=== PATIENT | male | born 1950 | race Caucasian/White ===

== ENCOUNTER 2019-05-06 12:41 | Day surgery (SDC) | payer OTHER ==
[~2019-05-06] VITALS: Ht 177.8 cm; Wt 120.7 kg
[~2019-05-06 12:41] MED LIST: ASPI81EC PO; Alavert D-12 A1 EACH; Albuterol2.5 MG/0.5 INH; Altoprev20 MG; BUPR100 PO; CELE200 PO; CEPH500 PO; CHARCOAL; CITA20 PO; CLARITIN10 MG PO; DIAZ5 PO; DONE10 PO; Depo-Testos200 MG/ML; Endocet 7.5-321 EACH; FLUSAL1005; FLUT1DIS2 INH; Flonase 0.05% N16 GM; GABA300; GABA300 PO; GLIPIZIDE; GUAI600T33 PO; HYDACE5 PO; HYDACE5325 PO; HYDURE500; HYDURE500 PO; INSULANI SC; INVOKANA100 MG; INVOKANA100 MG PO; Ipratropium Bro30 ML; LIRA0.6P; LISI5; LISI5 PO; LORA10ER PO; LOVA20 PO; Lovastatin20 MG PO; METF850; METF850 PO; METFORMIN; MODA200; MODA200 PO; Metformin HCl850 MG PO; NAPR500 PO; NEUPRO1 EAC1 TD; OMEP10ER PO; OMEP20ER PO; ONGLYZA PO; OXYACE5T PO; Omeprazole20 M1; PRAM.5; PROP30DR; PSEHYDGUAL PO; Percocet 10-321 EACH PO; Prilosec Otc20 MG PO; RAME8; ROPI.25 PO; RXHYDACE PO; SAXAGLIPTIN PO; SERT50; SERT50 PO; SULTRIDS PO; Stool Softener100 MG; TAMS.4ER PO; TIOT18; TIOT18 INH; VARE1 PO; VICTOZA 3-0.6 MG/0.1 SC; VITAMIN D35000 UNIT; VITAMIN D35000 UNIT PO; Ventolin Soln3 ML; WARF1; WARF2; WARF3 PO
== END 2019-05-06 14:53 | disposition home or self-care (01) ==
LOC: ORSCSDS 12:41
PROVIDERS: Internal Medicine Gastroenterology
PROC: 0DB68ZX Excision of Stomach, Via Natural or Artificial Opening Endoscopic, Diagnostic (ICD-10-PCS; principal; 2019-05-06 14:00)
PROC: 0D757ZZ Dilation of Esophagus, Via Natural or Artificial Opening (ICD-10-PCS; principal; 2019-05-06 14:00)
DX: R13.14 Dysphagia, pharyngoesophageal phase (principal); K22.2 Esophageal obstruction; K29.70 Gastritis, unspecified, without bleeding; I10 Essential (primary) hypertension; Z95.0 Presence of cardiac pacemaker; J44.9 Chronic obstructive pulmonary disease, unspecified; F17.210 Nicotine dependence, cigarettes, uncomplicated; Z99.81 Dependence on supplemental oxygen; Z86.73 Personal history of transient ischemic attack (TIA), and cerebral infarction without residual deficits; E66.01 Morbid (severe) obesity due to excess calories; Z68.38 Body mass index [BMI] 38.0-38.9, adult; Z79.899 Other long term (current) drug therapy; Z79.01 Long term (current) use of anticoagulants
CPT/HCPCS: 82947; 87081; 88305; 88342; J2704; J7120

== ENCOUNTER 2020-09-01 05:31 | Inpatient (IN) | payer OTHER ==
[~2020-09-01] VITALS: Ht 182.9 cm; Wt 107.4 kg
[2020-09-01 05:54] LABS: BASOPHILS ABSOLUTE AUTO 0.07 K/mm3 (0.00-0.23); BASOPHILS PERCENT AUTO 1 % (0-2); EOSINOPHILS ABSOLUTE AUTO 0.08 K/mm3 (0.00-0.68); EOSINOPHILS PERCENT AUTO 1 % (0-6); Hematocrit 53.6 % (37.0-53.0); Hemoglobin 16.8 g/dL (13.5-17.5); IMMATURE GRAN ABSOLUTE AUTO 0.12 K/mm3 (0.00-0.10); IMMATURE GRAN PERCENT AUTO 1 % (0-1); LYMPHOCYTES ABSOLUTE AUTO 3.27 K/mm3 (0.84-5.20); LYMPHOCYTES PERCENT AUTO 27 % (21-46); MONOCYTES ABSOLUTE AUTO 0.74 K/mm3 (0.16-1.47); MONOCYTES PERCENT AUTO 6 % (4-13); Mean Corpuscular HGB 34.7 pg (26.0-34.0); Mean Corpuscular HGB Conc 31.3 g/dL (31.5-36.5); Mean Corpuscular Volume 111 fL (80-100); NEUTROPHILS ABSOLUTE AUTO 7.76 K/mm3 (1.96-9.15); NEUTROPHILS PERCENT AUTO 64 % (41-73); Platelet Count 148 K/mm3 (150-400); RDW Coefficient Variation 16.7 % (11.7-14.2); RDW Standard Deviation 70.1 fL (35.1-46.3); Red Blood Cell Count 4.84 M/mm3 (4.30-5.90); White Blood Cell Count 12.04 K/mm3 (4.00-11.30)
[2020-09-01 06:15] LABS: Calcium, Ionized (POC) 1.07 mmol/L (1.10-1.46); Chloride (POC) 103 mmol/L (98-108); Creatinine (POC) 1.4 mg/dL (0.8-1.3); Glucose (ISTAT POC) 203 mg/dL (70-99); Sodium (POC) 139 mmol/L (135-148); Total CO2 (POC) 26 mmol/L (21-32)
[2020-09-01 06:16] LABS: Alanine Aminotransfer (ALT/SGP 23 U/L (12-78); Albumin, Blood 3.4 g/dL (3.4-5.0); Albumin/Globulin Ratio 0.8 (0.8-1.8); Alk Phos 65 U/L (50-136); Anion Gap 8 mmol/L (6-16); Aspartate Aminotrans (AST/SGOT 30 U/L (12-37); Bilirubin, Total 0.6 mg/dL (0.1-1.0); Blood Urea Nitrogen 16 mg/dL (8-24); Bun/Creatinine Ratio 14.3 (12.0-20.0); CO2, Blood 26 mmol/L (21-32); Calcium, Blood 8.2 mg/dL (8.5-10.1); Chloride, Blood 105 mmol/L (98-108); Creatinine, Blood 1.12 mg/dL (0.60-1.20); Globulin, Blood 4.2 g/dL (2.2-4.0); Glomerular Filtration Rate >60 (60-); Glucose, Blood 151 mg/dL (70-99); Potassium, Blood 4.3 mmol/L (3.5-5.5); Sodium, Blood 139 mmol/L (136-145); Total Protein, Blood 7.6 g/dL (6.4-8.2); Troponin I <0.015 ng/mL (0.000-0.040)
[2020-09-01 06:22] LABS: PO2 Arterial 137 mmHg (80-100); pH Blood Arterial 7.31 (7.35-7.45)
--- NOTE | 2020-09-01 08:45 | NUR ---
INITIAL ASSESSMENT PATIENT CAME TO UNIT INTUBATED AND ON PROPOFOL. PATIENT INCREASED TO 50 MCG/ KG/ MINUTE. PATIENT RESPONDING TO VERBAL STIMULI AND IS AGITATED. PATIENT DIAPHORETIC. NORMAL FLEXION NOTED. AFEBRILE. LUNGS DIM/ COARSE THROUGHOUT. BREATHING LABORED AND TACHYPNEIC. AC 14, TV 500, PEEP 5, 50% FIO2. HR 90S TO LOW 100S. PATIENT IN SR WITH BBB. BP STABLE ON LEVOPHED AT 8 MCG/ MINUTE. PATIENT NOTED TO HAVE DUAL- CHAMBER PACER. ABDOMEN MODERATELY DISTENDED, SOFT, WITH HYPOACTIVE BS NOTED. OG TO LIS. TEMP PROBE LOPEZ IN PLACE FROM ER. URINE DARK YELLOW IN COLOR. TR BAND TO R RADIAL SITE. 10 CC AIR INSTILLED. NO BLEEDING, BRUISING, OR HEMATOMA NOTED. BLES DISCOLORED WITH SCABS NOTED AND DRY. BED LOW, CALL LIGHT IN REACH. WILL CONTINUE TO MONITOR PATIENT FREQUENTLY THROUGHOUT SHIFT.
--- NOTE | 2020-09-01 08:50 | NUR ---
DR. BYRNE IN TO SEE PATIENT.
[2020-09-01 10:31] LABS: Source, Urine Clean Catch
[2020-09-01 10:38] LABS: Appearance, Urine Clear (Clear); Bilirubin, Urine Neg (Neg); Blood, Urine 4+ (Neg); Color, Urine Yellow (P-Yellow); Glucose Qualitative, Urine 4+ (Neg); Ketones, Urine Neg (Neg); Leukocyte Esterase, Urine Neg (Neg); Nitrite, Urine Neg (Neg); Protein, Urine Neg (Neg); Specific Gravity, Urine 1.015 (1.003-1.022); Urobilinogen, Urine NORM (Normal)
[2020-09-01 10:47] LABS: Bacteria Rare /hpf; Squamous Epithelial Cells Rare /hpf (Few); White Blood Cells, Urine 0-2 /hpf (0-5)
--- NOTE | 2020-09-01 11:10 | NUR ---
DR. HIGGINS IN TO SEE PATIENT. SHOWED DOCTOR THE RHYTHM CHANGE AT 1016. STATED THAT PATIENT MAY GO IN AND OUT OF THIS RHYTHM BECAUSE OF PATIENT'S BUNDLE BLOCK. NO ORDERS RECEIVED AT THIS TIME.
--- NOTE | 2020-09-01 11:28 | NUR ---
2 CC AIR DEFLATED FROM TR BAND. SITE REMAINS STABLE. NO BLEEDING, BRUISING, HEMATOMA NOTED.
--- NOTE | 2020-09-01 11:48 | NUR ---
2 CC AIR DEFLATED FROM TR BAND. NO CHANGES TO SITE.
--- NOTE | 2020-09-01 11:59 | NUR ---
2 CC AIR DEFLATED FROM TR BAND. NO CHANGES TO SITE.
--- NOTE | 2020-09-01 12:40 | NUR ---
HR 70S TO 80S. BP STABLE ON LEVOPHED AT 5 MCG/ MINUTE. PROP AT 40 MCG/ KG/ MINUTE, PRECEDEX AT 0.4 MCG/ KG/ HOUR. AMIO AT 0.5 MG/ MINUTE. SPONTANEOUS PS 0/5, 40% FIO2. 4 CC LEFT IN TR BAND. SITE REMAINS STABLE. BLOOD SUGAR OF 353; COVERAGE GIVEN.
--- NOTE | 2020-09-01 12:42 | NUR ---
2 CC AIR DEFLATED. NO CHANGE TO SITE.
--- NOTE | 2020-09-01 13:00 | NUR ---
TR BAND COMPLETELY DEFLATED. SITE REMAINS STABLE. NO BLEEDING, BRUISING, HEMATOMA NOTED. TR BAND AND ARMBOARD REMAIN IN PLACE. WILL CONTINUE TO MONITOR.
[2020-09-01 15:27] LABS: Base Excess Venous -7.9 mmol/L; PCO2 Venous 39.2 mmHg (38-42); PO2 Venous 41.3 mmHg (38-42); pH Blood Venous 7.29 (7.34-7.37)
--- NOTE | 2020-09-01 16:05 | NUR ---
TEMP OF 99.8 DEGREES FAHRENHEIT. HR 70S TO 80S. LEVOPHED AT 14 MCG/ MINUTE. PRECEDEX AT 0.4 MCG/ KG/ HOUR. AMIO AT 0.5 MG/ MINUTE. PROP AT 40 MCG/ KG/ MINUTE. VASOPRESSIN AT 0.04 UNITS/ MINUTE. R RADIAL SITE REMAINS WNL.
--- NOTE | 2020-09-01 16:40 | NUR ---
DR. BYRNE INFORMED THAT PATIENT'S TEMPERATURE HAS INCREASED TO 100.0 DEGREES FAHRENHEIT. DOCTOR ALSO INFORMED THAT LEVOPHED HAS BEEN INCREASED UP TO 16 MCG/ MINUTE AND THAT VASOPRESSIN HAS BEEN INFUSING. NO ORDERS RECEIVED AT THIS TIME.
[2020-09-01 18:54] LABS: Bun/Creatinine Ratio 13.1 (12.0-20.0); Calcium, Blood 8.1 mg/dL (8.5-10.1); Creatinine, Blood 1.76 mg/dL (0.60-1.20); Potassium, Blood 5.7 mmol/L (3.5-5.5)
--- NOTE | 2020-09-01 19:00 | NUR ---
SHIFT SUMMARY PATIENT REMAINED DIAPHORETIC. PATIENT HAD TMAX OF 100.9 DEGREES FAHRENHEIT. PATIENT REMAINED INTUBATED AND ON SEDATION. PATIENT ON SPONTANEOUS PS 0/5 AND 30% FIO2. PATIENT REMAINED IN SR TO ST WITH BBB, HR 70S TO LOW 100S. NO SIGNS OF PACING FROM PACEMAKER NOTED. PRESSORS INCREASED THROUGHOUT SHIFT FOR HYPOTENSION. NO BM THIS SHIFT. PATIENT REMAINED NPO. OG TO LIS. LOPEZ DRAINED 1780 MLS OF DARK YELLOW URINE. VASOPRESSIN AT 0.4 UNITS/ MINUTE, PROPOFOL AT 15 MCG/ KG/ MINUTE, LEVOPHED AT 16 MCG/ MINUTE, AMIO AT 0.5 MG/ MINUTE, PRECEDEX AT 1.2 MCG/ KG/ HOUR. PATIENT RECEIVED 80 MG IV LASIX THIS SHIFT. PATIENT'S LACTIC ACID CONTINUED TO RISE THIS SHIFT. BLOOD SUGARS OVER 500. DR. BYRNE NOTIFIED AND 12 UNITS INSULIN GIVEN. LABS THEN SENT IMMEDIATELY TO LAB BEFORE INSULIN GIVEN. PATIENT'S STEP SON HERE ALL DAY. REPORT WILL BE GIVEN TO ASSUMING BEAN ROASTER NURSE SHORTLY.
[2020-09-01 19:12] LABS: Glucose, Blood 485 mg/dL (70-99)
[2020-09-01 19:17] LABS: Base Excess Venous -10.3 mmol/L; Bicarbonate Venous 16.8 mmol/L (24.0-30.0)
[2020-09-01 19:18] LABS: pH Blood Venous 7.26 (7.34-7.37)
[2020-09-01 20:57] LABS: Glucose, Blood 466 mg/dL (70-99)
[2020-09-01 22:20] LABS: Adenovirus Not Detected (NOT DETECT); Bordetella pertussis Not Detected (NOT DETECT); Chlamydophila pneumoniae Not Detected (NOT DETECT); Coronavirus 229E Not Detected (NOT DETECT); Coronavirus HKU1 Not Detected (NOT DETECT); Coronavirus NL63 Not Detected (NOT DETECT); Coronavirus OC43 Not Detected (NOT DETECT); Human Metapneumovirus Not Detected (NOT DETECT); Human Rhinovirus/Enterovirus Not Detected (NOT DETECT); Influenza A/2009-H1 Not Detected (NOT DETECT); Influenza A/H1 Not Detected (NOT DETECT); Influenza A/H3 Not Detected (NOT DETECT); Influenza B Not Detected (NOT DETECT); Mycoplasma pneumoniae Not Detected (NOT DETECT); Parainfluenza Virus 1 Not Detected (NOT DETECT); Parainfluenza Virus 2 Not Detected (NOT DETECT); Parainfluenza Virus 3 Not Detected (NOT DETECT); Parainfluenza Virus 4 Not Detected (NOT DETECT); Respiratory Syncytial Virus Not Detected (NOT DETECT); SARS-Cov-2 (COVID-19), BioFire Not Detected (NOT DETECT)
--- NOTE | 2020-09-01 23:27 | NUR ---
CARE ASSUMED 1900 PT INTUBATED AND SEDATED. PROPOFOL AT 15 MCG/KG/MIN, PRECEDEX 1.2 MCG/KG/HR. PT RESPONDS TO NOXIOUS STIMULI. PS 0/5, 30% WITH PERIODS OF APNEA > 10 SECONDS. VASOPRESSIN 0.04 UNITS/MIN AND LEVOPHED AT 14 MCG/MIN. CENTRAL LINE TO IJ, DRESSING SOILED, PT VERY DIAPHORETIC AND NOT STICKING TO SKIN. PTS TEMP ELEVATED 101.1. WAS NOTIFIED OF CRITICAL LAB VALUES, LACTIC ACID 9.9 AND VENOUS PH 7.26. PTS CBG 485. NOTIFIED DR. BYRNE OF CRITICALS, ORDER RECIEVED FOR INSULIN DRIP AND OR TYLENOL. COOLING BLANKET APPLIED WITH EFFECTIVE TEMP DOWN TO 99.3. PROVIDER ASKED NOT TO BE CALLED FOR CRITICAL LABS TONIGHT AND TO USE ELECTROLYTE PROTOCOL. DR. BYRNE ASKED TO AVOID ADMINISTERING FLUIDS. DR. BYRNE WOULD LIKE MEDIUM SLIDING SCALE RESUMED ONCE CBG < 200 AND INSULIN DRIP STOPPED. TEMP LOPEZ CATH IN PLACE, HANGING TO GRAVITY. VENT SETTINGS CHANGED TO SIMV 14 WITH PC 8 AND PS 0/5, FIO2 30%. POSITIVE RESPONSE TO CHANGE TO SIMV WITH NO APNEIC PERIODS NOTED. PTS LEVOPHED AND VASOPRESSIN TITRATED OFF DURING BRIEF SEDATION VACATION, SEE FLOW SHEET. DURING SEDATION VACATION PT OPENS EYES OCCASIONALLY AND PULLING/MOVES EXTREMS. UNABLE TO FOLLOW COMMANDS AT THIS TIME. VSS.
[2020-09-02 03:27] LABS: BASOPHILS ABSOLUTE AUTO 0.02 K/mm3 (0.00-0.23); BASOPHILS PERCENT AUTO 0 % (0-2); EOSINOPHILS PERCENT AUTO 0 % (0-6); Hematocrit 48.9 % (37.0-53.0); Hemoglobin 15.2 g/dL (13.5-17.5); IMMATURE GRAN ABSOLUTE AUTO 0.11 K/mm3 (0.00-0.10); IMMATURE GRAN PERCENT AUTO 1 % (0-1); LYMPHOCYTES ABSOLUTE AUTO 1.46 K/mm3 (0.84-5.20); LYMPHOCYTES PERCENT AUTO 13 % (21-46); MONOCYTES ABSOLUTE AUTO 0.75 K/mm3 (0.16-1.47); MONOCYTES PERCENT AUTO 7 % (4-13); Mean Corpuscular HGB 34.2 pg (26.0-34.0); Mean Corpuscular HGB Conc 31.1 g/dL (31.5-36.5); Mean Corpuscular Volume 110 fL (80-100); Mean Platelet Volume 11.4 fL (9.1-12.4); NEUTROPHILS ABSOLUTE AUTO 8.58 K/mm3 (1.96-9.15); NEUTROPHILS PERCENT AUTO 79 % (41-73); NRBC ABSOLUTE 0.03 K/mm3 (0.00-0.02); NRBC Auto 0.3 /100 WBC (0.0-0.2); Platelet Count 118 K/mm3 (150-400); RDW Coefficient Variation 16.7 % (11.7-14.2); RDW Standard Deviation 69.3 fL (35.1-46.3); Red Blood Cell Count 4.45 M/mm3 (4.30-5.90); White Blood Cell Count 10.92 K/mm3 (4.00-11.30)
[2020-09-02 03:48] LABS: Magnesium, Blood 2.7 mg/dL (1.6-2.4)
[2020-09-02 03:49] LABS: Albumin/Globulin Ratio 0.9 (0.8-1.8); Bilirubin, Total 0.9 mg/dL (0.1-1.0); Bun/Creatinine Ratio 17.5 (12.0-20.0); Calcium, Blood 7.8 mg/dL (8.5-10.1); Creatinine, Blood 1.66 mg/dL (0.60-1.20); Globulin, Blood 3.5 g/dL (2.2-4.0); Potassium, Blood 4.6 mmol/L (3.5-5.5); Total Protein, Blood 6.5 g/dL (6.4-8.2)
--- NOTE | 2020-09-02 06:16 | NUR ---
SHIFT SUMMARY PT INTUBATED AND SEDATED. SIMV 14, PC 8, PS 0/5, 30% WITH SPO2 96-100% T/O SHIFT. PTS MAP DECREASED TO 63-60 AND LEVOPHED RESTARTED AT 0550 AT 3 MCG/MIN AND INCREASED TO 6 MCG/MIN AT 0616. PRECEDEX 1.2 MCG/KG/HR. PT OCCASIONALLY STARTS TO COUGH (THICK BLOOD TINGED SECRETION'S) AND BECOMES AGITATED (PULLING ON RESTRAINTS) AND OPENS EYES DURING TURNS, UNABLE TO FOLLOW COMMANDS. TREATED PER EMAR WITH FENTANYL. TEMP DECREASED TO 98.2 AND COOLING BLANKET REMOVED FROM PT. TEMP LOPEZ CATH IN PLACE, HANGING TO GRAVITY WITH 700 MLS CLEAR YASIR URINE OUTPUT DURING SHIFT. OG TUBE IN PLACE WITH 400 MLS BLOOD TINGED THICK OUTPUT. PT IN SR WITH BBB, HR 60-70'S, AND MAP > 60. RIGHT RADIAL SITE C/D/I. WILL CONTINUE TO MONITOR UNTIL REPORT IS HANDED OFF TO ONCOMING RN.
--- NOTE | 2020-09-02 08:42 | NUR ---
ASSUMED CARE OF PT AT 0700. REPORT FROM PARESH/STEVEN OLIVARES. PT INTUBATED AND SEDATED. VENT SETTINGS SIMV PC 8 PS0/5, 30%. PROPOFOL INFUSING AT 15 MCG/KG/MIN, PRECEDEX GTT AT 1.2 MCG/KG/HR. DURING SEDATION VACATION, PT ATTEMPTS TO OPEN EYES, DOES NOT FOLLOW COMMANDS. INCREASED IRREGULAR RESP, LARGE TITAL VOLUMES (1400) FOLLOWED BY PERIODS OF APNEA AND SHALLOW RESP (400). RESTARTED PROPOFOL. LUNGS DIMINISHED IN BASES. THIN BLOOD TINGED SPUTUM FROM ETT. COUGH AND GAG REFLEX PRESENT. AMIODORONE GTT AT 0.5 MG/MIN, RATE 70'S. INSULIN GTT PLACED ON STANDBY, WILL MONITOR CHEMBG Q1. LEVOPHED GTT AT 6 MCG/MIN, WILL TITRATE FOR MAP >65. CENTRAL LINE TO RIGHT IJ, DRESSING C/DI. CATH EXPOSED 4 CM FROM INSERTION SITE. ABD ROUND, SOFT, NON TENDER. BT X 4. OGT TO LIS, BROWN/MAROON EMESIS OUT. LOPEZ PATENT AND DRAINING TO GRAVITY. BLE COOL, DISCOLORED, UNABLE TO DOPPLER PULSES AT THIS TIME. OPSITE TO RIGHT RADIAL ACCESS SITE c ARM BOARD IN PLACE. NO SWELLING, HEMATOMA NOTED. WILL CONTINUE TO MONITOR.
--- NOTE | 2020-09-02 18:21 | NUR ---
SHIFT SUMMARY PT REMAINS INTUBATED AND SEDATED, VENT SETTINGS UNCHANGED THIS SHIFT, SIMV 14 PC 8 PC0/5 30%. PROPOFOL GTT AT 35 MCG/KG/MIN, PRECEDEX PLACED ON STANDBY D/T FEVER. LEVOPHED GTT AT 8 MCG/KG/MIN, VASOPRESSIN 0.04 UNIT/HR, MAP>65. TITRATED DURING SHIFT, BP LABILE. O2 SATS STABLE, HR SR c BBB, RATE 60-70S. TMAX 104 THIS SHIFT. TYLENOL GIVEN s RELIEF, COOLING BLANKETS AND ICE PACKS APPLIED s RELIEF, TEMP STARTED TO DECREASE AFTER PRECEDEX PLACED ON STANDBY. CURRENTLY 102.9. ANTIBIOTICS CHANGED THIS SHIFT D/T GRAM NEG RODS IN SPUTUM. THICK BROWN c BLOOD TINGED SECRETIONS. OLIGURIA, 75 ML TURBID URINE OUT. DR ROD AWARE. 24 HOUR URINE ORDERED AND TO BE COMPLETED 09/03 AT 1600. TUBE FEEDING STARTED, VHT AT 15 ML/HR c 30 ML FLUSHES q4. GOAL 45 ML/HR. RESIDUALS 70 ML THIS AFTERNOON. AMIODORONE GTT D/C'D AND PO ORDERED. ECHO COMPLETED THIS SHIFT. PT TRANSITIONED TO HIGH SS INSULIN AND LANTUS THIS SHIFT, INSULIN GTT ON STANDBY. NO CHANGED TO RIGHT RADIAL ACCESS SITE OR BILATERAL LOWER EXTREMITIES. WILL CONTINUE TO MONITOR UNTIL REPORT TO ONCOMING NURSE.
--- NOTE | 2020-09-02 21:47 | NUR ---
CARE ASSUMED 1900 PT INTUBATED AND SEDATED. VENT SETTINGS SIMV 14, PC 8, AND PS 0/5, 30%, SPO2 97-100%. PROPOFOL INFUSING AT 35 MCG/KG/MIN, LEVOPHED @ 8 MCG/MIN, AND VASOPRESSIN 0.04 UNIT/MIN, MAP >65. PT RESPONDS TO NOXIOUS STIMULI AND DOES NOT OPEN EYES DURING TURNS. SLIGHT GRIMACE DURING ORAL CARE. OG TUBE IN PLACE WITH VITAL HIGH PROTEIN @ RATE OF 15 ML/HR (GOAL RATE 45 ML/HR) WITH 30 ML FLUSH'S Q4. RESIDUAL OF 350 MLS REMOVED. PTS BOWEL TONES ARE HYPOACTIVE. DR. ROD CALLED AND ORDERS RECIEVED TO STOP TUBE FEED FOR THE NIGHT. DR. ROD AWARE OF BLOOD GLUCOSE OF 329, NO NEW ORDERS RECIEVED. ORDERS RECIEVED FOR PROTONIX AND PROBIOTICS. RIGHT RADIAL SITE C/D/I. PULSES ON BLE ABSENT, BILATERAL FEMORAL AND POPLITEAL PULSES FOUND USING DOPPLER. PT HAS TEMP OF 102.6, PLACED COOLING BLANKET UNDER HIM AND ON TOP, TEMP DECREASED TO100.0 CURRENTLY. TEMP LOPEZ IN PLACE WITH 24 HOUR URINE COLLECTION, DARK YELLOW CLOUDY URINE. VSS. WILL CONTINUE TO MONITOR.
[2020-09-03 03:32] LABS: BASOPHILS ABSOLUTE AUTO 0.05 K/mm3 (0.00-0.23); BASOPHILS PERCENT AUTO 0 % (0-2); EOSINOPHILS ABSOLUTE AUTO 0.01 K/mm3 (0.00-0.68); EOSINOPHILS PERCENT AUTO 0 % (0-6); Hematocrit 49.7 % (37.0-53.0); Hemoglobin 15.7 g/dL (13.5-17.5); IMMATURE GRAN ABSOLUTE AUTO 0.15 K/mm3 (0.00-0.10); IMMATURE GRAN PERCENT AUTO 1 % (0-1); LYMPHOCYTES ABSOLUTE AUTO 1.52 K/mm3 (0.84-5.20); LYMPHOCYTES PERCENT AUTO 12 % (21-46); MONOCYTES PERCENT AUTO 3 % (4-13); Mean Corpuscular HGB 34.8 pg (26.0-34.0); Mean Corpuscular HGB Conc 31.6 g/dL (31.5-36.5); Mean Corpuscular Volume 110 fL (80-100); Mean Platelet Volume 11.7 fL (9.1-12.4); NEUTROPHILS PERCENT AUTO 83 % (41-73); NRBC ABSOLUTE 0.05 K/mm3 (0.00-0.02); NRBC Auto 0.4 /100 WBC (0.0-0.2); Platelet Count 101 K/mm3 (150-400); Red Blood Cell Count 4.51 M/mm3 (4.30-5.90); White Blood Cell Count 12.43 K/mm3 (4.00-11.30)
[2020-09-03 03:48] LABS: Bun/Creatinine Ratio 15.7 (12.0-20.0); Creatinine, Blood 4.07 mg/dL (0.60-1.20); Magnesium, Blood 2.8 mg/dL (1.6-2.4); Phosphorus, Blood 6.5 mg/dL (2.5-4.9); Potassium, Blood 5.2 mmol/L (3.5-5.5)
--- NOTE | 2020-09-03 05:59 | NUR ---
SBT/SEDATION VACATION PROPOFOL TITRATED DOWN TO 10 MCG/KG/MIN. VENT SETTING CHANGED TO PS 7/5, FIO2 30%. TIDAL VOLUMES > 500. VITAL SIGNS STABLE, SEE FLOW SHEET. PT UNABLE TO RESPOND TO STIMULI AT THE BEGINNING OF TRAIL. AT THE END OF TRAIL PT BECAME AGITATED, OPENS EYES BUT UNABLE TO FOLLOW COMMANDS. DUE TO PT TOLERATING TRAIL WELL LEFT ON SPONTANEOUS WITH SAME SETTINGS. PTS RR BETWEEN 17-24. VSS.
--- NOTE | 2020-09-03 06:18 | NUR ---
SHIFT SUMMARY PT INTUBATED AND SEDATED. PROPOFOL 15 MCG/KG/MIN. LEVOPHED AT 2 MCG/MIN, MAP > 65. VENT SETTING PS 7/5, FI O2 30%, SPO2 > 97% AFTER SEDATION VACATION. TOLERATING WELL. PT PLACED ON BEAR HUGGER DUE TO TEMP DECREASING TO 94.2 AT 0320. BEAR HUGGER HAS HELPED TO INCREASE TEMP TO 95.5. PT HAS NO IMPROVEMENT IN NEURO STATUS, CONTINUES TO GRIMACE OCCASIONALLY BUT UNABLE TO FOLLOW COMMANDS. BOWEL TONES HYPOACTIVE, OG TO LIS WITH 475 MEDEL FORMULA COLOR DISCHARGE. TEMP LOPEZ IN PLACE WITH 80 MLS OF URINE OUTPUT DURING SHIFT. CONTINUES ON 24 HOUR URINE COLLECTION. BLE PULSES ABSENT AND LEFT LOWER EXTREM TOE HAS PURPLE DISCOLORATION, SEE PICTURE IN CHART. WILL REPORT TO ONCOMING SHIFT.
--- NOTE | 2020-09-03 07:26 | NUR ---
Received report from Milton OLIVARES andvee Rivas RN in room. Patient is intubated and sedated. He has 8.0 ET and 25cm at gums with vent settings of Spon. mode, PS 7, FiO2 30%, Peep 5. and sats of 93%. He opens eyes to noxious stimuli and moved distal extremities minmally. His pupils are#3 bilaterally and brisk. His distal LE pulses very faint by doppler but present He has 16Fr temp ramos drainging to [facility] in bucket of ice for 24 hr urine that ends today at 1600, his temp 97.2 and has warm blankets in place. He has OG in place that is on LIS post high residuals of TF. He is on minimal sedation of Propofol at 15 mcg/kg/min and for pressure support 4 mcg/min Levophed with systolic 90-100. He has 18ga IV LAC dressing intact and site WNL's and flushed and SL'd. He has all gtt's infusing into quad lumen RIJ CL dressing intact and site WNL's. He has two places, one under each breast area that has small areas of reaction to adhesive that are drying and healing.
--- NOTE | 2020-09-03 10:00 | NUR ---
Patient step son at bedside. Dr Escoto by and assessed and we extubated at 0930 and released restraints as well. He follows minimal commands. VSS, See EMR. Am meds done through OG before extubated. He is currently 4L O2 via NC and sats >90%.
--- NOTE | 2020-09-03 12:35 | NUR ---
Patient has been awaken and is able to communicate his needs minimally. He stated he was in pain and medicated with Fentanyl per JAN, RT reduced to 2L O2 via NC and sats 93%. VSS, See EMR. CBG 84 and no coverage needed, Continue to get faint doppler pulses to LE's bilaterally. CL remains in and intact and infusing Levophed at 4mcg/min that was increased just before extubation for MAPS <60 and currently systolic 112 and MAP >65.
--- NOTE | 2020-09-03 14:30 | NUR ---
Patient has been resting in bed, he has been using arms to exercise as I showed him for better strength. His communication is getting better. Been titrating Levophed between 5-7 mcg/min for Map >65. Rhythm has been irregular most of shift. Pulses bilateral LE continue to be faint by doppler, and distal LE discolored.
[2020-09-03 15:24] LABS: Bun/Creatinine Ratio 16.6 (12.0-20.0); Calcium, Blood 7.1 mg/dL (8.5-10.1); Creatinine, Blood 4.76 mg/dL (0.60-1.20); Potassium, Blood 3.9 mmol/L (3.5-5.5)
--- NOTE | 2020-09-03 16:30 | NUR ---
While admitting another patient the patient pulled his RIJ out 90% and pulled rest of way and placed gauze and clear dressing over. I placed PICC line in EDUIN and transferred Levophed at 5mcg/kg and NS at TKO. 24 hour urine sent to lab and 550ml claudia colored urine. While awake he continues to do exercises with his UE and minimal with LE's. VSS, See EMR.
--- NOTE | 2020-09-03 18:05 | NUR ---
Patient has been doing well since extubation at 0930. He has PICC line to EDUIN and is infusing Levophed at 7mcg/min for systolic to maintain >65. Irregular rhythm in the 70. He has good cough that clears and suction within reach. He has tolerated Ice chips twice. Hernandez continues to drain to gravity darker yellow urine and temp between 99.0-100.3, Fan on patient. He is on 2.5L O2 via NC and sats >90%.
[2020-09-03 20:22] LABS: Bun/Creatinine Ratio 15.6 (12.0-20.0); Calcium, Blood 7.3 mg/dL (8.5-10.1); Creatinine, Blood 5.14 mg/dL (0.60-1.20); Magnesium, Blood 2.6 mg/dL (1.6-2.4); Phosphorus, Blood 6.9 mg/dL (2.5-4.9)
--- NOTE | 2020-09-03 20:40 | NUR ---
CARE ASSUMED 1900 PT ON 2 L VIA NC, SPO2 97-100%. COARSE LUNG SOUNDS T/O EXCEPT IN RLL RHONCHI NOTED. PT DOES NOT HAVE LABORED BREATHING. PRODUCTIVE COUGH WITH THICK YELLOW SECATIONS OCCASIONALLY. PT TAUGHT TO USE SUCTION WHILE COUGHING. PT IS ABLE TO FOLLOW DIRECTIONS. PT A/O TO SELF/SURROUNDINGS BUT STATES THAT HE THINKS HE IS IN [facility] (PT REORIENTED). LEVOPHED AT 7 MCG'S AND CHANGED TO 5 DUE TO MAPS > 65, SEE FLOW SHEET. PT HAS OCCASIONAL SVT AND DR. ROD MADE AWARE. ORDERS RECIEVED TO REMOVED PICC LINE 2 CM, PICC REMOVED TO 6 CM. DECREASED SVT NOTED. CHECKED PTS CBG, CBG RESULTS OF [address] DOUGLAS. ORDERS RECIEVED TO HOLD ALL INSULIN TONIGHT AND START NEW SLIDING SCALE TONIGHT. DIET ADVANCED, PT ABLE TO TAKE PILLS WITH PUDDING. TEMP LOPEZ IN PLACE WITH CURRENT TEMP OF 99.5, WILL CONTINUE TO MONITER. PT TAUGHT HOW TO USE CALL LIGHT. VSS.
[2020-09-04 01:29] LABS: Albumin, Blood 2.4 g/dL (3.4-5.0); Anion Gap 15 mmol/L (6-16); Blood Urea Nitrogen 86 mg/dL (8-24); Bun/Creatinine Ratio 16.3 (12.0-20.0); CO2, Blood 20 mmol/L (21-32); Calcium, Blood 6.9 mg/dL (8.5-10.1); Chloride, Blood 107 mmol/L (98-108); Creatinine, Blood 5.27 mg/dL (0.60-1.20); Glomerular Filtration Rate 11 (60-); Glucose, Blood 63 mg/dL (70-99); Phosphorus, Blood 6.2 mg/dL (2.5-4.9); Potassium, Blood 3.7 mmol/L (3.5-5.5); Sodium, Blood 142 mmol/L (136-145)
[2020-09-04 04:08] LABS: Base Excess Venous -6.8 mmol/L; Bicarbonate Venous 19.9 mmol/L (24.0-30.0); PO2 Venous 83.2 mmHg (38-42); pH Blood Venous 7.38 (7.34-7.37)
[2020-09-04 04:15] LABS: BASOPHILS ABSOLUTE AUTO 0.03 K/mm3 (0.00-0.23); BASOPHILS PERCENT AUTO 0 % (0-2); EOSINOPHILS ABSOLUTE AUTO 0.01 K/mm3 (0.00-0.68); EOSINOPHILS PERCENT AUTO 0 % (0-6); Hematocrit 45.3 % (37.0-53.0); Hemoglobin 14.7 g/dL (13.5-17.5); IMMATURE GRAN ABSOLUTE AUTO 0.08 K/mm3 (0.00-0.10); IMMATURE GRAN PERCENT AUTO 1 % (0-1); LYMPHOCYTES ABSOLUTE AUTO 0.74 K/mm3 (0.84-5.20); LYMPHOCYTES PERCENT AUTO 7 % (21-46); MONOCYTES ABSOLUTE AUTO 0.47 K/mm3 (0.16-1.47); MONOCYTES PERCENT AUTO 4 % (4-13); Mean Corpuscular HGB 34.3 pg (26.0-34.0); Mean Corpuscular HGB Conc 32.5 g/dL (31.5-36.5); Mean Corpuscular Volume 106 fL (80-100); Mean Platelet Volume 12.1 fL (9.1-12.4); NEUTROPHILS ABSOLUTE AUTO 9.97 K/mm3 (1.96-9.15); NEUTROPHILS PERCENT AUTO 88 % (41-73); Platelet Count 98 K/mm3 (150-400); RDW Coefficient Variation 16.9 % (11.7-14.2); Red Blood Cell Count 4.29 M/mm3 (4.30-5.90)
[2020-09-04 04:44] LABS: Magnesium, Blood 2.8 mg/dL (1.6-2.4); Uric Acid, Blood 17.1 mg/dL (3.5-7.2)
[2020-09-04 04:47] LABS: Alanine Aminotransfer (ALT/SGP 3555 U/L (12-78); Albumin, Blood 2.5 g/dL (3.4-5.0); Albumin/Globulin Ratio 0.7 (0.8-1.8); Alk Phos 53 U/L (50-136); Anion Gap 15 mmol/L (6-16); Aspartate Aminotrans (AST/SGOT 1979 U/L (12-37); Bilirubin, Total 2.8 mg/dL (0.1-1.0); Blood Urea Nitrogen 87 mg/dL (8-24); Bun/Creatinine Ratio 16.3 (12.0-20.0); CO2, Blood 19 mmol/L (21-32); CPK Creatine Kinase 1740 U/L (39-308); Chloride, Blood 108 mmol/L (98-108); Creatinine, Blood 5.34 mg/dL (0.60-1.20); Globulin, Blood 3.6 g/dL (2.2-4.0); Glomerular Filtration Rate 11 (60-); Glucose, Blood 49 mg/dL (70-99); Phosphorus, Blood 6.1 mg/dL (2.5-4.9); Potassium, Blood 3.6 mmol/L (3.5-5.5); Sodium, Blood 142 mmol/L (136-145); Total Protein, Blood 6.1 g/dL (6.4-8.2); Vancomycin, Random 35.2 ug/mL
--- NOTE | 2020-09-04 05:30 | NUR ---
CRITICAL LAB VALUE 0445 CRITICAL LAB VALUE NOTIFICATION RECIEVED AT 0445, GLUCOSE 49. 1/2 AMP D50 PULLED FROM PIXIS AND GIVEN TO PT. DR. DOUGLAS CALLED AT 0503 AND MADE AWARE OF LOW BLOOD SUGAR. 1/2 AMP D50 HAD GOOD EFFECT. PTS BLOOD SUGAR INCREASED TO 151. WILL CONTINUE TO MONITOR. DURING SHIFT ASSESSMENT AT 0440, IT IS TO BE NOTED THAT PT HAD ALTERED MENTAL STATUS FROM PREVIOUS STATE. PT WAS LETHARGIC, DIAPHORETIC, AND INCREASED THIRST. PT HAD IMPROVEMENT AFTER RECEIVING 1/2 AMP D50 IN MENTAL STATUS WELL.
--- NOTE | 2020-09-04 06:23 | NUR ---
SHIFT SUMMARY PT CURRENTLY SLEEPING IN ROOM. HE WAS AWAKE T/O THE NIGHT STATING HE COULD NOT SLEEP BUT DENIES PN. PT A/O TO STATING HIS NAME T/O THE SHIFT, HIS FAMILY MEMBERS NAMES, AND . PLEASE SEE LAST NOTE FOR CRITICAL LAB VALUE, DECREASE BLOOD SUGAR. PT HAD SLIGHT IMPROVEMENT IN CBG (83) BUT MENTAL STATUS CHANGES CONTINUE TO BE PRESENT AND PT CONTINUES TO BE DIAPHORTIC. PT ABLE TO HAVE FEW BITES OF PUDDING. BUT EASILY BECOMES LETHARGIC. CBG RECHECKED AT 0630 WITH RESULTS OF 72. PT CONTINUES TO BE LETHERGIC, UNABLE TO FORM A SENTANCE, AND IS DIAPHORTIC. 1/2 AMP OF D50 GIVEN TO PT. DR. ROD CALLED AND ORDERS RECIEVED FOR D5 WITH 1/2 NS AT RATE OF 50 CC/HR AND TO D/C LANTUS. ON 2 L VIA NC, CRACKLES NOTED ON LLL. SPO2 95-100% T/O SHIFT BUT PT CONTINUES TO BE TACHYPNEIC AT TIMES. DR. THOMPSON CALLED EARLIER IN SHIFT AND ASKED DR. NEGRETE TO BE CONSULTED. DR. NEGRETE CALLED THE UNIT TO ASK FOR LABS TO BE DRAWN AND 24 URINE STARTED. PTS VSS T/O. LEVO REMAINED OFF T/O SHIFT.
--- NOTE | 2020-09-04 08:25 | NUR ---
Received report from PARESH olivares and Rob OLIVARES. Patient sitting up in bed and drowsy. He is slow to respond and speach slurred at times. He has tolerated ice chips. VSS, See EMR. He has 16Fr temp Hernandez draining to gravity claudia colored urine. Dr Cooney ordered another 24 hour urine and called lab and they stated can go off yesterday urine and Dr Cooney agreed. Will be getting up to chair and evaluating swallow. Levophed has been off for 12 hours and systolic 112, HR 80's. Doppler faint pulses to distal LE's, discoloration to shins to purple toes. Patient has PICC line to EDUIN infusing NS TKO, and D51/2NS at 50ml/hr, dressing intact and site WNL's
--- NOTE | 2020-09-04 09:40 | NUR ---
Patient up to chair with lift. He tolerated small amounts of clear liquid diet. VSS. See, EMR. Hernandez draining adequate amounts. He is able to communicate.
--- NOTE | 2020-09-04 11:44 | NUR ---
Patient back to bed by ceiling lift, stated he was uncomfortable. Chnaged linen. Step-son at bedside. Dr Escoto assessed patient and is now PCU status. He is on 2L O2 via NC and has some apnic pereiods while sleepin and sats >90%. VSS, See EMR. Patient denies ay pain. Right radial site and RIJ site C/D/I and have clear op dressings covering.ontinues with ice chips occassionally.
--- NOTE | 2020-09-04 13:30 | NUR ---
Patient has been restless in bed and has not been sleeping since back to bed. VSS, See EMR. David has good light claudia output. He has been using flutter valve consistently. He remains on 2.5L O2 via NC and sats >90%'s.
[2020-09-04 14:39] LABS: Protein, Urine Quantitative 160.3 mg/dL (0.0-11.9)
--- NOTE | 2020-09-04 15:30 | NUR ---
Still awaiting PCU bed. Patient remains restless in bed and tolerating ice chips. Closed curtains and light off and he is still unable to rest. He seemes more confused the longer he stays awake. VSS, See EMR. He is on 2.5 L O2 via NC and sats >90%. He continues to use flutter valve while laying around. D51/2NS at 50 infusing through PICC line EDUIN.
--- NOTE | 2020-09-04 18:10 | NUR ---
Medicated for pain and general discomfort in hopes of him sleeping and he did off and on for the last few hours. CBG's remains mid 60's and gave D50 [address] Escoto switched fluids to D10 at 75 ml/hr. VS remains stable, See EMR. Hernandez put out 2300 mls with 680 mls in IV. Family brought home CPAP in afor him to use. Distal LE pulses remain by doppler and very faint.
--- NOTE | 2020-09-04 19:15 | NUR ---
INITAL SHIFT ASSESSMENT PT IS ALERT IN ROOM SITTING UP IN BED DURING BED SIDE REPORT FROM OFF GOING RN. PT STATES HE FEELS GOOD. EXPRESSES FEELING VERY TIRED AND WANTING TO GET SLEEP TONIGHT. COOPERTIVE FOR THIS RN'S ASSESSMENT. HE IS PULLING ON LINES AND CORDS CONSTANTLY, BUT WILL LET GO OF THEM WELL WITHOUT ANY PROMPTING. WILL CON'T TO PROTECT PT'S PICC LINE AND LOPEZ CATH. PT HAS OXYGEN ON NC AT 2L. SATS WNL. PT DOES HAVE A BASELINE APPERANCE OF BEING SOB, BUT DENIES FEELING SOB. RT IN ROOM TO SET UP HIS HOME CPAP. ABD VERY ROUND AND NON-TENDER TO PALPITATION WITH HYPERACTIVE BOWEL TONES. PT STATES HE IS HUNGRY. LOPEZ CATH IN PLACE DRAINING A FAIR AMOUNT OF YELLOW URINE. PT HAS VERY POOR CIRCULATION TO HIS TOES/FEET. DOPPLER BEING USED TO FIND PULSES. CALL LIGHT REVIEWED WITH PT. HE WAS NOT ABLE TO DEMONSTRATE USE HOWEVER. VITALS ARE STABLE AT THIS TIME. IV FLUIDS RUNNING INTO PICC LINE IN RIGHT UPPER ARM. CDI DRESSING. SEE EMAR FOR ALL MEDS ADMINISTERED T/O SHIFT. WILL CON'T TO MONITOR AND KEEP PT SAFE T/O REMAINDER OF SHIFT.
--- NOTE | 2020-09-04 23:06 | NUR ---
DR ROD 2249 - DR ROD CALLED REGARDING PT'S LOW BS LEVELS AND INCREASING HICKUPS WELL REPORTED HEART BURN. 1 AMP OF D50 ORDERED AND GIVEN TO PT WILL FOLLOW UP WITH A BS RE-CHECK. PT HAS BEEN GIVEN FENTANYL IV TO ATTEMPT TO HELP WITH THE HEART BURN/CHEST PAIN/HICKUPS WITH NO RESULTS. THUS IV PROTONIX ONE TIME DOSE WAS GIVEN TO SEE IF SOME RELIEF CAN BE PROVIDED. OTHER ORDERS WERE IMPLEMENTED WELL SEE ORDERS. PT DID WEAR HIS CPAP FOR A SHORT PERIORD OF TIME. HE APPEARS TO BE RESTLESS, BUT HAS EYES CLOSED AT THIS TIME. HICKUPS HAVE LESSENED. VITALS ARE STABLE. BP IS SLIGHTLY ELEVATED. WILL CON'T TO MONITOR AND TX.
--- NOTE | 2020-09-05 00:13 | NUR ---
CHEST PAIN UPDATE PT CON'T TO STATE HE HAD HEART BURN. THIS THEN TURNED INTO WHAT HE DESCRIBED 08/27 TIGHT/CRUSHING PAIN TO CHEST AND DOWN HIS LEFT ARM AND INTO HIS JAW. HIS BP INCREASED. HE ALSO BEGAN TO HAVE MORE HICKUPS AND MORE CHANGES ON HIS EKG. DR HIGGINS WAS CALLED AND SHE ORDERED TO HAVE NITRO SL GIVEN. IF THIS DID HELP TO PLACE PASTE ON. IF DID NOT HELP TO START A NITRO GTT. A 12 LEAD EKG WAS TAKEN AND PLACED IN CHART. NITRO SL WAS GIVEN TIMES THREE WITH VERY MINMAL RESULTS. THUS NITRO GTT WILL BE STARTED ORDERED. TRANSFER PT BACK TO ICU STATUS WELL. 2348 - 1 NITRO SL 08/27 168/85 2354 - 1 NITRO SL 08/27 129/77 2359 - 1 NITRO SL 05/27 168/77 0005 - 08/27 PAIN 143/84
--- NOTE | 2020-09-05 01:56 | NUR ---
N/V DR ROD PT HAD PROJECTILE N/V WITH ABOUT 500CC OF DARK BROWN LIQUID. DOES NOT APPEAR THAT PT ASPIRATED OXYGEN SATS ARE HOLDING IN THE MID 90'S. DR ROD ORDERED TO HAVE ZOFRAN IV GIVEN WELL AN NG TUBE PLACED TO LOW INT SUCTION. PT TOLERATED NG PLACEMENT TO LEFT NOSTRIL VERY WELL. COOPERTIVE WITH PROCEDURE. PLACEMENT WAS CONFIRMED BY AIR OSCULTATION. THEN SUCTION WAS PLACED AND DARK BROWN LIQUID WAS THE RETURN. NG TUBE WAS SECURED WITH TAPE TO NOSE WELL RIGHT CHEEK. PT CON'T TO HAVE HICKUPS AND STATES HE HAS GENERALIZED PAIN. PT CON'T TO BE VERY PLESANT AND COOPERTIVE WITH ALL CARE.
[2020-09-05 04:16] LABS: Hematocrit 45.5 % (37.0-53.0); Hemoglobin 14.9 g/dL (13.5-17.5)
[2020-09-05 04:43] LABS: Albumin, Blood 2.4 g/dL (3.4-5.0); Albumin/Globulin Ratio 0.6 (0.8-1.8); Alk Phos 59 U/L (50-136); Anion Gap 12 mmol/L (6-16); Bilirubin, Direct 2.4 mg/dL (0.0-0.3); Bilirubin, Indirect 0.7 mg/dL (0.1-0.7); Bilirubin, Total 3.1 mg/dL (0.1-1.0); Blood Urea Nitrogen 91 mg/dL (8-24); Bun/Creatinine Ratio 16.7 (12.0-20.0); CO2, Blood 22 mmol/L (21-32); Calcium, Blood 7.5 mg/dL (8.5-10.1); Chloride, Blood 107 mmol/L (98-108); Creatinine, Blood 5.46 mg/dL (0.60-1.20); Globulin, Blood 3.9 g/dL (2.2-4.0); Glomerular Filtration Rate 11 (60-); Glucose, Blood 145 mg/dL (70-99); Magnesium, Blood 2.7 mg/dL (1.6-2.4); Phosphorus, Blood 6.1 mg/dL (2.5-4.9); Potassium, Blood 3.6 mmol/L (3.5-5.5); Sodium, Blood 141 mmol/L (136-145); Total Protein, Blood 6.3 g/dL (6.4-8.2)
[2020-09-05 04:44] LABS: Alanine Aminotransfer (ALT/SGP 2604 U/L (12-78); Aspartate Aminotrans (AST/SGOT 1102 U/L (12-37)
[2020-09-05 04:56] LABS: CPK Creatine Kinase 1055 U/L (39-308)
--- NOTE | 2020-09-05 05:51 | NUR ---
SHIFT SUMMARY PT HAS STABLE VITALS AT THIS TIME. NITRO GTT WAS STARTED AROUND 0030 WITH GOOD RESULTS NO CHEST PAIN AT THIS TIME. PT HAS HOWEVER CON'T TO HAVE LOTS OF CHANGES TO HIS BASELINE HRR, BUT CON'T TO DENY PAIN. NITRO GTT HAS BEEN AT 15MCG WITH NO NEED FOR TITRATION. OXYGEN NEEDED TO BE TITRATED UP TO 4L TO KEEP SATS IN THE LOW 90'S. PT HAS BEEN WEARING THE OXYGEN IN HIS MOUTH R/T NG TUBE IN PLACE. NG TUBE CON'T TO BE IN PLACE WITH MINIMAL OUTPUT. SUCTION IS ON LOW INT SETTINGS. PT HAS NOT PULLED AT NG TUBE. HE DOES PULL ON HIS LINES BUT HE HAS NOT PULLED ANY LINES OUT TONIGHT. PT CON'T TO HAVE HICKUPS OFF AND BUT HAS NOT HAD ANY MORE N/V SINCE PLACEMENT OF NG TUBE. PICC CON'T TO BE IN PLACE WITH CDI DRESSINGS. SEE EMAR FOR ALL ADMINISTERED MEDICATIONS. LOPEZ CATH HAD GOOD URINE OUTPUT. NO BM OF LAST NIGHT HOWEVER BOWEL CARE PROTOCOL HAS BEEN ORDERED AND WILL BE STARTED THIS AM. BLOOD SUGARS HAVE STABILIZED ON THE D10 GTT T/O SHIFT. WILL CON'T TO MONITOR PT AND KEEP SAFE TILL REPORT TO ONCOMING RN.
--- NOTE | 2020-09-05 09:08 | NUR ---
ASSUMPTION OF CARE ASSUMED CARE OF PATIENT AND RECEIVED REPORT FROM NOC RN. PT AWAKENS SPONTANEOUSLY, DENIES CHEST PAIN. NITRO DRIP INFUSING AT 15MCG/HR. CALL LIGHT IN REACH.
[2020-09-05 09:43] LABS: HBSAG SCREEN Negative (Negative); HEP A AB, IGM Negative (Negative); HEP B CORE AB, IGM Negative (Negative); HEP C VIRUS AB <0.1 (0.0-0.9)
--- NOTE | 2020-09-05 10:46 | NUR ---
SWALLOW EVAL SWALLOW EVAL TOOK PLACE AT BEDSIDE PERFORMED BY SPEECH THERAPY. AFTER EVAL PATIENT REPORTED CHEST PAIN, COUGHING NOTED. CHEST XRAY PERFORMED. DR. ROD NOTIFIED. NEW ORDERS RECEIVED, WILL MONITOR AND TREAT PRESCRIBED.
--- NOTE | 2020-09-05 12:47 | NUR ---
BLOOD SUGAR REPORTED PATIENT'S BLOOD SUGAR TO DR. ROD. RECIEVED ORDERS TO CHANGE IV FLUIDS.
--- NOTE | 2020-09-05 18:28 | NUR ---
SHIFT SUMMARY PATIENT REMAINS OFF NITRO DRIP. VITALS STABLE, PATIENT DENIES DISCOMFORTS. USING CALL LIGHT, AND TURNING SELF IN BED APPROPRIATELY. LOPEZ TO GRAVITY. WILL GIVE REPORT TO ONCOMING RN.
--- NOTE | 2020-09-05 19:11 | NUR ---
ASSUMED PT CARE FROM SHIRLENE RN PT AWAKE AND SITTING UP IN BED. OG TO LOW INTERMITTENT SUCTION WITH MINIMAL OUTPUT. PT IS ALERT AND ORIENTED AND ABLE TO MAKE NEEDS KNOWN. OXYGEN SATURATIONS >90% ON ROOM AIR. DENIES CHEST PAIN. D5 1/2 NS INFUSING AT 50MLS/HR VIA RIGHT UPPER ARM PICC. DENIES ANY NAUSEA, WELL ABDOMINAL PAIN. CALL LIGHT WITHIN REACH. VSS, SEE FLOWSHEET.
[2020-09-06 03:15] LABS: PCO2 Arterial 36.4 mmHg (35-45); PO2 Arterial 74.6 mmHg (80-100); pH Blood Arterial 7.43 (7.35-7.45)
[2020-09-06 04:09] LABS: BASOPHILS ABSOLUTE AUTO 0.03 K/mm3 (0.00-0.23); BASOPHILS PERCENT AUTO 0 % (0-2); EOSINOPHILS ABSOLUTE AUTO 0.07 K/mm3 (0.00-0.68); EOSINOPHILS PERCENT AUTO 1 % (0-6); Hematocrit 48.9 % (37.0-53.0); Hemoglobin 15.8 g/dL (13.5-17.5); IMMATURE GRAN ABSOLUTE AUTO 0.11 K/mm3 (0.00-0.10); IMMATURE GRAN PERCENT AUTO 1 % (0-1); LYMPHOCYTES ABSOLUTE AUTO 0.61 K/mm3 (0.84-5.20); LYMPHOCYTES PERCENT AUTO 7 % (21-46); MONOCYTES ABSOLUTE AUTO 1.15 K/mm3 (0.16-1.47); MONOCYTES PERCENT AUTO 12 % (4-13); Mean Corpuscular HGB Conc 32.3 g/dL (31.5-36.5); Mean Corpuscular Volume 105 fL (80-100); Mean Platelet Volume 11.6 fL (9.1-12.4); NEUTROPHILS ABSOLUTE AUTO 7.42 K/mm3 (1.96-9.15); NEUTROPHILS PERCENT AUTO 79 % (41-73); Platelet Count 99 K/mm3 (150-400); RDW Coefficient Variation 16.8 % (11.7-14.2); RDW Standard Deviation 65.9 fL (35.1-46.3); Red Blood Cell Count 4.65 M/mm3 (4.30-5.90); White Blood Cell Count 9.39 K/mm3 (4.00-11.30)
[2020-09-06 04:24] LABS: Albumin, Blood 2.5 g/dL (3.4-5.0); Anion Gap 11 mmol/L (6-16); Blood Urea Nitrogen 104 mg/dL (8-24); Bun/Creatinine Ratio 22.9 (12.0-20.0); CO2, Blood 24 mmol/L (21-32); Calcium, Blood 7.8 mg/dL (8.5-10.1); Chloride, Blood 108 mmol/L (98-108); Creatinine, Blood 4.55 mg/dL (0.60-1.20); Glomerular Filtration Rate 14 (60-); Glucose, Blood 132 mg/dL (70-99); Magnesium, Blood 2.6 mg/dL (1.6-2.4); Phosphorus, Blood 5.7 mg/dL (2.5-4.9); Potassium, Blood 4.1 mmol/L (3.5-5.5); Sodium, Blood 143 mmol/L (136-145)
--- NOTE | 2020-09-06 06:17 | NUR ---
END OF SHIFT SUMMARY PT HASN'T SLEPT MUCH THIS SHIFT. WAS ALERT AND ORIENTED X4 AT THE BEGINNING AND HAS PROGRESSIVELY BECOME MORE CONFUSED AND FORGETFUL. DENIES ANY CHEST PAIN, WELL NAUSEA. PT C/O SOB WHILE LYING FLAT AND WITH MINIMAL EXERTION DURING REPOSITIONING. HOB ELEVATED TO 30 DEGREES TO HELP WITH VENTILATION. PT HAS NOTED TO CHANGE IN AND OUT OF VARIOUS RHYTHMS T/O NIGHT, SUCH ATRIAL FLUTTER, FIRST DEGREE HEART BLOCK, JUNCTIONAL, AND NSR WITH BBB ACCOMPANIED WITH PVC'S AND PAC'S. HOWEVER, BP'S REMAINED STABLE. PT STATES HE JUST FEELS VERY WEAK AND IS VERY TIRED. HE IS ABLE TO REPOSITION SELF IN BED. LOPEZ CATHETER IS PATENT AND DRAINING LARGE AMOUNTS OF CLEAR, YASIR COLORED URINE TO GRAVITY. PT WORE HIS BIPAP WITH 2L BLEED IN OFF AND ON T/O NIGHT AND REQUIRED 5L VIA NC WHEN HE WAS SLEEPING WHEN HE WAS NOT WEARING HIS BIPAP. OG HAS BEEN CLAMPED AFTER MED ADMINISTRATION. PT HAS BEEN TOLERATING ICE CHIPS. PICC LINE TO RIGHT UPPER ARM CONTINUES WITH D5 1/2 NS AT 50MLS/HR AND NS TKO. PT HAS BEEN UTILIZING CALL LIGHT APPROPRIATELY. VSS, SEE FLOWSHEET. WILL CONTINUE TO MONITOR UNTIL REPORT IS HANDED OFF TO ONCOMING RN.
--- NOTE | 2020-09-06 07:11 | NUR ---
Received report from Rob OLIVARES. Patient sitting up in bed awake and able tp communicate his needs. He is not 100% clear and has some confusing statements. He has 4L O2 via NC and sats >90% and continues to have productive cough that he clears. He has home CPAP at bedside that used part of night supervisor. He has NG to left nares that is clamped. He has PICC line CHAYO, dressing intact and site WNL and is infusing D51/2NS at 50ml/hr and NS TKO. He moved upper extremities with some fine motor and LE's gross movements only. Faint distal LE pulses by doppler only and discoloration from shins to purple toes. He has clear opsite at right radial site and is WNL's as well as RIJ site with clear op site dressing and is WNL's.
--- NOTE | 2020-09-06 09:30 | NUR ---
Patient has been doing well, he still knutson'nt feel that he can sleep. He remains on 4L O2 via NC ands sats >90%. Speech eval being done. Patient repositions self in bed. VSS, See EMR.
[2020-09-06 09:43] LABS: International Normalized Ratio 1.44; Prothrombin Time Results 15.1 Sec (9.7-11.5)
--- NOTE | 2020-09-06 11:49 | NUR ---
Dr Lujan by nto see patient no new orders. Step son at bedside. VSS, See EMR. He has been try to rest. He has been doing well with using all extremities.
--- NOTE | 2020-09-06 13:33 | NUR ---
Patient sitting up in bed eating lunch with minimal assist from step son. He remains on 4L O2 via NC and sats >90%. He had large liquid stool and changed linen and gave full bed bath. He denies any current pain. Dr Loo in room with patient doing assessment. He is now PCU status. He is moving all extremities well and was able to push selh up in bed and positions self in bed. He has call light within reach.
[2020-09-06 14:08] LABS: ALBUMIN 2.5 g/dL (2.9-4.4); ALPHA-1-GLOBULIN 0.4 g/dL (0.0-0.4); ALPHA-2-GLOBULIN 0.9 g/dL (0.4-1.0); BETA GLOBULIN 0.7 g/dL (0.7-1.3); GAMMA GLOBULIN 0.7 g/dL (0.4-1.8); GLOBULIN, TOTAL 2.7 g/dL (2.2-3.9); IMMUNOGLOBULIN A, QN, SERUM 237 mg/dL (61-437); IMMUNOGLOBULIN G, QN, SERUM 663 mg/dL (603-1613); IMMUNOGLOBULIN M, QN, SERUM 131 mg/dL (15-143); M-SPIKE 0.1 g/dL (Not Observed); PROTEIN, TOTAL, SERUM 5.2 g/dL (6.0-8.5)
--- NOTE | 2020-09-06 15:30 | NUR ---
Patients son went home and patient had PT and OT at different times come by and did well. He tolerated lunch well, puree diet. VSS, See EMR. Patient continues to be PCU status. He snezzed out his NG and pulled rest of way and OK with Dr Loo.
--- NOTE | 2020-09-06 16:56 | NUR ---
Gave report to Gera OLIVARES. I&O's done. Patient had 3100ml urine recorded this shift. No significant changes this note from last. CBG 197 no coverage needed, not much drop from 247 with D51/2NS off. He is able to tolerate meals with minmal assist. VSS, See EMR.
--- NOTE | 2020-09-06 17:10 | NUR ---
ASSUMED CARE REPORT RECIEVED. PT IS RESTING QUIETLY. VITAL SIGNS STABLE. WILL CONTINUE TO MONITOR.
--- NOTE | 2020-09-06 18:03 | NUR ---
SUMMARY NO ACUTE CHANGES SINCE ASSUMPTION OF CARE. PT REMAINS ALERT AND PLEASANT. PT SLOW TO RESPOND AND FORGETFUL AT TIMES. VITAL SIGNS STABLE. PT ON 4L O2 NC. PT TOLERATING PO PUREE DIET WELL. LOPEZ IN PLACE. PICC TO EDUIN IN PLACE WITH NS INFUSING TKO. NO FAMILY AT BEDSIDE. WILL CONTINUE TO MONITOR AND REPORT OFF TO ONCOMING RN.
--- NOTE | 2020-09-06 22:24 | NUR ---
CARE ASSUMED 1900 PT SITTING IN BED AND TALKING TO STAFF. A/O TO PLACE, PERSON, AND EVENT. CURRENTLY ON 4 L NC, SPO2 92%. TKO INFUSING TO RIGHT UPPER ARM PICC. TEMP LOPEZ CATH IN PLACE WITH CLOUDY YELLOW URINE. PT ABLE TO TOLERATE PUREE DIET, TOOK MEDICATION WITH APPLE SAUCE. PTS CBG [address] LLOYD MADE AWARE OF PTS INCREASED DIET/ELEVATED BLOOD SUGAR, DR. LLOYD SAID TO KEEP SLIDING SCALE IS AND WILL ADDRESS IN THE MORNING. CALL MADE TO DR. LLOYD ABOUT PCU STATUS AND STATUS CHANGED TO MEDICAL FLOOR STATUS WITH TELEY. CALL PLACED TO CONCRETE GUN OPERATOR AND MADE AWARE OF BEING ON TELE. VSS. PT NOTED TO BE IDIOVENTRICULAR RHYTHM BUT ASYMPTOMATIC, HR OF 90.
[2020-09-07 03:34] LABS: Hematocrit 49.2 % (37.0-53.0)
[2020-09-07 03:48] LABS: International Normalized Ratio 1.44; Prothrombin Time Results 15.1 Sec (9.7-11.5)
[2020-09-07 03:58] LABS: Albumin, Blood 2.5 g/dL (3.4-5.0); Anion Gap 10 mmol/L (6-16); Blood Urea Nitrogen 108 mg/dL (8-24); Bun/Creatinine Ratio 29.8 (12.0-20.0); CO2, Blood 25 mmol/L (21-32); Calcium, Blood 8.1 mg/dL (8.5-10.1); Chloride, Blood 106 mmol/L (98-108); Creatinine, Blood 3.63 mg/dL (0.60-1.20); Glomerular Filtration Rate 18 (60-); Glucose, Blood 151 mg/dL (70-99); Magnesium, Blood 2.5 mg/dL (1.6-2.4); Phosphorus, Blood 6.4 mg/dL (2.5-4.9); Potassium, Blood 3.7 mmol/L (3.5-5.5); Sodium, Blood 141 mmol/L (136-145)
--- NOTE | 2020-09-07 06:25 | NUR ---
SHIFT SUMMARY PT HAD EPISODE OF MENTAL DECLINE AND SEVERE HEADACHE AT APPROXIMATELY 0400. PT STATES HIS HEAD FEELS LIKE IT IS ABOUT TO "BLOW UP" AND PN RADIATES TO THE LEFT EYE. ICE PACK APPLIED TO THE BACK OF THE HEAD AND COLD CLOTH TO HEAD. PT TREATED PER EMAR. DR. LLOYD CALLED DUE TO PTS PN INCREASING, OCCASIONAL IDIOVENTRICULAR RHYTHM, AND PT BECOMING DROWSY/FURTHER DECLINE IN MENTAL STATUS. ORDER RECIEVED FOR FENTANYL, PTS PN SLOWLY DECREASED AFTER. PT HAS DELIRIUM AND MOMENTS OF HALLUCINATION (THINKS THE STAFF IS HIS ABDIAZIZ OR MOTHER). DR. CARMEN CALLED TO UPDATE ON PT STATUS AND ORDERS RECIEVED FOR MELATONIN AND TEMAZEPAM. PT CONTINUES TO HAVE HALLUCINATION AND IS UNABLE TO BE ORIENTED. PT HAD CRYING SPELLS WHERE HE STATED THAT HE WAS GOING TO AND WANTED TO SPEAK TO HIS . PTS SON, HASMUKH, CALLED AND UPDATED ON PT STATUS. HE STATES THAT HE WOULD LIKE TO BRING PTS IN TO SEE PT. PTS HAS LAST STAGE OVARIAN CANCER AND WAS TOLD SHE HAS 3-6 MONTHS TO LIVE. 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 ALL QUESTIONS ANSWERED. WILL REPORT TO ONCOMING SHIFT.
--- NOTE | 2020-09-07 07:58 | NUR ---
Received report PARESH RN. Patient sitting up in bed awake and is able to communicate needs. He kn ows where he is at and it is an election year. He is confused [facility] meeting [facility] shift [facility] RN's thinking they are is and mother. he agrees he is disoriented at times, but very pleasant. Is is sitting up in bed feeding himself puree diet. He is on 2.5L O2 via NC and sats >90%. CBG 298 and covered per MAR. He has 16Fr temp ramos draining to gravity light claudia colored urine and temp 97.9. He has PICC line to EDUIN dressing intact and site WNL's and draws sluggishly and is infusing NS TKO. Patient moves all extremities well. Son is here to visit.
--- NOTE | 2020-09-07 10:07 | NUR ---
Patient's son remains at bedside. ST by to reevaluate and thin liquids ok. He tolerated am meds in applesauce and breakfast puree this am. No changes in orientation or speech.
[2020-09-07 10:08] LABS: ANTIGLOMERULAR BM AB 3 units (0-20)
--- NOTE | 2020-09-07 11:30 | NUR ---
Patient worked with PT and got up to chair and did well. He sat up and ate luch in chair. Son remains at bedside. VSS, See EMR. He was on RA while awake and sats 93%.
[2020-09-07 13:13] LABS: ANA DIRECT Negative (Negative); ANTIMYELOPEROXIDASE (MPO) ABS <9.0 U/mL (0.0-9.0); ANTIPROTEINASE 3 (PR-3) ABS <3.5 U/mL (0.0-3.5); ATYPICAL PANCA <1:20 titer (Neg:<1:20); CYTOPLASMIC (C-ANCA) <1:20 titer (Neg:<1:20); PERINUCLEAR (P-ANCA) <1:20 titer (Neg:<1:20)
--- NOTE | 2020-09-07 13:45 | NUR ---
Patient back in bed, received bath, Hernandez pulled and he has used urinal. He calls appropriately. VSS, See EMR and awaiting Tele Med bed. No other significant changes.
--- NOTE | 2020-09-07 16:29 | NUR ---
Patient is currently sleeping. He has been sitting at bedside to use urinal and placing himself back to bed. Dr Lujan by to see patient and no new orders. VSS, See EMR. No other changes. Patient remains on RA and sats >90%.
--- NOTE | 2020-09-07 17:42 | NUR ---
Patient is being transferred to [facility]. He is sitting at bedside eating Puree dinner and doing well. He ate his pm meds with puree diet. He has been positioning self up and down in bed to use urinal appropriately. VSS. See EMR. He has been on RA while awake and 2.5 L O2 via NC when sleeping if not on CPAP.
--- NOTE | 2020-09-07 18:32 | NUR ---
ARRIVED FROM ICU VIA W/C, PT TRANSFERRED W/ PERSON ASSIST, TOLERATED WELL, ORIENTED TO ROOM LAYOUT AND CALL LIGHT, BED ALARM PLACED, DENIES ANY PAIN OR ANY DISCOMFORT AT THIS TIME, REPORT TO NOC RN.
--- NOTE | 2020-09-07 18:46 | NUR ---
Initial spiritual care note: Mr. Fuller was tearful and spoke at length about his who is home on hospice. They have 3 attentive sons and Mr. Fuller expresses great love for his family. He appeared to benefit from prayer and gentle anticipatory bereavement dianetic counselor. Son arrived and visit concluded. I will remain available.
[2020-09-07 22:07] LABS: METANEPHRINE, UR 47 ug/L (Undefined)
--- NOTE | 2020-09-08 10:12 | NUR ---
ST IN TO SEE PT.
--- NOTE | 2020-09-08 10:17 | NUR ---
09/08/20 patient gave permission for care at 0930.
[2020-09-08 11:38] LABS: Alanine Aminotransfer (ALT/SGP 749 U/L (12-78); Albumin, Blood 2.9 g/dL (3.4-5.0); Albumin/Globulin Ratio 0.6 (0.8-1.8); Alk Phos 111 U/L (50-136); Anion Gap 8 mmol/L (6-16); Aspartate Aminotrans (AST/SGOT 102 U/L (12-37); Bilirubin, Total 2.3 mg/dL (0.1-1.0); Blood Urea Nitrogen 104 mg/dL (8-24); Bun/Creatinine Ratio 35.7 (12.0-20.0); CO2, Blood 29 mmol/L (21-32); Calcium, Blood 8.6 mg/dL (8.5-10.1); Chloride, Blood 103 mmol/L (98-108); Creatinine, Blood 2.91 mg/dL (0.60-1.20); Globulin, Blood 4.8 g/dL (2.2-4.0); Glomerular Filtration Rate 21 (60-); Glucose, Blood 83 mg/dL (70-99); Magnesium, Blood 2.4 mg/dL (1.6-2.4); Phosphorus, Blood 5.9 mg/dL (2.5-4.9); Potassium, Blood 4.6 mmol/L (3.5-5.5); Sodium, Blood 140 mmol/L (136-145); Total Protein, Blood 7.7 g/dL (6.4-8.2)
[2020-09-08 13:28] LABS: International Normalized Ratio 1.38; Prothrombin Time Results 14.5 Sec (9.7-11.5)
[2020-09-08 13:44] LABS: BASOPHILS ABSOLUTE AUTO 0.08 K/mm3 (0.00-0.23); BASOPHILS PERCENT AUTO 1 % (0-2); EOSINOPHILS ABSOLUTE AUTO 0.22 K/mm3 (0.00-0.68); EOSINOPHILS PERCENT AUTO 2 % (0-6); Hematocrit 54.7 % (37.0-53.0); Hemoglobin 17.6 g/dL (13.5-17.5); IMMATURE GRAN PERCENT AUTO 3 % (0-1); LYMPHOCYTES ABSOLUTE AUTO 1.76 K/mm3 (0.84-5.20); LYMPHOCYTES PERCENT AUTO 15 % (21-46); MONOCYTES ABSOLUTE AUTO 1.52 K/mm3 (0.16-1.47); MONOCYTES PERCENT AUTO 13 % (4-13); Mean Corpuscular HGB Conc 32.2 g/dL (31.5-36.5); Mean Corpuscular Volume 106 fL (80-100); Mean Platelet Volume 12.2 fL (9.1-12.4); NEUTROPHILS ABSOLUTE AUTO 8.21 K/mm3 (1.96-9.15); NEUTROPHILS PERCENT AUTO 68 % (41-73); Platelet Count 101 K/mm3 (150-400); RDW Coefficient Variation 16.9 % (11.7-14.2); RDW Standard Deviation 66.1 fL (35.1-46.3); Red Blood Cell Count 5.17 M/mm3 (4.30-5.90); White Blood Cell Count 12.09 K/mm3 (4.00-11.30)
--- NOTE | 2020-09-08 18:30 | NUR ---
SUMMARY NO ACUTE CHANGES T/O SHIFT. PT SHOWERED W/OT. WORKED W/PT. PT VOICED DISCOURAGEMENT AT CURRENT DIET R/T SWALLOWING PRECAUTIONS. SWALLOW STUDY PLANNED FOR TOMORROW. PT PLEASANT AND COOPERATIVE. CALL LIGHT IN REACH. RESTING IN BED.
--- NOTE | 2020-09-09 04:14 | NUR ---
SHIFT SUMMARY SITTING UP ON SIDE OF BED WHILE WATCHING TV. AAO X4, CARRASCO, FOLLOWS ALL COMMANDS. HAS HAD NO ISSUES WITH SWALLOWING NECTAR THICK LIQUIDS OR MEDS WITH APPLE SAUCE. CBG WAS ELEVATED LAST PM, MEDICATED PER EMAR. PT STATED AFTER [facility] MEDS THAT HE WANTED TO SPEAK WITH HIS . 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 NURSING REITERATED THAT IT IS OK TO ACCEPT HELP. HE CRIED FOR A FEW MOMENTS AND THEN STATED THAT HE FELT BETTER AND WAS GRATEFUL FOR THE PEP TALK. HAS DENIED FURTHER NEEDS OR WANTS AT THIS TIME. SAFETY MEASURES IN PLACE. WILL CONTINUE TO MONITOR AND GIVE HAND OFF TO ONCOMING SHIFT USING SBAR.
[2020-09-09 05:49] LABS: Hemoglobin 16.4 g/dL (13.5-17.5)
[2020-09-09 06:05] LABS: International Normalized Ratio 1.69; Prothrombin Time Results 17.6 Sec (9.7-11.5)
[2020-09-09 06:14] LABS: Albumin, Blood 2.7 g/dL (3.4-5.0); Anion Gap 10 mmol/L (6-16); Blood Urea Nitrogen 96 mg/dL (8-24); Bun/Creatinine Ratio 37.8 (12.0-20.0); CO2, Blood 28 mmol/L (21-32); Calcium, Blood 8.2 mg/dL (8.5-10.1); Chloride, Blood 99 mmol/L (98-108); Creatinine, Blood 2.54 mg/dL (0.60-1.20); Glomerular Filtration Rate 27 (60-); Glucose, Blood 107 mg/dL (70-99); Magnesium, Blood 2.2 mg/dL (1.6-2.4); Phosphorus, Blood 5.5 mg/dL (2.5-4.9); Potassium, Blood 3.2 mmol/L (3.5-5.5); Sodium, Blood 137 mmol/L (136-145)
--- NOTE | 2020-09-09 07:50 | NUR ---
PT SLEEPING DR NEGRETE BY EARLIER IVB KCL INFUSING
--- NOTE | 2020-09-09 08:48 | NUR ---
pt sitting up on edge of the bed awake eating breakfast pt sched for swallow study at 0930 talked with pt about it meds given as sched
--- NOTE | 2020-09-09 10:31 | NUR ---
pt back from swallow eval changes made order put in improved
[2020-09-09] MEDS ORDERED: Ventolin/Proventil INH (12:31)
[2020-09-09] MEDS ORDERED: Citalopram HBr20 MG PO (12:32)
[2020-09-09] MEDS ORDERED: FURO20 PO (12:33)
[2020-09-09] MEDS ORDERED: GABA300 PO (12:34)
[2020-09-09] MEDS ORDERED: GLIP10ER PO (12:36)
[2020-09-09] MEDS ORDERED: HYDURE500 PO (12:37)
[2020-09-09] MEDS ORDERED: INSULIN GLARGINE 100 UNIT/ML SC (12:38)
[2020-09-09] MEDS ORDERED: VICTOZA SC (12:39)
[2020-09-09] MEDS ORDERED: [UNRECOGNIZED DRUG - OTHER] SC (12:39)
[2020-09-09] MEDS ORDERED: LISI5 PO (12:40)
[2020-09-09] MEDS ORDERED: MEVACOR PO (12:42)
[2020-09-09] MEDS ORDERED: Glucophage 850850 MG PO (12:43)
[2020-09-09] MEDS ORDERED: METO50ER PO (12:44)
[2020-09-09] MEDS ORDERED: PROVIGIL200 MG PO (12:45)
[2020-09-09] MEDS ORDERED: OMEP20ER PO (12:46)
[2020-09-09] MEDS ORDERED: PERCOCET 10-321 EAC1 PO (12:47)
[2020-09-09] MEDS ORDERED: POTA20LUD PO (12:48)
[2020-09-09] MEDS ORDERED: SERT25 PO (12:50)
[2020-09-09] MEDS ORDERED: Flomax0.4 MG PO (12:51)
[2020-09-09] MEDS ORDERED: TIOT18 INH (12:52)
--- NOTE | 2020-09-09 16:54 | NUR ---
wc escort to [facility] no acute changes will call report
[2020-09-12 16:09] LABS: 5-HIAA, URINE 6.7 mg/L (Undefined); CREATININE, URINE 81.2 mg/dL (Not Estab.)
== END 2020-09-09 16:00 | DRG 208 ==
LOC: ER 05:31 → ICUW 06:54 → ICUE 06:54 → SURS 09-07 17:53
PROVIDERS: Emergency Medicine; Internal Medicine Cardiovascular Disease; Internal Medicine Critical Care Medicine; Internal Medicine Nephrology; ADMIT Internal Medicine
PROC: 0BH17EZ Insertion of Endotracheal Airway into Trachea, Via Natural or Artificial Opening (ICD-10-PCS; 2020-09-01)
PROC: 5A1945Z Respiratory Ventilation, 24-96 Consecutive Hours (ICD-10-PCS; 2020-09-01)
PROC: 4A023N7 Measurement of Cardiac Sampling and Pressure, Left Heart, Percutaneous Approach (ICD-10-PCS; 2020-09-01)
PROC: 5A2204Z Restoration of Cardiac Rhythm, Single (ICD-10-PCS; 2020-09-01)
PROC: B2111ZZ Fluoroscopy of Multiple Coronary Arteries using Low Osmolar Contrast (ICD-10-PCS; 2020-09-01)
PROC: 02HV33Z Insertion of Infusion Device into Superior Vena Cava, Percutaneous Approach (ICD-10-PCS; principal; 2020-09-03)
PROC: 3E043XZ Introduction of Vasopressor into Central Vein, Percutaneous Approach (ICD-10-PCS; 2020-09-03)
DX: J96.01 Acute respiratory failure with hypoxia (principal); E11.10 Type 2 diabetes mellitus with ketoacidosis without coma; I50.31 Acute diastolic (congestive) heart failure; N17.0 Acute kidney failure with tubular necrosis; J15.1 Pneumonia due to Pseudomonas; K72.00 Acute and subacute hepatic failure without coma; I47.2 Ventricular tachycardia; M62.82 Rhabdomyolysis; R57.9 Shock, unspecified; I11.0 Hypertensive heart disease with heart failure; J96.02 Acute respiratory failure with hypercapnia; E78.5 Hyperlipidemia, unspecified; G47.33 Obstructive sleep apnea (adult) (pediatric); I45.10 Unspecified right bundle-branch block; Z99.81 Dependence on supplemental oxygen; I25.10 Atherosclerotic heart disease of native coronary artery without angina pectoris; I34.0 Nonrheumatic mitral (valve) insufficiency; E11.43 Type 2 diabetes mellitus with diabetic autonomic (poly)neuropathy; Z95.0 Presence of cardiac pacemaker; E83.9 Disorder of mineral metabolism, unspecified; E88.09 Other disorders of plasma-protein metabolism, not elsewhere classified; E79.0 Hyperuricemia without signs of inflammatory arthritis and tophaceous disease; E11.649 Type 2 diabetes mellitus with hypoglycemia without coma; E66.9 Obesity, unspecified; F17.200 Nicotine dependence, unspecified, uncomplicated; Z68.35 Body mass index [BMI] 35.0-35.9, adult; Z79.4 Long term (current) use of insulin
CPT/HCPCS: 0202U; 31500; 31720; 36415; 36569; 36600; 71045; 74176; 74230; 76937; 80047; 80048; 80053; 80069; 80074; 80202; 81001; 81050; 82248; 82550; 82570; 82784; 82803; 82947; 83497; 83516; 83520; 83605; 83735; 83835; 83880; 84100; 84156; 84165; 84484; 84550; 84681; 85014; 85018; 85025; 85347; 85610; 86038; 86256; 86334; 86335; 87040; 87070; 87077; 87186; 87205; 92526; 92610; 92611; 92960; 93005; 93010; 93288; 93306; 93458; 94002; 94003; 94640; 94660; 94667; 94668; 94762; 96374-59; 96375-59; 97110; 97112; 97116; 97162; 97166; 97535; 99152; 99153; 99291-25; A9270-GY; C1751; C1769; C1887; C1894; C9113; J0282; J0330; J0692; J0696; J1644; J1650; J1815; J1940; J2001; J2250; J2405; J2704; J2930; J3010; J3370; J3475; J3480; J7030; J7040; J7042; J7050; J7060; Q9967; U0003

== ENCOUNTER 2021-02-16 14:32 | Emergency (ER) | payer OTHER ==
[~2021-02-16] VITALS: Ht 177.8 cm; Wt 114.3 kg
[~2021-02-16 14:32] MED LIST changes: +Citalopram HBr20 MG PO; +FURO20 PO; +Flomax0.4 MG PO; +GLIP10ER PO; +Glucophage 850850 MG PO; +MEVACOR PO; +PROVIGIL200 MG PO; -Prilosec Otc20 MG PO; +SERT25 PO; -SERT50 PO; -TAMS.4ER PO; -VICTOZA 3-0.6 MG/0.1 SC; +VICTOZA SC; +Ventolin/Proventil INH; -WARF3 PO; +[UNRECOGNIZED DRUG - OTHER] SC
[2021-02-16 15:25] LABS: BASOPHILS ABSOLUTE AUTO 0.04 K/mm3 (0.00-0.23); BASOPHILS PERCENT AUTO 1 % (0-2); EOSINOPHILS PERCENT AUTO 2 % (0-6); Hematocrit 44.8 % (37.0-53.0); Hemoglobin 15.4 g/dL (13.5-17.5); IMMATURE GRAN ABSOLUTE AUTO 0.06 K/mm3 (0.00-0.10); IMMATURE GRAN PERCENT AUTO 1 % (0-1); LYMPHOCYTES ABSOLUTE AUTO 1.76 K/mm3 (0.84-5.20); LYMPHOCYTES PERCENT AUTO 28 % (21-46); MONOCYTES ABSOLUTE AUTO 0.47 K/mm3 (0.16-1.47); MONOCYTES PERCENT AUTO 7 % (4-13); Mean Corpuscular HGB 34.5 pg (26.0-34.0); Mean Corpuscular HGB Conc 34.4 g/dL (31.5-36.5); Mean Corpuscular Volume 100 fL (80-100); NEUTROPHILS ABSOLUTE AUTO 3.96 K/mm3 (1.96-9.15); NEUTROPHILS PERCENT AUTO 62 % (41-73); Platelet Count 126 K/mm3 (150-400); RDW Coefficient Variation 11.9 % (11.7-14.2); RDW Standard Deviation 44.3 fL (35.1-46.3); Red Blood Cell Count 4.46 M/mm3 (4.30-5.90); White Blood Cell Count 6.39 K/mm3 (4.00-11.30)
[2021-02-16 15:44] LABS: Alanine Aminotransfer (ALT/SGP 36 U/L (12-78); Albumin, Blood 2.9 g/dL (3.4-5.0); Albumin/Globulin Ratio 0.7 (0.8-1.8); Alk Phos 131 U/L (50-136); Anion Gap 6 mmol/L (6-16); Aspartate Aminotrans (AST/SGOT 26 U/L (12-37); Bilirubin, Total 0.2 mg/dL (0.1-1.0); Blood Urea Nitrogen 17 mg/dL (8-24); Bun/Creatinine Ratio 22.5 (12.0-20.0); CO2, Blood 23 mmol/L (21-32); Calcium, Blood 8.5 mg/dL (8.5-10.1); Chloride, Blood 110 mmol/L (98-108); Creatinine, Blood 0.76 mg/dL (0.60-1.20); Globulin, Blood 3.9 g/dL (2.2-4.0); Glomerular Filtration Rate >60 (60-); Glucose, Blood 269 mg/dL (70-99); Potassium, Blood 4.1 mmol/L (3.5-5.5); Sodium, Blood 139 mmol/L (136-145); Total Protein, Blood 6.8 g/dL (6.4-8.2)
[2021-02-16 16:05] LABS: Prothrombin Time Results >90.0 Sec (9.7-11.5)
[2021-02-16 16:07] LABS: International Normalized Ratio >10.00
[2021-02-16] MEDS ORDERED: Amiodarone HCl200 MG PO (17:28)
[2021-02-16] MEDS ORDERED: ATOR40TA PO (17:28)
[2021-02-16] MEDS ORDERED: FINA5 PO (17:29)
[2021-02-16] MEDS ORDERED: BUME1 PO (17:29)
[2021-02-16] MEDS ORDERED: METO50ER PO (17:30)
[2021-02-16] MEDS ORDERED: Prilosec Otc20 MG PO (17:30)
[2021-02-16] MEDS ORDERED: POTCHL20ER PO (17:31)
[2021-02-16] MEDS ORDERED: SERT50 PO (17:32)
[2021-02-16] MEDS ORDERED: PRAZ5 PO (17:32)
[2021-02-16] MEDS ORDERED: TAMS.4ER PO (17:32)
[2021-02-16] MEDS ORDERED: HYDURE500 PO (17:33)
[2021-02-16] MEDS ORDERED: WARF3 (17:33)
[2021-02-16] MEDS ORDERED: VICTOZA 3-0.6 MG/0.2 SC (17:34)
[2021-02-16] MEDS ORDERED: PERCOCET 10-321 EAC1 PO (17:34)
[2021-02-16] MEDS ORDERED: BASAGLAR K100 UNIT/1 (17:36)
== END 2021-02-16 17:35 | disposition home or self-care (01) ==
LOC: ER 14:32
PROVIDERS: Physician Assistant
DX: T45.511A Poisoning by anticoagulants, accidental (unintentional), initial encounter (principal); R79.1 Abnormal coagulation profile; E11.9 Type 2 diabetes mellitus without complications; F17.200 Nicotine dependence, unspecified, uncomplicated; Z79.899 Other long term (current) drug therapy; Z88.8 Allergy status to other drugs, medicaments and biological substances; Z86.73 Personal history of transient ischemic attack (TIA), and cerebral infarction without residual deficits
CPT/HCPCS: 36415; 80053; 85025; 85610; 99283; A9270

== ENCOUNTER 2021-07-04 04:54 | Observation (INO) | payer OTHER ==
[~2021-07-04] VITALS: Ht 177.8 cm; Wt 117.9 kg
[~2021-07-04 04:54] MED LIST changes: +ATOR40TA PO; +Amiodarone HCl200 MG PO; +BASAGLAR K100 UNIT/1; +BUME1 PO; +FINA5 PO; +METO50ER PO; +PERCOCET 10-321 EAC1 PO; +POTCHL20ER PO; +PRAZ5 PO; +Prilosec Otc20 MG PO; +SERT50 PO; +TAMS.4ER PO; +VICTOZA 3-0.6 MG/0.2 SC; +WARF3 PO
[2021-07-04] MEDS ORDERED: OXYCODONE-ACET1 EAC2 (05:38)
[2021-07-04] MEDS ORDERED: NEUPRO TD (05:38)
[2021-07-04] MEDS ORDERED: BASAGLAR K100 UNIT/3 SC (05:38)
[2021-07-04] MEDS ORDERED: NEURONTIN300 MG PO (05:39)
[2021-07-04] MEDS ORDERED: PRAZ5 PO (05:39)
[2021-07-04] MEDS ORDERED: Potassium Chlo20 ME1 PO (05:40)
[2021-07-04 05:43] LABS: BASOPHILS ABSOLUTE AUTO 0.04 K/mm3 (0.00-0.23); BASOPHILS PERCENT AUTO 1 % (0-2); EOSINOPHILS ABSOLUTE AUTO 0.09 K/mm3 (0.00-0.68); EOSINOPHILS PERCENT AUTO 2 % (0-6); Hematocrit 41.6 % (37.0-53.0); Hemoglobin 14.4 g/dL (13.5-17.5); IMMATURE GRAN ABSOLUTE AUTO 0.05 K/mm3 (0.00-0.10); IMMATURE GRAN PERCENT AUTO 1 % (0-1); LYMPHOCYTES ABSOLUTE AUTO 1.69 K/mm3 (0.84-5.20); LYMPHOCYTES PERCENT AUTO 33 % (21-46); MONOCYTES ABSOLUTE AUTO 0.46 K/mm3 (0.16-1.47); MONOCYTES PERCENT AUTO 9 % (4-13); Mean Corpuscular HGB 34.6 pg (26.0-34.0); Mean Corpuscular HGB Conc 34.6 g/dL (31.5-36.5); Mean Corpuscular Volume 100 fL (80-100); Mean Platelet Volume 11.5 fL (9.1-12.4); NEUTROPHILS ABSOLUTE AUTO 2.75 K/mm3 (1.96-9.15); NEUTROPHILS PERCENT AUTO 54 % (41-73); Platelet Count 102 K/mm3 (150-400); RDW Coefficient Variation 15.8 % (11.7-14.2); RDW Standard Deviation 56.6 fL (35.1-46.3); Red Blood Cell Count 4.16 M/mm3 (4.30-5.90); White Blood Cell Count 5.08 K/mm3 (4.00-11.30)
[2021-07-04 06:05] LABS: Alanine Aminotransfer (ALT/SGP 28 U/L (12-78); Albumin/Globulin Ratio 0.8 (0.8-1.8); Alk Phos 105 U/L (50-136); Anion Gap 8 mmol/L (6-16); Aspartate Aminotrans (AST/SGOT 16 U/L (12-37); Bilirubin, Total 0.7 mg/dL (0.1-1.0); Blood Urea Nitrogen 17 mg/dL (8-24); Bun/Creatinine Ratio 19.1 (12.0-20.0); CO2, Blood 24 mmol/L (21-32); Calcium, Blood 8.4 mg/dL (8.5-10.1); Chloride, Blood 106 mmol/L (98-108); Creatinine, Blood 0.89 mg/dL (0.60-1.20); Globulin, Blood 3.6 g/dL (2.2-4.0); Glomerular Filtration Rate >60 (60-); Glucose, Blood 244 mg/dL (70-99); Sodium, Blood 138 mmol/L (136-145); Total Protein, Blood 6.6 g/dL (6.4-8.2); Troponin I <0.015 ng/mL (0.000-0.040)
[2021-07-04] MEDS ORDERED: BASAGLAR K100 UNIT/1 SC (12:24)
[2021-07-04] MEDS ORDERED: Magnesium250 MG PO (16:46)
--- NOTE | 2021-07-04 18:11 | NUR ---
SHIFT SUMMARY PT WAS ADMITTED AT NOON. INITIALLY C/O AN ACHE-LIKE FEELING IN HIS CHEST BUT DIDN'T THINK IT WAS CP. TELE WAS PLACED & HAS NO EVENTS SINCE. DR ANDERSON WAS BY AROUND 1500 TO SEE PT. LAST TROPONIN WAS WNL. UP W/ SBA. WORKED WITH THERAPY.
[2021-07-05 03:31] LABS: BASOPHILS ABSOLUTE AUTO 0.03 K/mm3 (0.00-0.23); BASOPHILS PERCENT AUTO 1 % (0-2); EOSINOPHILS ABSOLUTE AUTO 0.11 K/mm3 (0.00-0.68); EOSINOPHILS PERCENT AUTO 2 % (0-6); Hematocrit 40.9 % (37.0-53.0); Hemoglobin 14.1 g/dL (13.5-17.5); IMMATURE GRAN ABSOLUTE AUTO 0.04 K/mm3 (0.00-0.10); IMMATURE GRAN PERCENT AUTO 1 % (0-1); LYMPHOCYTES ABSOLUTE AUTO 1.81 K/mm3 (0.84-5.20); LYMPHOCYTES PERCENT AUTO 30 % (21-46); MONOCYTES ABSOLUTE AUTO 0.45 K/mm3 (0.16-1.47); MONOCYTES PERCENT AUTO 7 % (4-13); Mean Corpuscular HGB 34.6 pg (26.0-34.0); Mean Corpuscular HGB Conc 34.5 g/dL (31.5-36.5); Mean Corpuscular Volume 100 fL (80-100); Mean Platelet Volume 11.3 fL (9.1-12.4); NEUTROPHILS ABSOLUTE AUTO 3.65 K/mm3 (1.96-9.15); NEUTROPHILS PERCENT AUTO 60 % (41-73); Platelet Count 100 K/mm3 (150-400); RDW Coefficient Variation 15.4 % (11.7-14.2); RDW Standard Deviation 55.4 fL (35.1-46.3); Red Blood Cell Count 4.08 M/mm3 (4.30-5.90); White Blood Cell Count 6.09 K/mm3 (4.00-11.30)
[2021-07-05 03:44] LABS: International Normalized Ratio 3.77; Prothrombin Time Results 37.8 Sec (9.7-11.5)
[2021-07-05 03:47] LABS: Alanine Aminotransfer (ALT/SGP 25 U/L (12-78); Albumin, Blood 2.8 g/dL (3.4-5.0); Albumin/Globulin Ratio 0.8 (0.8-1.8); Alk Phos 99 U/L (50-136); Anion Gap 6 mmol/L (6-16); Aspartate Aminotrans (AST/SGOT 15 U/L (12-37); Bilirubin, Total 0.4 mg/dL (0.1-1.0); Blood Urea Nitrogen 14 mg/dL (8-24); Bun/Creatinine Ratio 17.3 (12.0-20.0); CO2, Blood 26 mmol/L (21-32); Chloride, Blood 104 mmol/L (98-108); Creatinine, Blood 0.81 mg/dL (0.60-1.20); Globulin, Blood 3.7 g/dL (2.2-4.0); Glomerular Filtration Rate >60 (60-); Glucose, Blood 339 mg/dL (70-99); Magnesium, Blood 1.9 mg/dL (1.6-2.4); Phosphorus, Blood 3.1 mg/dL (2.5-4.9); Potassium, Blood 3.8 mmol/L (3.5-5.5); Sodium, Blood 136 mmol/L (136-145); Total Protein, Blood 6.5 g/dL (6.4-8.2)
--- NOTE | 2021-07-05 07:17 | NUR ---
PT VSS T/O NIGHT. HR 100% PACED 70'S PER TELE MONITOR. PT DENIED CP/PRESSURE/SOB. 2LO2 NC IN PLACE WHILE SLEEPING PER BASELINE. TROPONINS REMIANED NEG. PT UP OOB W/FWW, SANDRITA WELL.
--- NOTE | 2021-07-05 16:53 | NUR ---
DISCHARGE SUMMARY PT A/O X4; PLEASANT AND COOPERATIVE WITH CARE. NO C/O CP/PRESSURE/PALPITATIONS THIS SHIFT. IND IN THE ROOM. MEDICATED FOR CHRONIC PAIN X1 THIS SHIFT. INSTRUCTED TO FOLLOW UP WITH CARDIOLOGY JONG AND REFERRAL CALLED IN. IV DC'D WNL. DC'D HOME WITH SON.
== END 2021-07-05 16:30 | disposition home or self-care (01) ==
LOC: ER 04:54 → ERHOLD 04:55 → SURS 11:30
PROVIDERS: Emergency Medicine; ADMIT Hospitalist
DX: R07.89 Other chest pain (principal); I10 Essential (primary) hypertension; E11.43 Type 2 diabetes mellitus with diabetic autonomic (poly)neuropathy; K31.84 Gastroparesis; I25.10 Atherosclerotic heart disease of native coronary artery without angina pectoris; E78.5 Hyperlipidemia, unspecified; I45.10 Unspecified right bundle-branch block; I48.0 Paroxysmal atrial fibrillation; N40.0 Benign prostatic hyperplasia without lower urinary tract symptoms; F32.9 Major depressive disorder, single episode, unspecified; I34.0 Nonrheumatic mitral (valve) insufficiency; G47.33 Obstructive sleep apnea (adult) (pediatric); Z95.0 Presence of cardiac pacemaker; Z87.891 Personal history of nicotine dependence; Z79.01 Long term (current) use of anticoagulants; Z88.8 Allergy status to other drugs, medicaments and biological substances
CPT/HCPCS: 36415; 71045; 80053; 82947; 83690; 83735; 84100; 84484; 85025; 85610; 93005; 93010; 97161; 97165; 97530; 97535; 99285-25; A9270; G0378

== ENCOUNTER 2021-09-12 10:11 | Day surgery (SDC) | payer OTHER ==
[~2021-09-12] VITALS: Ht 177.8 cm; Wt 120.0 kg
[~2021-09-12 10:11] MED LIST changes: +BASAGLAR K100 UNIT/1 SC; +BASAGLAR K100 UNIT/3 SC; +Magnesium250 MG PO; +NEUPRO TD; +NEURONTIN300 MG PO; +OXYCODONE-ACET1 EAC2; +Potassium Chlo20 ME1 PO
--- NOTE | 2021-09-12 16:01 | NUR ---
1515 PATIENT RETURNED FROM THE CATHLAB. PLACED ON THE MONITOR AND SIDE RAILS UP X 2 CALL LIGHT IN REACH. VVS. NO PAIN NOTED FROM THE PATIENT. RFA ANGIOSEAL SITE CDI. LEFT PEDAL SITE CDI. BOTH STABLE. SBAR FROM MARSHALL ALMANZAR. BEDREST FOR TWO AND A HALF HOURS AND THEN UP AB BRISEYDA.
--- NOTE | 2021-09-12 16:03 | NUR ---
1600 PATIENT TURNED SELF TO RIGHT SIDE WITH NURSE AT THE BEDSIDE AND VOIDED. 200 ML OF CLEAR YELLOW URINE NOTED.
--- NOTE | 2021-09-12 16:35 | NUR ---
PATIENT ASSISTED UP IN THE BED AND HOB UP. DINNER TRAY SERVED AND PATIENT FEEDING SELF. CALLED SON AND HE WILL BE HERE FOR 1800 DISCHARGE. RIGHT GROIN AND LEFT FOOT DRESSING CDI. NO HEMATOMA NOTED.
--- NOTE | 2021-09-12 17:33 | NUR ---
1715 PATIENT UP OOB WITH ASSISTANCE, OFF MONITOR. WALKING TO THE RESTROOM WITH WALKER. SLOW BUT STEADY. PAINFUL TO LEFT FOOT.
--- NOTE | 2021-09-12 17:34 | NUR ---
7405 PATIENT BACK TO THE BED. DRESSING SELF. GATHERING ALL BELONGINGS AND THEN SAT WITH THE PATIENT AND REVIEWED ALL DISCHARGE INSTRUCTIONS. COPIES GIVEN TO THE PATIENT.
--- NOTE | 2021-09-12 17:52 | NUR ---
PATIENT DISCHARGED HOME VIA WHEELCHAIR TO THE CAR WITH SON DRIVING. NO FURTHER QUESTIONS. WILL RETURN FOR THE RIGHT LEG INTERVENTION AT A LATER DATE. MARILYN WILL RESUME HIS WARFARIN TONIGHT ORDERED BY DR. ORTEGA.
== END 2021-09-12 18:00 | disposition home or self-care (01) ==
LOC: MHTC 10:11
DX: E11.51 Type 2 diabetes mellitus with diabetic peripheral angiopathy without gangrene (principal); I70.222 Atherosclerosis of native arteries of extremities with rest pain, left leg; K21.9 Gastro-esophageal reflux disease without esophagitis; I10 Essential (primary) hypertension; G47.33 Obstructive sleep apnea (adult) (pediatric); F17.210 Nicotine dependence, cigarettes, uncomplicated; Z88.8 Allergy status to other drugs, medicaments and biological substances; Z79.82 Long term (current) use of aspirin; Z79.899 Other long term (current) drug therapy
CPT/HCPCS: 37225; 37228; 75625; 75716; 75774; 76937; 82947; 85347; 93280; 99152; 99153; C1714; C1725; C1760; C1769; C1884; C1887; C1894; C2623; C9772; J1644; J2250; J3010; J7030; J7050; Q9967

== ENCOUNTER 2021-09-26 08:25 | Day surgery (SDC) | payer OTHER ==
[~2021-09-26] VITALS: Ht 177.8 cm; Wt 113.0 kg
[~2021-09-26 08:25] MED LIST changes: +ASPI81CH PO; +BISA10S PR; +LEVO750 PO; +MELA3 PO; +Ventolin/Prove6.7 GM INH
--- NOTE | 2021-09-26 10:34 | NUR ---
PATIENT PREPPED AND TAKEN TO THE CATHLAB FOR PROCEDURE. NOTIFIED SON.
--- NOTE | 2021-09-26 13:02 | NUR ---
PATIENT RETURNED FROM THE [facility]. PATIENT IS SLEEPY AND HAVING LEG TWICHING AND ARM TWITCHING, NOT SIMULTANEOUS, NO POST ITICAL STAGE NOTED. ONCE TWITCHING STOPS PATIENT IS LUCID AND FOLLOW COMMANDS MINIMALLY. VVS, NO PAIN NOTED FROM THE PATIENT. THIS WAS OBSERVED BY SEVERAL NURSES AND DID NOT FEEL THIS WAS SEIZURE ACTIVITY. WILL CONTINUE TO MONITOR.
--- NOTE | 2021-09-26 15:51 | NUR ---
1500 PATIENT UP TO THE RESTROOM. GAIT STEADY. LEFT GROIN STABLE. SON AT THE BEDSIDE. REVIEWED DISCAHRGE INSTRUCTIONS. FOLLOW UP APPOINTMENT MADE AND NOTED BY THE SON. DISCHARGE PAPERS SIGNED AND COPIES GIVEN. 1530 PATIENT DISCHARGED HOME VIA WHEELCHAIR WITH SON DRIVING HIN HOME.
== END 2021-09-26 15:30 | disposition home or self-care (01) ==
LOC: MHTC 08:25
DX: E11.51 Type 2 diabetes mellitus with diabetic peripheral angiopathy without gangrene (principal); I70.223 Atherosclerosis of native arteries of extremities with rest pain, bilateral legs; K21.9 Gastro-esophageal reflux disease without esophagitis; I10 Essential (primary) hypertension; G47.33 Obstructive sleep apnea (adult) (pediatric); Z88.8 Allergy status to other drugs, medicaments and biological substances; Z79.82 Long term (current) use of aspirin; Z79.899 Other long term (current) drug therapy; F17.210 Nicotine dependence, cigarettes, uncomplicated
CPT/HCPCS: 76937; 85347; 99152; 99153; C1724; C1725; C1760; C1769; C1887; C1894; J1644; J2250; J3010; J7030; J7050; Q9967

== ENCOUNTER → 2021-10-02 | Outpatient (CLI) | payer OTHER ==
[~2021-10-02] MED LIST changes: +AMOX-CLAV 875-1 EAC5; +Percocet 5-3251 EACH PO; +SULFAMETHOXAZO1 EAC1 PO
== END | disposition home or self-care (01) ==
LOC: LAB SHORT 10:47 → LAB 10:47
DX: M86.172 Other acute osteomyelitis, left ankle and foot (principal); L97.529 Non-pressure chronic ulcer of other part of left foot with unspecified severity; Z89.422 Acquired absence of other left toe(s)
CPT/HCPCS: 88305; 88311

== ENCOUNTER 2021-11-06 07:22 | Day surgery (SDC) | payer OTHER ==
[~2021-11-06] VITALS: Ht 177.8 cm; Wt 123.0 kg
--- NOTE | 2021-11-06 12:56 | NUR ---
PT VERBALIZED UNDERSTANDING OF WRITTEN AND VERBAL D/C INST. IV REMOVED. PT TAKEN OUT OF THE HRT CENTER VIA W/C.
== END 2021-11-06 13:00 | disposition home or self-care (01) ==
LOC: MHTC 07:22
DX: E11.621 Type 2 diabetes mellitus with foot ulcer (principal); L97.529 Non-pressure chronic ulcer of other part of left foot with unspecified severity; E11.51 Type 2 diabetes mellitus with diabetic peripheral angiopathy without gangrene; I70.213 Atherosclerosis of native arteries of extremities with intermittent claudication, bilateral legs; I10 Essential (primary) hypertension; E66.9 Obesity, unspecified; Z68.39 Body mass index [BMI] 39.0-39.9, adult; F17.210 Nicotine dependence, cigarettes, uncomplicated; K21.9 Gastro-esophageal reflux disease without esophagitis; Z86.73 Personal history of transient ischemic attack (TIA), and cerebral infarction without residual deficits; Z95.0 Presence of cardiac pacemaker; Z79.4 Long term (current) use of insulin; Z88.8 Allergy status to other drugs, medicaments and biological substances; Z89.422 Acquired absence of other left toe(s)
CPT/HCPCS: 37221; 37224; 37229; 37232; 75716; 75774; 76937; 82947; 99152; 99153; C1724; C1725; C1760; C1769; C1876; C1887; C1894; J1644; J2250; J2785; J3010; J7030; Q9967

== ENCOUNTER 2021-11-07 04:17 | Day surgery (SDC) | payer OTHER | END 2021-11-07 12:00 | disposition home or self-care (01) | LOC: WOUND | DX: Z48.89 Encounter for other specified surgical aftercare (principal); E11.69 Type 2 diabetes mellitus with other specified complication; M86.9 Osteomyelitis, unspecified; E11.52 Type 2 diabetes mellitus with diabetic peripheral angiopathy with gangrene; I96 Gangrene, not elsewhere classified; E11.621 Type 2 diabetes mellitus with foot ulcer; S91.2 Open wound of toe with damage to nail; X58.XXXS Exposure to other specified factors, sequela; E83.119 Hemochromatosis, unspecified; I25.2 Old myocardial infarction; Z87.891 Personal history of nicotine dependence | CPT/HCPCS: A9270; G0463 ==

== ENCOUNTER 2021-11-22 04:52 | Day surgery (SDC) | payer OTHER | END 2021-11-23 12:00 | disposition home or self-care (01) | LOC: WOUND 04:52 | DX: E11.621 Type 2 diabetes mellitus with foot ulcer (principal); L97.526 Non-pressure chronic ulcer of other part of left foot with bone involvement without evidence of necrosis; M86.9 Osteomyelitis, unspecified; E11.52 Type 2 diabetes mellitus with diabetic peripheral angiopathy with gangrene; I96 Gangrene, not elsewhere classified; S91.2 Open wound of toe with damage to nail; X58.XXXS Exposure to other specified factors, sequela; E11.40 Type 2 diabetes mellitus with diabetic neuropathy, unspecified; E83.119 Hemochromatosis, unspecified; E11.59 Type 2 diabetes mellitus with other circulatory complications; F17.210 Nicotine dependence, cigarettes, uncomplicated | CPT/HCPCS: A9270 ==

== ENCOUNTER 2021-11-29 01:44 | Day surgery (SDC) | payer OTHER | END 2021-11-29 22:36 | disposition home or self-care (01) | LOC: WOUND 01:44 | DX: Z48.89 Encounter for other specified surgical aftercare (principal); M86.9 Osteomyelitis, unspecified; I96 Gangrene, not elsewhere classified; E11.621 Type 2 diabetes mellitus with foot ulcer; S91.2 Open wound of toe with damage to nail; E11.59 Type 2 diabetes mellitus with other circulatory complications; E11.40 Type 2 diabetes mellitus with diabetic neuropathy, unspecified; E83.119 Hemochromatosis, unspecified | CPT/HCPCS: 87071; 87075; 87076; 87077; 87186; 87205; A9270 ==

== ENCOUNTER 2021-12-06 00:43 | Day surgery (SDC) | payer OTHER | END 2021-12-06 22:48 | disposition home or self-care (01) | LOC: WOUND 00:43 | DX: E11.621 Type 2 diabetes mellitus with foot ulcer (principal); L97.526 Non-pressure chronic ulcer of other part of left foot with bone involvement without evidence of necrosis; E11.69 Type 2 diabetes mellitus with other specified complication; M86.9 Osteomyelitis, unspecified; E11.52 Type 2 diabetes mellitus with diabetic peripheral angiopathy with gangrene; I96 Gangrene, not elsewhere classified; E83.119 Hemochromatosis, unspecified; E11.59 Type 2 diabetes mellitus with other circulatory complications; I50.9 Heart failure, unspecified; Z89.422 Acquired absence of other left toe(s) | CPT/HCPCS: A9270 ==

== ENCOUNTER → 2021-12-06 | Outpatient (CLI) | payer OTHER ==
[2021-12-07 11:24] LABS: Stool Occult Bld Immuno 1 Positive (NEGATIVE)
== END | disposition home or self-care (01) ==
LOC: LAB SHORT 17:53
PROVIDERS: Nurse Practitioner Family
DX: Z12.11 Encounter for screening for malignant neoplasm of colon (principal)
CPT/HCPCS: 82274

== ENCOUNTER 2021-12-13 01:26 | Day surgery (SDC) | payer OTHER | END 2021-12-13 23:03 | disposition home or self-care (01) | LOC: WOUND 01:26 | DX: E11.621 Type 2 diabetes mellitus with foot ulcer (principal); L97.524 Non-pressure chronic ulcer of other part of left foot with necrosis of bone; M86.9 Osteomyelitis, unspecified; E11.40 Type 2 diabetes mellitus with diabetic neuropathy, unspecified; E83.119 Hemochromatosis, unspecified; E11.59 Type 2 diabetes mellitus with other circulatory complications ==

== ENCOUNTER 2021-12-18 02:28 | Day surgery (SDC) | payer OTHER | END 2021-12-18 23:26 | disposition home or self-care (01) | LOC: HBO 02:28 | DX: E11.621 Type 2 diabetes mellitus with foot ulcer (principal); L97.529 Non-pressure chronic ulcer of other part of left foot with unspecified severity; E11.69 Type 2 diabetes mellitus with other specified complication; E11.52 Type 2 diabetes mellitus with diabetic peripheral angiopathy with gangrene; M86.9 Osteomyelitis, unspecified; I96 Gangrene, not elsewhere classified; E83.119 Hemochromatosis, unspecified; E11.59 Type 2 diabetes mellitus with other circulatory complications; Z89.422 Acquired absence of other left toe(s) | CPT/HCPCS: 82947; G0277 ==

== ENCOUNTER 2021-12-19 01:05 | Day surgery (SDC) | payer OTHER | END 2021-12-20 00:58 | disposition home or self-care (01) | LOC: HBO 01:05 | DX: E11.621 Type 2 diabetes mellitus with foot ulcer (principal); L97.529 Non-pressure chronic ulcer of other part of left foot with unspecified severity; Z48.89 Encounter for other specified surgical aftercare; M86.9 Osteomyelitis, unspecified; I96 Gangrene, not elsewhere classified; S91.2 Open wound of toe with damage to nail; E11.40 Type 2 diabetes mellitus with diabetic neuropathy, unspecified; E83.119 Hemochromatosis, unspecified; E11.59 Type 2 diabetes mellitus with other circulatory complications | CPT/HCPCS: 82947; G0277 ==

== ENCOUNTER 2021-12-20 03:07 | Day surgery (SDC) | payer OTHER | END 2021-12-21 02:19 | disposition home or self-care (01) | LOC: WOUND 03:07 | DX: E11.621 Type 2 diabetes mellitus with foot ulcer (principal); L97.526 Non-pressure chronic ulcer of other part of left foot with bone involvement without evidence of necrosis; M86.9 Osteomyelitis, unspecified; I96 Gangrene, not elsewhere classified; S91.2 Open wound of toe with damage to nail; E83.119 Hemochromatosis, unspecified; E11.59 Type 2 diabetes mellitus with other circulatory complications | CPT/HCPCS: A9270 ==

== ENCOUNTER 2021-12-20 03:14 | Day surgery (SDC) | payer OTHER | END 2021-12-21 02:19 | disposition home or self-care (01) | LOC: HBO 03:14 | DX: Z48.89 Encounter for other specified surgical aftercare (principal); E11.621 Type 2 diabetes mellitus with foot ulcer; L97.509 Non-pressure chronic ulcer of other part of unspecified foot with unspecified severity; E11.69 Type 2 diabetes mellitus with other specified complication; M86.9 Osteomyelitis, unspecified; E11.52 Type 2 diabetes mellitus with diabetic peripheral angiopathy with gangrene; I96 Gangrene, not elsewhere classified; E11.40 Type 2 diabetes mellitus with diabetic neuropathy, unspecified; E11.59 Type 2 diabetes mellitus with other circulatory complications; E83.119 Hemochromatosis, unspecified; S91.2 Open wound of toe with damage to nail | CPT/HCPCS: 82947; G0277 ==

== ENCOUNTER 2021-12-21 03:54 | Day surgery (SDC) | payer OTHER | END 2021-12-21 23:00 | disposition home or self-care (01) | LOC: HBO 03:54 | DX: E11.621 Type 2 diabetes mellitus with foot ulcer (principal); L97.509 Non-pressure chronic ulcer of other part of unspecified foot with unspecified severity; Z48.89 Encounter for other specified surgical aftercare; M86.9 Osteomyelitis, unspecified; I96 Gangrene, not elsewhere classified; S91.2 Open wound of toe with damage to nail; X58.XXXS Exposure to other specified factors, sequela; E11.40 Type 2 diabetes mellitus with diabetic neuropathy, unspecified; E83.119 Hemochromatosis, unspecified; E11.59 Type 2 diabetes mellitus with other circulatory complications | CPT/HCPCS: 82947; G0277 ==

== ENCOUNTER 2021-12-22 00:38 | Day surgery (SDC) | payer OTHER | END 2021-12-22 23:33 | disposition home or self-care (01) | LOC: HBO 00:38 | DX: E11.621 Type 2 diabetes mellitus with foot ulcer (principal); Z48.89 Encounter for other specified surgical aftercare; E11.69 Type 2 diabetes mellitus with other specified complication; M86.9 Osteomyelitis, unspecified; I96 Gangrene, not elsewhere classified; S91.2 Open wound of toe with damage to nail; E83.119 Hemochromatosis, unspecified; E11.59 Type 2 diabetes mellitus with other circulatory complications; X58.XXXS Exposure to other specified factors, sequela | CPT/HCPCS: 82947; G0277 ==

== ENCOUNTER 2021-12-25 03:03 | Day surgery (SDC) | payer OTHER | END 2021-12-25 23:24 | disposition home or self-care (01) | LOC: HBO 03:03 | DX: E11.621 Type 2 diabetes mellitus with foot ulcer (principal); L97.529 Non-pressure chronic ulcer of other part of left foot with unspecified severity; E11.69 Type 2 diabetes mellitus with other specified complication; M86.9 Osteomyelitis, unspecified; E11.52 Type 2 diabetes mellitus with diabetic peripheral angiopathy with gangrene; I96 Gangrene, not elsewhere classified; E11.59 Type 2 diabetes mellitus with other circulatory complications; E83.119 Hemochromatosis, unspecified; Z89.422 Acquired absence of other left toe(s) | CPT/HCPCS: 82947; G0277 ==

== ENCOUNTER 2021-12-26 05:13 | Day surgery (SDC) | payer OTHER | END 2021-12-26 22:37 | disposition home or self-care (01) | LOC: HBO 05:13 | DX: E11.621 Type 2 diabetes mellitus with foot ulcer (principal); L97.529 Non-pressure chronic ulcer of other part of left foot with unspecified severity; T87.89 Other complications of amputation stump; M86.9 Osteomyelitis, unspecified; I96 Gangrene, not elsewhere classified; S91.2 Open wound of toe with damage to nail; E11.40 Type 2 diabetes mellitus with diabetic neuropathy, unspecified; E83.119 Hemochromatosis, unspecified; E11.59 Type 2 diabetes mellitus with other circulatory complications | CPT/HCPCS: 82947; G0277 ==

== ENCOUNTER 2021-12-27 00:36 | Day surgery (SDC) | payer OTHER | END 2021-12-27 23:31 | disposition home or self-care (01) | LOC: HBO 00:36 | DX: Z48.89 Encounter for other specified surgical aftercare (principal); E11.621 Type 2 diabetes mellitus with foot ulcer; L97.509 Non-pressure chronic ulcer of other part of unspecified foot with unspecified severity; E11.69 Type 2 diabetes mellitus with other specified complication; M86.9 Osteomyelitis, unspecified; E11.52 Type 2 diabetes mellitus with diabetic peripheral angiopathy with gangrene; I96 Gangrene, not elsewhere classified; E11.40 Type 2 diabetes mellitus with diabetic neuropathy, unspecified; E11.59 Type 2 diabetes mellitus with other circulatory complications; E83.119 Hemochromatosis, unspecified; S91.2 Open wound of toe with damage to nail | CPT/HCPCS: 82947; G0277 ==

== ENCOUNTER 2021-12-27 00:44 | Day surgery (SDC) | payer OTHER | END 2021-12-27 23:31 | disposition home or self-care (01) | LOC: WOUND 00:44 | DX: E11.621 Type 2 diabetes mellitus with foot ulcer (principal); L97.525 Non-pressure chronic ulcer of other part of left foot with muscle involvement without evidence of necrosis; E11.69 Type 2 diabetes mellitus with other specified complication; M86.9 Osteomyelitis, unspecified; E11.40 Type 2 diabetes mellitus with diabetic neuropathy, unspecified; E83.119 Hemochromatosis, unspecified; I96 Gangrene, not elsewhere classified; S91.2 Open wound of toe with damage to nail | CPT/HCPCS: A9270 ==

== ENCOUNTER 2021-12-28 03:48 | Day surgery (SDC) | payer OTHER | END 2021-12-28 22:58 | disposition home or self-care (01) | LOC: HBO 03:48 | DX: E11.621 Type 2 diabetes mellitus with foot ulcer (principal); L97.509 Non-pressure chronic ulcer of other part of unspecified foot with unspecified severity; M86.9 Osteomyelitis, unspecified; I96 Gangrene, not elsewhere classified; S91.2 Open wound of toe with damage to nail; E11.40 Type 2 diabetes mellitus with diabetic neuropathy, unspecified; E83.119 Hemochromatosis, unspecified; E11.59 Type 2 diabetes mellitus with other circulatory complications; Z48.89 Encounter for other specified surgical aftercare | CPT/HCPCS: 82947; G0277 ==

== ENCOUNTER 2021-12-29 02:01 | Day surgery (SDC) | payer OTHER | END 2021-12-29 12:00 | disposition home or self-care (01) | LOC: HBO 02:01 | DX: E11.621 Type 2 diabetes mellitus with foot ulcer (principal); L97.529 Non-pressure chronic ulcer of other part of left foot with unspecified severity; E11.69 Type 2 diabetes mellitus with other specified complication; M86.9 Osteomyelitis, unspecified; E11.52 Type 2 diabetes mellitus with diabetic peripheral angiopathy with gangrene; I96 Gangrene, not elsewhere classified; E83.119 Hemochromatosis, unspecified; E11.59 Type 2 diabetes mellitus with other circulatory complications; Z89.422 Acquired absence of other left toe(s) | CPT/HCPCS: 82947; G0277 ==

== ENCOUNTER 2022-01-01 01:56 | Day surgery (SDC) | payer OTHER | END 2022-01-01 23:14 | disposition home or self-care (01) | LOC: HBO 01:56 | DX: E11.621 Type 2 diabetes mellitus with foot ulcer (principal); S91.2 Open wound of toe with damage to nail; E11.69 Type 2 diabetes mellitus with other specified complication; M86.9 Osteomyelitis, unspecified; I96 Gangrene, not elsewhere classified; E11.40 Type 2 diabetes mellitus with diabetic neuropathy, unspecified; E83.119 Hemochromatosis, unspecified; E11.59 Type 2 diabetes mellitus with other circulatory complications; Z48.89 Encounter for other specified surgical aftercare | CPT/HCPCS: 82947; G0277 ==

== ENCOUNTER 2022-01-02 04:06 | Day surgery (SDC) | payer OTHER | END 2022-01-02 22:36 | disposition home or self-care (01) | LOC: HBO 04:06 | DX: E11.621 Type 2 diabetes mellitus with foot ulcer (principal); L97.529 Non-pressure chronic ulcer of other part of left foot with unspecified severity; E11.69 Type 2 diabetes mellitus with other specified complication; M86.9 Osteomyelitis, unspecified; E11.52 Type 2 diabetes mellitus with diabetic peripheral angiopathy with gangrene; E11.59 Type 2 diabetes mellitus with other circulatory complications; I96 Gangrene, not elsewhere classified; E83.119 Hemochromatosis, unspecified; Z89.422 Acquired absence of other left toe(s) | CPT/HCPCS: 82947; G0277 ==

== ENCOUNTER 2022-01-03 00:05 | Day surgery (SDC) | payer OTHER | END 2022-01-03 23:18 | disposition home or self-care (01) | LOC: HBO 00:05 | DX: E11.621 Type 2 diabetes mellitus with foot ulcer (principal); L97.509 Non-pressure chronic ulcer of other part of unspecified foot with unspecified severity; E11.52 Type 2 diabetes mellitus with diabetic peripheral angiopathy with gangrene; I96 Gangrene, not elsewhere classified; E11.69 Type 2 diabetes mellitus with other specified complication; M86.9 Osteomyelitis, unspecified; E11.40 Type 2 diabetes mellitus with diabetic neuropathy, unspecified; E11.59 Type 2 diabetes mellitus with other circulatory complications; S91.2 Open wound of toe with damage to nail; E83.119 Hemochromatosis, unspecified | CPT/HCPCS: 82947; G0277 ==

== ENCOUNTER 2022-01-03 00:11 | Day surgery (SDC) | payer OTHER | END 2022-01-03 23:18 | disposition home or self-care (01) | LOC: WOUND 00:11 | DX: E11.621 Type 2 diabetes mellitus with foot ulcer (principal); L97.525 Non-pressure chronic ulcer of other part of left foot with muscle involvement without evidence of necrosis; E11.52 Type 2 diabetes mellitus with diabetic peripheral angiopathy with gangrene; I96 Gangrene, not elsewhere classified; E11.69 Type 2 diabetes mellitus with other specified complication; M86.9 Osteomyelitis, unspecified; E11.40 Type 2 diabetes mellitus with diabetic neuropathy, unspecified; E11.59 Type 2 diabetes mellitus with other circulatory complications; S91.2 Open wound of toe with damage to nail; E83.119 Hemochromatosis, unspecified; Z89.422 Acquired absence of other left toe(s) | CPT/HCPCS: A9270 ==

== ENCOUNTER 2022-01-04 02:10 | Day surgery (SDC) | payer OTHER | END 2022-01-04 22:56 | disposition home or self-care (01) | LOC: HBO 02:10 | DX: E11.621 Type 2 diabetes mellitus with foot ulcer (principal); S91.2 Open wound of toe with damage to nail; Z48.89 Encounter for other specified surgical aftercare; E11.69 Type 2 diabetes mellitus with other specified complication; M86.9 Osteomyelitis, unspecified; I96 Gangrene, not elsewhere classified; E11.40 Type 2 diabetes mellitus with diabetic neuropathy, unspecified; E11.59 Type 2 diabetes mellitus with other circulatory complications; E83.119 Hemochromatosis, unspecified | CPT/HCPCS: 82947; G0277 ==

== ENCOUNTER 2022-01-05 02:55 | Day surgery (SDC) | payer OTHER | END 2022-01-05 22:59 | disposition home or self-care (01) | LOC: HBO 02:55 | DX: E11.621 Type 2 diabetes mellitus with foot ulcer (principal); E11.52 Type 2 diabetes mellitus with diabetic peripheral angiopathy with gangrene; I96 Gangrene, not elsewhere classified; E11.40 Type 2 diabetes mellitus with diabetic neuropathy, unspecified; L97.529 Non-pressure chronic ulcer of other part of left foot with unspecified severity; E11.69 Type 2 diabetes mellitus with other specified complication; M86.9 Osteomyelitis, unspecified; E11.59 Type 2 diabetes mellitus with other circulatory complications; E83.119 Hemochromatosis, unspecified; Z89.422 Acquired absence of other left toe(s) | CPT/HCPCS: 82947; G0277 ==

== ENCOUNTER 2022-01-08 01:26 | Day surgery (SDC) | payer OTHER | END 2022-01-08 23:21 | disposition home or self-care (01) | LOC: HBO 01:26 | DX: E11.621 Type 2 diabetes mellitus with foot ulcer (principal); L97.529 Non-pressure chronic ulcer of other part of left foot with unspecified severity; E11.69 Type 2 diabetes mellitus with other specified complication; M86.9 Osteomyelitis, unspecified; E11.59 Type 2 diabetes mellitus with other circulatory complications; E11.52 Type 2 diabetes mellitus with diabetic peripheral angiopathy with gangrene; I96 Gangrene, not elsewhere classified; E83.119 Hemochromatosis, unspecified | CPT/HCPCS: 82947; G0277 ==

== ENCOUNTER 2022-01-09 03:54 | Day surgery (SDC) | payer OTHER | END 2022-01-09 22:41 | disposition home or self-care (01) | LOC: HBO 03:54 | DX: E11.621 Type 2 diabetes mellitus with foot ulcer (principal); E11.69 Type 2 diabetes mellitus with other specified complication; M86.9 Osteomyelitis, unspecified; I96 Gangrene, not elsewhere classified; S91.2 Open wound of toe with damage to nail; E11.40 Type 2 diabetes mellitus with diabetic neuropathy, unspecified; E11.59 Type 2 diabetes mellitus with other circulatory complications; E83.119 Hemochromatosis, unspecified; Z48.89 Encounter for other specified surgical aftercare | CPT/HCPCS: 82947; G0277 ==

== ENCOUNTER 2022-01-10 00:15 | Day surgery (SDC) | payer OTHER | END 2022-01-10 22:45 | disposition home or self-care (01) | LOC: HBO 00:15 | DX: E11.621 Type 2 diabetes mellitus with foot ulcer (principal); L97.528 Non-pressure chronic ulcer of other part of left foot with other specified severity; E11.69 Type 2 diabetes mellitus with other specified complication; M86.9 Osteomyelitis, unspecified; E11.52 Type 2 diabetes mellitus with diabetic peripheral angiopathy with gangrene; I96 Gangrene, not elsewhere classified; E11.40 Type 2 diabetes mellitus with diabetic neuropathy, unspecified; S91.2 Open wound of toe with damage to nail; E83.119 Hemochromatosis, unspecified; E11.59 Type 2 diabetes mellitus with other circulatory complications | CPT/HCPCS: 82947; G0277 ==

== ENCOUNTER 2022-01-10 00:23 | Day surgery (SDC) | payer OTHER | END 2022-01-10 22:45 | disposition home or self-care (01) | LOC: WOUND 00:23 | DX: E11.621 Type 2 diabetes mellitus with foot ulcer (principal); L97.525 Non-pressure chronic ulcer of other part of left foot with muscle involvement without evidence of necrosis; E11.40 Type 2 diabetes mellitus with diabetic neuropathy, unspecified; E83.119 Hemochromatosis, unspecified; E11.69 Type 2 diabetes mellitus with other specified complication; M86.9 Osteomyelitis, unspecified | CPT/HCPCS: A9270 ==

== ENCOUNTER 2022-01-11 00:08 | Day surgery (SDC) | payer OTHER | END 2022-01-11 22:39 | disposition home or self-care (01) | LOC: HBO 00:08 | DX: M86.9 Osteomyelitis, unspecified (principal); E11.621 Type 2 diabetes mellitus with foot ulcer; Z48.89 Encounter for other specified surgical aftercare; I96 Gangrene, not elsewhere classified; S91.2 Open wound of toe with damage to nail; X58.XXXS Exposure to other specified factors, sequela; E11.40 Type 2 diabetes mellitus with diabetic neuropathy, unspecified; E83.119 Hemochromatosis, unspecified; E11.59 Type 2 diabetes mellitus with other circulatory complications | CPT/HCPCS: 82947; G0277 ==

== ENCOUNTER 2022-01-12 00:36 | Day surgery (SDC) | payer OTHER | END 2022-01-12 23:54 | disposition home or self-care (01) | LOC: HBO 00:36 | DX: E11.621 Type 2 diabetes mellitus with foot ulcer (principal); L97.529 Non-pressure chronic ulcer of other part of left foot with unspecified severity; E11.69 Type 2 diabetes mellitus with other specified complication; M86.9 Osteomyelitis, unspecified; E11.52 Type 2 diabetes mellitus with diabetic peripheral angiopathy with gangrene; I96 Gangrene, not elsewhere classified; E83.119 Hemochromatosis, unspecified; E11.59 Type 2 diabetes mellitus with other circulatory complications; Z89.422 Acquired absence of other left toe(s) | CPT/HCPCS: 82947; G0277 ==

== ENCOUNTER 2022-01-15 02:54 | Day surgery (SDC) | payer OTHER | END 2022-01-15 23:28 | disposition home or self-care (01) | LOC: HBO 02:54 | DX: Z48.89 Encounter for other specified surgical aftercare (principal); E11.621 Type 2 diabetes mellitus with foot ulcer; E11.69 Type 2 diabetes mellitus with other specified complication; M86.9 Osteomyelitis, unspecified; I96 Gangrene, not elsewhere classified; S91.2 Open wound of toe with damage to nail; E11.40 Type 2 diabetes mellitus with diabetic neuropathy, unspecified; E83.119 Hemochromatosis, unspecified; E11.59 Type 2 diabetes mellitus with other circulatory complications | CPT/HCPCS: 82947; G0277 ==

== ENCOUNTER 2022-01-17 01:46 | Day surgery (SDC) | payer OTHER | END 2022-01-17 23:16 | disposition home or self-care (01) | LOC: HBO 01:46 | DX: E11.621 Type 2 diabetes mellitus with foot ulcer (principal); L97.529 Non-pressure chronic ulcer of other part of left foot with unspecified severity; E11.69 Type 2 diabetes mellitus with other specified complication; M86.9 Osteomyelitis, unspecified; E11.52 Type 2 diabetes mellitus with diabetic peripheral angiopathy with gangrene; I96 Gangrene, not elsewhere classified; S91.2 Open wound of toe with damage to nail; E11.40 Type 2 diabetes mellitus with diabetic neuropathy, unspecified; E83.119 Hemochromatosis, unspecified; E11.59 Type 2 diabetes mellitus with other circulatory complications | CPT/HCPCS: 82947; G0277 ==

== ENCOUNTER 2022-01-17 01:52 | Day surgery (SDC) | payer OTHER | END 2022-01-17 23:16 | disposition home or self-care (01) | LOC: WOUND 01:52 | DX: E11.621 Type 2 diabetes mellitus with foot ulcer (principal); L97.525 Non-pressure chronic ulcer of other part of left foot with muscle involvement without evidence of necrosis; S91.2 Open wound of toe with damage to nail; E11.69 Type 2 diabetes mellitus with other specified complication; M86.9 Osteomyelitis, unspecified; I96 Gangrene, not elsewhere classified; Z48.89 Encounter for other specified surgical aftercare | CPT/HCPCS: A9270 ==

== ENCOUNTER 2022-01-18 00:20 | Day surgery (SDC) | payer OTHER | END 2022-01-18 23:34 | disposition home or self-care (01) | LOC: HBO 00:20 | DX: E11.621 Type 2 diabetes mellitus with foot ulcer (principal); L97.509 Non-pressure chronic ulcer of other part of unspecified foot with unspecified severity; M86.9 Osteomyelitis, unspecified; E11.52 Type 2 diabetes mellitus with diabetic peripheral angiopathy with gangrene; I96 Gangrene, not elsewhere classified; S91.2 Open wound of toe with damage to nail; X58.XXXS Exposure to other specified factors, sequela; E11.40 Type 2 diabetes mellitus with diabetic neuropathy, unspecified; E83.119 Hemochromatosis, unspecified; E11.59 Type 2 diabetes mellitus with other circulatory complications | CPT/HCPCS: 82947; G0277 ==

== ENCOUNTER 2022-01-19 00:55 | Day surgery (SDC) | payer OTHER | END 2022-01-19 22:50 | disposition home or self-care (01) | LOC: HBO 00:55 | DX: E11.621 Type 2 diabetes mellitus with foot ulcer (principal); Z48.89 Encounter for other specified surgical aftercare; M86.9 Osteomyelitis, unspecified; I96 Gangrene, not elsewhere classified; S91.2 Open wound of toe with damage to nail; E83.119 Hemochromatosis, unspecified; E11.59 Type 2 diabetes mellitus with other circulatory complications; E11.69 Type 2 diabetes mellitus with other specified complication | CPT/HCPCS: 82947; G0277 ==

== ENCOUNTER 2022-01-22 05:47 | Day surgery (SDC) | payer OTHER | END 2022-01-22 23:26 | disposition home or self-care (01) | LOC: HBO 05:47 | DX: E11.621 Type 2 diabetes mellitus with foot ulcer (principal); S91.2 Open wound of toe with damage to nail; E11.69 Type 2 diabetes mellitus with other specified complication; M86.9 Osteomyelitis, unspecified; E11.40 Type 2 diabetes mellitus with diabetic neuropathy, unspecified; E11.59 Type 2 diabetes mellitus with other circulatory complications; I96 Gangrene, not elsewhere classified; E83.119 Hemochromatosis, unspecified; Z48.89 Encounter for other specified surgical aftercare | CPT/HCPCS: 82947; G0277 ==

== ENCOUNTER 2022-01-23 05:55 | Day surgery (SDC) | payer OTHER | END 2022-01-23 23:53 | disposition home or self-care (01) | LOC: HBO 05:55 | DX: E11.621 Type 2 diabetes mellitus with foot ulcer (principal); Z48.89 Encounter for other specified surgical aftercare; E11.69 Type 2 diabetes mellitus with other specified complication; M86.9 Osteomyelitis, unspecified; I96 Gangrene, not elsewhere classified; S91.2 Open wound of toe with damage to nail; E83.119 Hemochromatosis, unspecified; E11.59 Type 2 diabetes mellitus with other circulatory complications | CPT/HCPCS: 82947; G0277 ==

== ENCOUNTER 2022-01-24 03:20 | Day surgery (SDC) | payer OTHER | END 2022-01-24 22:56 | disposition home or self-care (01) | LOC: HBO 03:20 | DX: E11.621 Type 2 diabetes mellitus with foot ulcer (principal); E11.69 Type 2 diabetes mellitus with other specified complication; M86.9 Osteomyelitis, unspecified; I96 Gangrene, not elsewhere classified; S91.2 Open wound of toe with damage to nail; E11.40 Type 2 diabetes mellitus with diabetic neuropathy, unspecified; E83.119 Hemochromatosis, unspecified; E11.59 Type 2 diabetes mellitus with other circulatory complications; Z48.89 Encounter for other specified surgical aftercare | CPT/HCPCS: 82947; G0277 ==

== ENCOUNTER 2022-01-24 03:32 | Day surgery (SDC) | payer OTHER | END 2022-01-24 22:56 | disposition home or self-care (01) | LOC: WOUND 03:32 | DX: E11.621 Type 2 diabetes mellitus with foot ulcer (principal); L97.525 Non-pressure chronic ulcer of other part of left foot with muscle involvement without evidence of necrosis; Z48.89 Encounter for other specified surgical aftercare; E11.69 Type 2 diabetes mellitus with other specified complication; M86.9 Osteomyelitis, unspecified; I96 Gangrene, not elsewhere classified; S91.2 Open wound of toe with damage to nail; E83.119 Hemochromatosis, unspecified; E11.59 Type 2 diabetes mellitus with other circulatory complications | CPT/HCPCS: A9270 ==

== ENCOUNTER 2022-01-25 00:24 | Day surgery (SDC) | payer OTHER | END 2022-01-25 23:06 | disposition home or self-care (01) | LOC: HBO 00:24 | DX: E11.621 Type 2 diabetes mellitus with foot ulcer (principal); L97.509 Non-pressure chronic ulcer of other part of unspecified foot with unspecified severity; M86.9 Osteomyelitis, unspecified; E11.52 Type 2 diabetes mellitus with diabetic peripheral angiopathy with gangrene; E11.69 Type 2 diabetes mellitus with other specified complication; I96 Gangrene, not elsewhere classified; S91.2 Open wound of toe with damage to nail; E11.40 Type 2 diabetes mellitus with diabetic neuropathy, unspecified; E83.119 Hemochromatosis, unspecified; E11.59 Type 2 diabetes mellitus with other circulatory complications; Z48.89 Encounter for other specified surgical aftercare | CPT/HCPCS: 82947; G0277 ==

== ENCOUNTER 2022-01-30 04:54 | Day surgery (SDC) | payer OTHER | END 2022-01-30 23:50 | disposition home or self-care (01) | LOC: HBO 04:54 | DX: E11.621 Type 2 diabetes mellitus with foot ulcer (principal); L97.529 Non-pressure chronic ulcer of other part of left foot with unspecified severity; E11.69 Type 2 diabetes mellitus with other specified complication; M86.9 Osteomyelitis, unspecified; E11.52 Type 2 diabetes mellitus with diabetic peripheral angiopathy with gangrene; I96 Gangrene, not elsewhere classified; S91.2 Open wound of toe with damage to nail; E11.40 Type 2 diabetes mellitus with diabetic neuropathy, unspecified; E83.119 Hemochromatosis, unspecified; E11.59 Type 2 diabetes mellitus with other circulatory complications; Z48.89 Encounter for other specified surgical aftercare | CPT/HCPCS: 82947; G0277 ==

== ENCOUNTER 2022-01-31 00:59 | Day surgery (SDC) | payer OTHER | END 2022-01-31 23:05 | disposition home or self-care (01) | LOC: HBO 00:59 | DX: E11.621 Type 2 diabetes mellitus with foot ulcer (principal); L97.529 Non-pressure chronic ulcer of other part of left foot with unspecified severity; E11.69 Type 2 diabetes mellitus with other specified complication; M86.9 Osteomyelitis, unspecified; E11.52 Type 2 diabetes mellitus with diabetic peripheral angiopathy with gangrene; I96 Gangrene, not elsewhere classified; E11.59 Type 2 diabetes mellitus with other circulatory complications; E83.119 Hemochromatosis, unspecified; Z89.422 Acquired absence of other left toe(s); L97.525 Non-pressure chronic ulcer of other part of left foot with muscle involvement without evidence of necrosis; E11.40 Type 2 diabetes mellitus with diabetic neuropathy, unspecified | CPT/HCPCS: 82947; A9270; G0277 ==

== ENCOUNTER 2022-02-01 01:18 | Day surgery (SDC) | payer OTHER | END 2022-02-01 23:29 | disposition home or self-care (01) | LOC: HBO 01:18 | DX: Z48.89 Encounter for other specified surgical aftercare (principal); E11.621 Type 2 diabetes mellitus with foot ulcer; E11.69 Type 2 diabetes mellitus with other specified complication; M86.9 Osteomyelitis, unspecified; I96 Gangrene, not elsewhere classified; S91.2 Open wound of toe with damage to nail; E11.40 Type 2 diabetes mellitus with diabetic neuropathy, unspecified; E83.119 Hemochromatosis, unspecified; E11.59 Type 2 diabetes mellitus with other circulatory complications | CPT/HCPCS: 82947; G0277 ==

== ENCOUNTER 2022-02-02 02:26 | Day surgery (SDC) | payer OTHER | END 2022-02-02 23:16 | disposition home or self-care (01) | LOC: HBO 02:26 | DX: E11.621 Type 2 diabetes mellitus with foot ulcer (principal); L97.529 Non-pressure chronic ulcer of other part of left foot with unspecified severity; E11.69 Type 2 diabetes mellitus with other specified complication; M86.9 Osteomyelitis, unspecified; E11.52 Type 2 diabetes mellitus with diabetic peripheral angiopathy with gangrene; I96 Gangrene, not elsewhere classified; E11.40 Type 2 diabetes mellitus with diabetic neuropathy, unspecified; E11.59 Type 2 diabetes mellitus with other circulatory complications; S91.2 Open wound of toe with damage to nail; E83.119 Hemochromatosis, unspecified | CPT/HCPCS: 82947; G0277 ==

== ENCOUNTER 2022-02-05 01:13 | Day surgery (SDC) | payer OTHER | END 2022-02-05 23:29 | disposition home or self-care (01) | LOC: HBO 01:13 | DX: E11.621 Type 2 diabetes mellitus with foot ulcer (principal); L97.529 Non-pressure chronic ulcer of other part of left foot with unspecified severity; E11.69 Type 2 diabetes mellitus with other specified complication; M86.9 Osteomyelitis, unspecified; E11.52 Type 2 diabetes mellitus with diabetic peripheral angiopathy with gangrene; I96 Gangrene, not elsewhere classified; E11.40 Type 2 diabetes mellitus with diabetic neuropathy, unspecified; E11.59 Type 2 diabetes mellitus with other circulatory complications; Z89.422 Acquired absence of other left toe(s) | CPT/HCPCS: 82947; G0277 ==

== ENCOUNTER 2022-02-06 01:58 | Day surgery (SDC) | payer OTHER | END 2022-02-06 23:15 | disposition home or self-care (01) | LOC: HBO 01:58 | DX: E11.621 Type 2 diabetes mellitus with foot ulcer (principal); L97.529 Non-pressure chronic ulcer of other part of left foot with unspecified severity; E11.69 Type 2 diabetes mellitus with other specified complication; M86.9 Osteomyelitis, unspecified; E11.52 Type 2 diabetes mellitus with diabetic peripheral angiopathy with gangrene; I96 Gangrene, not elsewhere classified; S91.2 Open wound of toe with damage to nail; E11.40 Type 2 diabetes mellitus with diabetic neuropathy, unspecified; E83.119 Hemochromatosis, unspecified; E11.59 Type 2 diabetes mellitus with other circulatory complications; Z48.89 Encounter for other specified surgical aftercare | CPT/HCPCS: 82947; G0277 ==

== ENCOUNTER 2022-02-12 01:59 | Day surgery (SDC) | payer OTHER | END 2022-02-12 23:13 | disposition home or self-care (01) | LOC: HBO 01:59 | DX: E11.621 Type 2 diabetes mellitus with foot ulcer (principal); E11.69 Type 2 diabetes mellitus with other specified complication; M86.9 Osteomyelitis, unspecified; I96 Gangrene, not elsewhere classified; S91.2 Open wound of toe with damage to nail; E11.40 Type 2 diabetes mellitus with diabetic neuropathy, unspecified; E83.119 Hemochromatosis, unspecified; E11.59 Type 2 diabetes mellitus with other circulatory complications; Z48.89 Encounter for other specified surgical aftercare | CPT/HCPCS: 82947; G0277 ==

== ENCOUNTER 2022-02-13 02:21 | Day surgery (SDC) | payer OTHER | END 2022-02-13 22:52 | disposition home or self-care (01) | LOC: HBO 02:21 → WOUND 02:21 → HBO 11:08 → WOUND 22:52 | DX: E11.621 Type 2 diabetes mellitus with foot ulcer (principal); L97.526 Non-pressure chronic ulcer of other part of left foot with bone involvement without evidence of necrosis; Z48.89 Encounter for other specified surgical aftercare; E11.69 Type 2 diabetes mellitus with other specified complication; M86.9 Osteomyelitis, unspecified; I96 Gangrene, not elsewhere classified; S91.2 Open wound of toe with damage to nail; E11.40 Type 2 diabetes mellitus with diabetic neuropathy, unspecified; E83.119 Hemochromatosis, unspecified; E11.59 Type 2 diabetes mellitus with other circulatory complications; I70.203 Unspecified atherosclerosis of native arteries of extremities, bilateral legs; L03.116 Cellulitis of left lower limb | CPT/HCPCS: A9270; G0463 ==

== ENCOUNTER 2022-02-16 13:15 | Inpatient (IN) | payer OTHER, MEDICARE ==
[~2022-02-16] VITALS: Ht 177.8 cm; Wt 119.8 kg
[2022-02-16 13:55] LABS: BASOPHILS ABSOLUTE AUTO 0.05 K/mm3 (0.00-0.23); BASOPHILS PERCENT AUTO 1 % (0-2); EOSINOPHILS ABSOLUTE AUTO 0.07 K/mm3 (0.00-0.68); EOSINOPHILS PERCENT AUTO 2 % (0-6); Hematocrit 32.6 % (37.0-53.0); IMMATURE GRAN ABSOLUTE AUTO 0.05 K/mm3 (0.00-0.10); IMMATURE GRAN PERCENT AUTO 1 % (0-1); LYMPHOCYTES ABSOLUTE AUTO 1.46 K/mm3 (0.84-5.20); LYMPHOCYTES PERCENT AUTO 31 % (21-46); MONOCYTES ABSOLUTE AUTO 0.27 K/mm3 (0.16-1.47); MONOCYTES PERCENT AUTO 6 % (4-13); Mean Corpuscular HGB 40.1 pg (26.0-34.0); Mean Corpuscular HGB Conc 33.7 g/dL (31.5-36.5); Mean Corpuscular Volume 119 fL (80-100); Mean Platelet Volume 10.1 fL (9.1-12.4); NEUTROPHILS ABSOLUTE AUTO 2.75 K/mm3 (1.96-9.15); NEUTROPHILS PERCENT AUTO 59 % (41-73); NRBC ABSOLUTE 0.02 K/mm3 (0.00-0.02); NRBC Auto 0.4 /100 WBC (0.0-0.2); Platelet Count 211 K/mm3 (150-400); RDW Standard Deviation 97.5 fL (35.1-46.3); Red Blood Cell Count 2.74 M/mm3 (4.30-5.90); White Blood Cell Count 4.65 K/mm3 (4.00-11.30)
[2022-02-16 14:15] LABS: Alanine Aminotransfer (ALT/SGP 16 U/L (12-78); Albumin, Blood 3.1 g/dL (3.4-5.0); Albumin/Globulin Ratio 0.7 (0.8-1.8); Alk Phos 86 U/L (50-136); Anion Gap 3 mmol/L (6-16); Aspartate Aminotrans (AST/SGOT 22 U/L (12-37); Bilirubin, Total 0.2 mg/dL (0.1-1.0); Blood Urea Nitrogen 23 mg/dL (8-24); Bun/Creatinine Ratio 20.7 (12.0-20.0); CO2, Blood 25 mmol/L (21-32); Calcium, Blood 8.9 mg/dL (8.5-10.1); Chloride, Blood 113 mmol/L (98-108); Creatinine, Blood 1.11 mg/dL (0.60-1.20); Globulin, Blood 4.7 g/dL (2.2-4.0); Glomerular Filtration Rate >60 (60-); Glucose, Blood 113 mg/dL (70-99); Potassium, Blood 4.8 mmol/L (3.5-5.5); Sodium, Blood 141 mmol/L (136-145); Total Protein, Blood 7.8 g/dL (6.4-8.2)
[2022-02-16] MEDS ORDERED: VICTOZA 2-0.6 MG/0.1 SC (15:19)
[2022-02-16] MEDS ORDERED: GABA300 PO (15:19)
[2022-02-16] MEDS ORDERED: NEURONTIN300 MG (20:05)
--- NOTE | 2022-02-16 20:38 | NUR ---
PHONE CALL TO DR. FIGUEROA: RN NOTIFIED DR. FIGUEROA OF HOME MEDS FOR PAIN, ROTIGOTINE PATCH TRANSDERMAL 6MG/24HR NOT VERIFIED ON CLAIM HISTORY BUT PT HAD PATCH UPON RN'S ASSESSMENT, OXYCODONE 10-325 MG TAB Q4 HR VERIFIED PRESCRIBED BY DR. BARRON ON CLAIM HISTORY. ALSO REQUESTING IV PAIN MEDICATION BECAUSE PT IS RATING PAIN "UNBEARABLE". DR. FIGUEROA WITH ORDERS TO CONTINUE HOME MEDICATIONS, AND ALSO TO ADD FENTANYL 25-50 MCG PER IV Q4HR PRN. ORDER READ BACK. WILL UPDATE ORDERS IN EHR.
[2022-02-17 04:27] LABS: BASOPHILS ABSOLUTE AUTO 0.04 K/mm3 (0.00-0.23); BASOPHILS PERCENT AUTO 1 % (0-2); EOSINOPHILS ABSOLUTE AUTO 0.06 K/mm3 (0.00-0.68); EOSINOPHILS PERCENT AUTO 1 % (0-6); Hematocrit 29.2 % (37.0-53.0); Hemoglobin 9.8 g/dL (13.5-17.5); IMMATURE GRAN ABSOLUTE AUTO 0.09 K/mm3 (0.00-0.10); IMMATURE GRAN PERCENT AUTO 2 % (0-1); LYMPHOCYTES ABSOLUTE AUTO 1.44 K/mm3 (0.84-5.20); LYMPHOCYTES PERCENT AUTO 28 % (21-46); MONOCYTES PERCENT AUTO 6 % (4-13); Mean Corpuscular HGB 39.5 pg (26.0-34.0); Mean Corpuscular HGB Conc 33.6 g/dL (31.5-36.5); Mean Corpuscular Volume 118 fL (80-100); NEUTROPHILS ABSOLUTE AUTO 3.28 K/mm3 (1.96-9.15); NEUTROPHILS PERCENT AUTO 63 % (41-73); Platelet Count 153 K/mm3 (150-400); RDW Coefficient Variation 22.5 % (11.7-14.2); RDW Standard Deviation 94.2 fL (35.1-46.3); Red Blood Cell Count 2.48 M/mm3 (4.30-5.90); White Blood Cell Count 5.21 K/mm3 (4.00-11.30)
[2022-02-17 04:42] LABS: International Normalized Ratio 3.29
[2022-02-17 04:50] LABS: Albumin, Blood 2.6 g/dL (3.4-5.0); Anion Gap 5 mmol/L (6-16); Blood Urea Nitrogen 21 mg/dL (8-24); Bun/Creatinine Ratio 19.4 (12.0-20.0); CO2, Blood 25 mmol/L (21-32); Calcium, Blood 8.2 mg/dL (8.5-10.1); Chloride, Blood 110 mmol/L (98-108); Creatinine, Blood 1.08 mg/dL (0.60-1.20); Glomerular Filtration Rate >60 (60-); Glucose, Blood 152 mg/dL (70-99); Magnesium, Blood 1.9 mg/dL (1.6-2.4); Phosphorus, Blood 2.6 mg/dL (2.5-4.9); Potassium, Blood 4.3 mmol/L (3.5-5.5); Sodium, Blood 140 mmol/L (136-145)
--- NOTE | 2022-02-17 07:45 | NUR ---
SHIFT SUMMARY GENE WAS PAINFUL AT THE BEGINNING OF SHIFT, VERY RESTLESS AND NOT TOLERATING PAIN WELL. EVENTUALLY, AROUND 0100, PT WAS ABLE TO FALL ASLEEP. HE SLEPT WITH HIS CPAP ON. PRN PAIN MEDICATION PROVIDED SOME RELIEF, HE WAS ABLE TO SLEEP FOR SEVERAL HOURS. HE IS VOIDING USING A URINAL, AND AMBULATING WITH GAITBELT, FWW, AND SBA TO BATHROOM. ONE LOOSE BM LAST NIGHT. TOLERATING PO INTAKE. DENIES CHEST PAIN.
--- NOTE | 2022-02-17 17:29 | NUR ---
SHIFT SUMMARY PT A&OX4, VSS/RA, CBGS COV REQ PER EMAR, CPAP/BIOX NAP/NOC, VOIDING WELL/URINAL, BMS LIQUID/BROWN X6 THIS SHIFT. R FT 2ND TOE AMP INFECTION, DRESSING CHANGED, ELEVATED ON PILLOW OR WHILE IN CHAIR. AMBULATING INDEPENDENT W/FWW TO BRP, UP TO CHAIR/BED. IV SL/ABX PER EMAR. NICOTINE PATCH L SHOULDER. WILL REPORT TO NEXT RN.
--- NOTE | 2022-02-18 01:20 | NUR ---
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 IF THEIR INTENT WAS TO ORDER BONE SCAN? I SPOKE WITH TRAINING ADMINISTRATOR Madi MELÉNDEZ WHO DISCUSSED POSSIBILITY OF CONFIRMING IN AM.I SPOKE WITH DR CARMEN REGARDING ABOVE AND HE INSTRUCTED ME TO HAVE THIS ORDER CONFIRMED IN AM.
[2022-02-18 05:03] LABS: BASOPHILS ABSOLUTE AUTO 0.02 K/mm3 (0.00-0.23); BASOPHILS PERCENT AUTO 0 % (0-2); EOSINOPHILS ABSOLUTE AUTO 0.05 K/mm3 (0.00-0.68); EOSINOPHILS PERCENT AUTO 1 % (0-6); Hematocrit 29.7 % (37.0-53.0); Hemoglobin 10.1 g/dL (13.5-17.5); IMMATURE GRAN ABSOLUTE AUTO 0.09 K/mm3 (0.00-0.10); IMMATURE GRAN PERCENT AUTO 2 % (0-1); LYMPHOCYTES ABSOLUTE AUTO 1.58 K/mm3 (0.84-5.20); LYMPHOCYTES PERCENT AUTO 35 % (21-46); MONOCYTES ABSOLUTE AUTO 0.35 K/mm3 (0.16-1.47); MONOCYTES PERCENT AUTO 8 % (4-13); Mean Corpuscular HGB 40.2 pg (26.0-34.0); Mean Corpuscular Volume 118 fL (80-100); Mean Platelet Volume 10.1 fL (9.1-12.4); NEUTROPHILS ABSOLUTE AUTO 2.42 K/mm3 (1.96-9.15); NEUTROPHILS PERCENT AUTO 54 % (41-73); Platelet Count 154 K/mm3 (150-400); RDW Coefficient Variation 22.1 % (11.7-14.2); RDW Standard Deviation 93.6 fL (35.1-46.3); Red Blood Cell Count 2.51 M/mm3 (4.30-5.90); White Blood Cell Count 4.51 K/mm3 (4.00-11.30)
[2022-02-18 05:31] LABS: Albumin, Blood 2.6 g/dL (3.4-5.0); Anion Gap 4 mmol/L (6-16); Blood Urea Nitrogen 16 mg/dL (8-24); Bun/Creatinine Ratio 17.3 (12.0-20.0); CO2, Blood 26 mmol/L (21-32); Calcium, Blood 8.6 mg/dL (8.5-10.1); Chloride, Blood 108 mmol/L (98-108); Creatinine, Blood 0.93 mg/dL (0.60-1.20); Glomerular Filtration Rate >60 (60-); Glucose, Blood 159 mg/dL (70-99); Magnesium, Blood 1.8 mg/dL (1.6-2.4); Phosphorus, Blood 2.6 mg/dL (2.5-4.9); Potassium, Blood 3.8 mmol/L (3.5-5.5); Sodium, Blood 138 mmol/L (136-145)
--- NOTE | 2022-02-18 18:51 | NUR ---
SUMMARY REPORTS HAVING TOLERBLE PAIN CONTROL WITH PO PAIN MEDS, LLE DSG CHANGED TODAY, AMBULATING TO THE BATHROOM WITH WALKER AND STANDBY ASSIST, PEDING CONSULT FROM DR. ORTEGA, NO ACUTE CHANGES THIS SHIFT.
[2022-02-19 04:29] LABS: BASOPHILS ABSOLUTE AUTO 0.03 K/mm3 (0.00-0.23); BASOPHILS PERCENT AUTO 1 % (0-2); EOSINOPHILS ABSOLUTE AUTO 0.06 K/mm3 (0.00-0.68); EOSINOPHILS PERCENT AUTO 2 % (0-6); Hematocrit 29.1 % (37.0-53.0); Hemoglobin 9.9 g/dL (13.5-17.5); IMMATURE GRAN ABSOLUTE AUTO 0.08 K/mm3 (0.00-0.10); IMMATURE GRAN PERCENT AUTO 2 % (0-1); LYMPHOCYTES ABSOLUTE AUTO 1.36 K/mm3 (0.84-5.20); LYMPHOCYTES PERCENT AUTO 34 % (21-46); MONOCYTES ABSOLUTE AUTO 0.41 K/mm3 (0.16-1.47); MONOCYTES PERCENT AUTO 10 % (4-13); Mean Corpuscular HGB 40.4 pg (26.0-34.0); Mean Corpuscular Volume 119 fL (80-100); Mean Platelet Volume 10.1 fL (9.1-12.4); NEUTROPHILS ABSOLUTE AUTO 2.11 K/mm3 (1.96-9.15); NEUTROPHILS PERCENT AUTO 52 % (41-73); NRBC ABSOLUTE 0.02 K/mm3 (0.00-0.02); NRBC Auto 0.5 /100 WBC (0.0-0.2); Platelet Count 151 K/mm3 (150-400); RDW Standard Deviation 92.9 fL (35.1-46.3); Red Blood Cell Count 2.45 M/mm3 (4.30-5.90); White Blood Cell Count 4.05 K/mm3 (4.00-11.30)
[2022-02-19 04:49] LABS: International Normalized Ratio 1.57
[2022-02-19 04:59] LABS: Alanine Aminotransfer (ALT/SGP 15 U/L (12-78); Albumin, Blood 2.6 g/dL (3.4-5.0); Albumin/Globulin Ratio 0.6 (0.8-1.8); Alk Phos 71 U/L (50-136); Anion Gap 5 mmol/L (6-16); Aspartate Aminotrans (AST/SGOT 16 U/L (12-37); Bilirubin, Total 0.3 mg/dL (0.1-1.0); Blood Urea Nitrogen 20 mg/dL (8-24); Bun/Creatinine Ratio 20.7 (12.0-20.0); CO2, Blood 26 mmol/L (21-32); Calcium, Blood 8.6 mg/dL (8.5-10.1); Chloride, Blood 108 mmol/L (98-108); Creatinine, Blood 0.97 mg/dL (0.60-1.20); Glomerular Filtration Rate >60 (60-); Glucose, Blood 156 mg/dL (70-99); Sodium, Blood 139 mmol/L (136-145); Total Protein, Blood 6.6 g/dL (6.4-8.2)
--- NOTE | 2022-02-19 07:45 | NUR ---
PT VSS T/O NIGHT. PAIN MGD PER EMAR W/REP RELIEF. DRESSING TO LLE INTACT W/FOUL SMELLING SS DRNG. PT NPO POST MIDNIGHT FOR PLAN FOR OR TODAY. PT USING URINAL TO VOID, IS UP W/FWW+HEEL TOUCH. REPORT GIVEN TO MARSHALL GUTIERREZ.
--- NOTE | 2022-02-19 18:54 | NUR ---
ASSUMPTION OF CARE: Report from MARSHALL Berger prior to arrival to floor. Bedside report received from heart alburgh. R groin dressing remains C/D/I, no s/s of bleeding or hematoma formation. VSS. C/o L leg pain, scheduled pain meds administered with adequate control of pain per pt. Heparin gtt started. Will continue to monitor until transfer of care to oncoming RN.
[2022-02-20 01:03] LABS: BASOPHILS ABSOLUTE AUTO 0.03 K/mm3 (0.00-0.23); BASOPHILS PERCENT AUTO 1 % (0-2); EOSINOPHILS ABSOLUTE AUTO 0.07 K/mm3 (0.00-0.68); EOSINOPHILS PERCENT AUTO 1 % (0-6); Hemoglobin 10.3 g/dL (13.5-17.5); IMMATURE GRAN ABSOLUTE AUTO 0.08 K/mm3 (0.00-0.10); IMMATURE GRAN PERCENT AUTO 1 % (0-1); LYMPHOCYTES ABSOLUTE AUTO 1.14 K/mm3 (0.84-5.20); LYMPHOCYTES PERCENT AUTO 20 % (21-46); MONOCYTES ABSOLUTE AUTO 0.52 K/mm3 (0.16-1.47); MONOCYTES PERCENT AUTO 9 % (4-13); Mean Corpuscular HGB 40.4 pg (26.0-34.0); Mean Corpuscular HGB Conc 34.3 g/dL (31.5-36.5); Mean Corpuscular Volume 118 fL (80-100); Mean Platelet Volume 9.9 fL (9.1-12.4); NEUTROPHILS ABSOLUTE AUTO 3.74 K/mm3 (1.96-9.15); NEUTROPHILS PERCENT AUTO 67 % (41-73); Platelet Count 149 K/mm3 (150-400); RDW Coefficient Variation 21.3 % (11.7-14.2); RDW Standard Deviation 91.2 fL (35.1-46.3); Red Blood Cell Count 2.55 M/mm3 (4.30-5.90); White Blood Cell Count 5.58 K/mm3 (4.00-11.30)
[2022-02-20 01:23] LABS: Alanine Aminotransfer (ALT/SGP 16 U/L (12-78); Albumin, Blood 2.7 g/dL (3.4-5.0); Albumin/Globulin Ratio 0.7 (0.8-1.8); Alk Phos 70 U/L (50-136); Anion Gap 5 mmol/L (6-16); Aspartate Aminotrans (AST/SGOT 18 U/L (12-37); Bilirubin, Total 0.3 mg/dL (0.1-1.0); Blood Urea Nitrogen 17 mg/dL (8-24); Bun/Creatinine Ratio 16.8 (12.0-20.0); CO2, Blood 25 mmol/L (21-32); Calcium, Blood 8.7 mg/dL (8.5-10.1); Chloride, Blood 109 mmol/L (98-108); Creatinine, Blood 1.01 mg/dL (0.60-1.20); Glomerular Filtration Rate >60 (60-); Glucose, Blood 170 mg/dL (70-99); Sodium, Blood 139 mmol/L (136-145); Total Protein, Blood 6.7 g/dL (6.4-8.2)
--- NOTE | 2022-02-20 05:59 | NUR ---
COOK STATION SUMMARY PT IS AXO X4 AND COMMUNICATING APPROPRIATELY. PT BEGAN SHIFT COMFORTABLE W MILD PAIN IN L FOOT HOWEVER THE SHIFT WENT ON HIS PAIN INCREASED DRAMATICALLY REQUIRING IV PAIN MEDICATION INCLUDING AN ADDITIONAL DOSE ORDERED BY THE HOSPITALIST. PT HAS HAD GOOD PULSES PER DOPPLER IN BOTHE FEET. R GROIN SITE IS NON-TENDER, SOFT W NO S/S OF BLEEDING OR HEMATOMA. VSS AND AFEBRILE. O2 SATS >90% ON RM AIR. WOUND CARE PROVIDED AND NEW PICTURES TAKEN, PICS PLACED IN CHART. PT REPORTING LESS PAIN IN L FOOT THIS AM. WILL REPORT TO ONCOMING RN.
--- NOTE | 2022-02-20 14:05 | NUR ---
TRANSFER: Pt transferred to surgical. Report called to Norma. Pt remains A&Ox4. VSS. Afebrile. Scheduled pain meds/PRNs adequately controlling LLE pain, Gabapentin frequency increased. AUO. BM x1-BSC. Tolerating current diet. Heparin gtt maintained. BLE pulses assessed via doppler- no changes noted post revasc on 02/19/22. 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 Podiatry consulted- pending evaluation. Frequent rounds to ensure pt safety. Encouraged pt to reposition q2hrs and pressure points offloaded to prevent pressure ulcers. Pt in no apparent distress at transfer.
--- NOTE | 2022-02-20 14:18 | NUR ---
PT ARRIVED TO UNIT TX FROM PCU AT APROX 1400. HEPARIN GTT INFUSING. PT REPORTS PAIN TOLERABLE AT THIS TIME
--- NOTE | 2022-02-20 17:56 | NUR ---
"SHIFT" SUMMARY SINCE ARRIVAL TO UNIT AROUND 1400, PT HAS RESTED IN BED. PAIN WELL CONTROLLED. EATING, DRINKING, & VOIDING. WAITING PODIATRY CONSULT THIS EVENING.
[2022-02-20 23:33] LABS: Vancomycin, Trough 13.5 ug/mL (5.0-10.0)
[2022-02-21 05:35] LABS: BASOPHILS ABSOLUTE AUTO 0.05 K/mm3 (0.00-0.23); BASOPHILS PERCENT AUTO 1 % (0-2); EOSINOPHILS ABSOLUTE AUTO 0.14 K/mm3 (0.00-0.68); EOSINOPHILS PERCENT AUTO 2 % (0-6); Hematocrit 28.2 % (37.0-53.0); Hemoglobin 9.7 g/dL (13.5-17.5); IMMATURE GRAN ABSOLUTE AUTO 0.25 K/mm3 (0.00-0.10); IMMATURE GRAN PERCENT AUTO 4 % (0-1); LYMPHOCYTES ABSOLUTE AUTO 1.85 K/mm3 (0.84-5.20); LYMPHOCYTES PERCENT AUTO 28 % (21-46); MONOCYTES ABSOLUTE AUTO 0.85 K/mm3 (0.16-1.47); MONOCYTES PERCENT AUTO 13 % (4-13); Mean Corpuscular HGB 40.8 pg (26.0-34.0); Mean Corpuscular HGB Conc 34.4 g/dL (31.5-36.5); Mean Corpuscular Volume 119 fL (80-100); Mean Platelet Volume 10.3 fL (9.1-12.4); NEUTROPHILS ABSOLUTE AUTO 3.52 K/mm3 (1.96-9.15); NEUTROPHILS PERCENT AUTO 53 % (41-73); Platelet Count 150 K/mm3 (150-400); RDW Coefficient Variation 21.4 % (11.7-14.2); RDW Standard Deviation 92.9 fL (35.1-46.3); Red Blood Cell Count 2.38 M/mm3 (4.30-5.90); White Blood Cell Count 6.66 K/mm3 (4.00-11.30)
[2022-02-21 05:54] LABS: Anion Gap 7 mmol/L (6-16); Blood Urea Nitrogen 15 mg/dL (8-24); Bun/Creatinine Ratio 16.9 (12.0-20.0); CO2, Blood 22 mmol/L (21-32); Calcium, Blood 8.7 mg/dL (8.5-10.1); Chloride, Blood 107 mmol/L (98-108); Creatinine, Blood 0.89 mg/dL (0.60-1.20); Glomerular Filtration Rate >60 (60-); Glucose, Blood 134 mg/dL (70-99); Potassium, Blood 3.8 mmol/L (3.5-5.5); Sodium, Blood 136 mmol/L (136-145)
--- NOTE | 2022-02-21 06:41 | NUR ---
SUMMARY PT PAIN REMAINED HIGH. DR NORTON CALLED AND INCREASED FREQUENCY OG PAIN MED. PT PAIN IS MANAGED WELL. PT HAS SLEPT WELL T/OUT SHIFT VIA CPAP. PT CURRENTLY SLEEPING AND BREATHING EASY. CALL LIGHT IN REACH AND BED ALARM ON.
--- NOTE | 2022-02-21 09:00 | NUR ---
PT FAUSTINO COOP A/O. DISCUSSED PRIOR Azooo. PAIN MANAGED WITH AVAIL PAIN MEDS. H/R REG, NO MURMER NOTED. NO TELE. LUNGS CLEAR BUT DIM T/O DUE TO BODY HABITUS. ON R/A. RESP EASY, UNLABORED. BT X4 LAST BM YEST. LOOSE. HOLDING STOOL SOFT. VIOIDS URINAL. BED IN LOW POSITION, CALL LITE IN REACH, CALLS APPROP. PENDIN SURG ON FOOT. PRESENTLY ON HEPARIN DRIP FOR REVASCULARIZATION. SITE IN RT GROIN CDI. NO HEMATOMA, BRUISING, BLOOD NOTED. VERY LITE PIAN REPORTED.
[2022-02-21 11:34] LABS: Influenza A, PCR NEGATIVE (NEGATIVE); Influenza B, PCR NEGATIVE (NEGATIVE); Resp Syncytial Virus, PCR NEGATIVE (NEGATIVE); SARS-Cov-2 (COVID-19) PCR, MMC NEGATIVE (NEGATIVE)
[2022-02-21 12:20] LABS: Vancomycin, Trough 15.7 ug/mL (5.0-10.0)
--- NOTE | 2022-02-21 12:45 | NUR ---
SUKH HERE TO GET PT TO DAY SURG. PT ON HEPARIN DRIP. MAY HAVE ISSUES WITH DR PAUL. SHE TO [facility] DR PAUL CONTACT DR ORTEGA AND ADVISE IF OKAY TO STOP FOR SURG. PEND CALL
--- NOTE | 2022-02-21 15:17 | NUR ---
per dr nj, night midnite, npo saturday 0600 am, d/c heparin saturday noon, foot surgery. pt can eat now. he to speak to dr lopez and they can make changes if need.
--- NOTE | 2022-02-21 18:29 | NUR ---
gene has been quite pleasasnt today. got set back on surgery to saturday noon. will continue heparin deni thru saturday [address] nj in to see pt today. dr ramires adjusting pain meds to better suit pt. pt states pleased withthe concerns. states understands plan. bed in low position, call lite in reach, calls approp
[2022-02-22 01:06] LABS: BASOPHILS ABSOLUTE AUTO 0.04 K/mm3 (0.00-0.23); BASOPHILS PERCENT AUTO 1 % (0-2); EOSINOPHILS ABSOLUTE AUTO 0.12 K/mm3 (0.00-0.68); EOSINOPHILS PERCENT AUTO 2 % (0-6); Hematocrit 27.1 % (37.0-53.0); Hemoglobin 9.5 g/dL (13.5-17.5); IMMATURE GRAN ABSOLUTE AUTO 0.12 K/mm3 (0.00-0.10); IMMATURE GRAN PERCENT AUTO 2 % (0-1); LYMPHOCYTES ABSOLUTE AUTO 1.53 K/mm3 (0.84-5.20); LYMPHOCYTES PERCENT AUTO 27 % (21-46); MONOCYTES ABSOLUTE AUTO 0.76 K/mm3 (0.16-1.47); MONOCYTES PERCENT AUTO 13 % (4-13); Mean Corpuscular HGB 41.1 pg (26.0-34.0); Mean Corpuscular HGB Conc 35.1 g/dL (31.5-36.5); Mean Corpuscular Volume 117 fL (80-100); Mean Platelet Volume 10.3 fL (9.1-12.4); NEUTROPHILS ABSOLUTE AUTO 3.14 K/mm3 (1.96-9.15); NEUTROPHILS PERCENT AUTO 55 % (41-73); Platelet Count 142 K/mm3 (150-400); RDW Coefficient Variation 20.7 % (11.7-14.2); RDW Standard Deviation 87.6 fL (35.1-46.3); Red Blood Cell Count 2.31 M/mm3 (4.30-5.90); White Blood Cell Count 5.71 K/mm3 (4.00-11.30)
[2022-02-22 01:26] LABS: Anion Gap 8 mmol/L (6-16); Blood Urea Nitrogen 17 mg/dL (8-24); Bun/Creatinine Ratio 17.5 (12.0-20.0); CO2, Blood 24 mmol/L (21-32); Calcium, Blood 8.3 mg/dL (8.5-10.1); Chloride, Blood 105 mmol/L (98-108); Creatinine, Blood 0.97 mg/dL (0.60-1.20); Glomerular Filtration Rate >60 (60-); Glucose, Blood 173 mg/dL (70-99); Potassium, Blood 3.7 mmol/L (3.5-5.5); Sodium, Blood 137 mmol/L (136-145)
--- NOTE | 2022-02-22 04:54 | NUR ---
SUMMARY NO NEW ISSUES NOTED. PT DISCOMFORT TX WELL PER EMAR. PT HAS SLEPT WELL DURING SHIFT. PT CURRENTLY SLEEPING W/ CPAP IN NO DISTRESS. CALL LIGHT IN REACH.
--- NOTE | 2022-02-22 17:15 | NUR ---
SUMMARY PAIN TOLERABLE WITH PO PAIN MEDS, PTT 127.4 EARLIER TODAY, RATE DECREASED PER PHARMACY, PT REPOSITIONS SELF IN BED AND DANGLES, LLE DRESSING CHANGED EARLIER TODAY, SEE DRESSING CHANGE NOTE, DECREASED REDNESS NOTED ON LLE, PLAN FOR SURGERY IN AM, NO ACUTE CHANGES THIS SHIFT.
[2022-02-23 01:12] LABS: BASOPHILS ABSOLUTE AUTO 0.06 K/mm3 (0.00-0.23); BASOPHILS PERCENT AUTO 1 % (0-2); EOSINOPHILS ABSOLUTE AUTO 0.12 K/mm3 (0.00-0.68); EOSINOPHILS PERCENT AUTO 2 % (0-6); Hematocrit 26.9 % (37.0-53.0); Hemoglobin 9.3 g/dL (13.5-17.5); IMMATURE GRAN PERCENT AUTO 2 % (0-1); LYMPHOCYTES ABSOLUTE AUTO 1.87 K/mm3 (0.84-5.20); LYMPHOCYTES PERCENT AUTO 31 % (21-46); MONOCYTES ABSOLUTE AUTO 0.71 K/mm3 (0.16-1.47); MONOCYTES PERCENT AUTO 12 % (4-13); Mean Corpuscular HGB 40.8 pg (26.0-34.0); Mean Corpuscular HGB Conc 34.6 g/dL (31.5-36.5); Mean Corpuscular Volume 118 fL (80-100); NEUTROPHILS ABSOLUTE AUTO 3.23 K/mm3 (1.96-9.15); NEUTROPHILS PERCENT AUTO 53 % (41-73); Platelet Count 152 K/mm3 (150-400); RDW Coefficient Variation 20.7 % (11.7-14.2); RDW Standard Deviation 88.3 fL (35.1-46.3); Red Blood Cell Count 2.28 M/mm3 (4.30-5.90); White Blood Cell Count 6.09 K/mm3 (4.00-11.30)
[2022-02-23 01:32] LABS: Alanine Aminotransfer (ALT/SGP 20 U/L (12-78); Albumin, Blood 2.3 g/dL (3.4-5.0); Albumin/Globulin Ratio 0.6 (0.8-1.8); Alk Phos 73 U/L (50-136); Anion Gap 8 mmol/L (6-16); Aspartate Aminotrans (AST/SGOT 13 U/L (12-37); Bilirubin, Total 0.2 mg/dL (0.1-1.0); Blood Urea Nitrogen 16 mg/dL (8-24); CO2, Blood 23 mmol/L (21-32); Calcium, Blood 8.4 mg/dL (8.5-10.1); Chloride, Blood 105 mmol/L (98-108); Globulin, Blood 4.1 g/dL (2.2-4.0); Glomerular Filtration Rate >60 (60-); Glucose, Blood 213 mg/dL (70-99); Potassium, Blood 3.8 mmol/L (3.5-5.5); Sodium, Blood 136 mmol/L (136-145); Total Protein, Blood 6.4 g/dL (6.4-8.2)
--- NOTE | 2022-02-23 11:14 | NUR ---
History, Chart, Medications and Allergies reviewed before start of procedure.Lungs clear T/O to Auscultation. Patient confirms NPO status and agrees with scheduled surgery. Pre-Op teaching done. Pt verbalizes understanding.
[2022-02-23 11:43] LABS: Vancomycin, Trough 16.8 ug/mL (5.0-10.0)
--- NOTE | 2022-02-23 15:51 | NUR ---
TELEPHONE CALL TO [facility] HOSPITALIST RE ANTIGOAGULATION POST OP. DR WANTED ME TO CHECK WITH OTHER WOOD PROCESSING MACHINE OPERATOR THAT DID SURGERY FOR THAT ORDER. TELEPHONE CALL TO DR PAUL AND HE WANTS [facility] TO MAKE THAT DECISION. TELEPHONE CALL TO [facility] HOSPITALIST AND RECEIVED NEW ORDER TO RESTART PT'S COUMADIN HOME DOSE TONIGHT, AND DC HEPARIN.
--- NOTE | 2022-02-23 19:58 | NUR ---
SHIFT SUMMARY PT A&OX4, VSS/RA, CBGS COV PER EMAR. S/P L FT PART AMP, DRESSING CDI, ELEVATED BLE; NWB. SANDRITA PO. PAIN TREATED PER EMAR. VOIDING/URINAL. REPORT PROVIDED TO ABDIAZIZ OLIVARES.
[2022-02-24 04:44] LABS: International Normalized Ratio 1.21; Prothrombin Time Results 12.5 Sec (9.7-11.5)
[2022-02-24 09:35] LABS: BASOPHILS ABSOLUTE AUTO 0.04 K/mm3 (0.00-0.23); BASOPHILS PERCENT AUTO 0 % (0-2); EOSINOPHILS ABSOLUTE AUTO 0.03 K/mm3 (0.00-0.68); EOSINOPHILS PERCENT AUTO 0 % (0-6); Hematocrit 29.9 % (37.0-53.0); Hemoglobin 10.2 g/dL (13.5-17.5); IMMATURE GRAN ABSOLUTE AUTO 0.18 K/mm3 (0.00-0.10); IMMATURE GRAN PERCENT AUTO 2 % (0-1); LYMPHOCYTES ABSOLUTE AUTO 1.45 K/mm3 (0.84-5.20); LYMPHOCYTES PERCENT AUTO 16 % (21-46); MONOCYTES ABSOLUTE AUTO 0.85 K/mm3 (0.16-1.47); MONOCYTES PERCENT AUTO 9 % (4-13); Mean Corpuscular HGB 41.1 pg (26.0-34.0); Mean Corpuscular HGB Conc 34.1 g/dL (31.5-36.5); Mean Corpuscular Volume 121 fL (80-100); Mean Platelet Volume 10.6 fL (9.1-12.4); NEUTROPHILS ABSOLUTE AUTO 6.68 K/mm3 (1.96-9.15); NEUTROPHILS PERCENT AUTO 72 % (41-73); Platelet Count 185 K/mm3 (150-400); RDW Coefficient Variation 20.7 % (11.7-14.2); RDW Standard Deviation 91.5 fL (35.1-46.3); Red Blood Cell Count 2.48 M/mm3 (4.30-5.90); White Blood Cell Count 9.23 K/mm3 (4.00-11.30)
[2022-02-24] MEDS ORDERED: Nicoderm Cq1 EAC1 TOP (16:51)
[2022-02-24] MEDS ORDERED: MELO7.5 PO (16:51)
[2022-02-24] MEDS ORDERED: Percocet 10-321 EACH PO (16:52)
--- NOTE | 2022-02-24 17:28 | NUR ---
PT MET WITH PATIENT THIS MORNING AND REPORTED THAT PT IS ABLE TO SLOWLY AMBULATE WITH A WALKER AND IS NON-WEIGHT BEARING ON HIS L FOOT. PT MONITORED THROUGHOUT THE DAY AND FOUND TO BE ABLE TO USE FRONT WHEELED WALKER TO AMBULATE TO BATHROOM. PT TO BE DISCHARGED HOME. [facility] DELIVERING WHEELCHAIR AND COMMODE TO PATIENT @ PATIENT TO BE TRANSPORTED HOME BY FRIEND. ALL MEDICATIONS GIVEN ORDERED THROUGHOUT SHIFT.
--- NOTE | 2022-02-24 18:29 | NUR ---
PATIENT DISCHARGED AND ESCORTED TO PRIVATE VEHICLE VIA WHEELCHAIR. PATIENT ASSISTED INTO THE VEHICLE BY NURSING STAFF W/O INCIDENT. PATIENT'S BELONGINGS LOADED INTO VEHICLE WELL. PATIENT DEPARTED W/O INCIDENT. NOTHING FURHTER TO REPORT.
== END 2022-02-24 18:32 | disposition home or self-care (01) | DRG 240 ==
LOC: ER 13:15 → PCU 17:06 → SURS 17:06 → PCU 02-19 17:00 → SURS 02-20 14:16
PROVIDERS: Hospitalist; Internal Medicine; Physician Assistant; Podiatrist Foot & Ankle Surgery; ADMIT Family Medicine
PROC: 04FQ3ZZ Fragmentation of Left Anterior Tibial Artery, Percutaneous Approach (ICD-10-PCS; principal; 2022-02-20)
PROC: 0Y6N0Z9 Detachment at Left Foot, Partial 1st Ray, Open Approach (ICD-10-PCS; 2022-02-20)
PROC: 047J3ZZ Dilation of Left External Iliac Artery, Percutaneous Approach (ICD-10-PCS; 2022-02-20)
PROC: 047S3ZZ Dilation of Left Posterior Tibial Artery, Percutaneous Approach (ICD-10-PCS; 2022-02-20)
PROC: 0Y6N0ZB Detachment at Left Foot, Partial 2nd Ray, Open Approach (ICD-10-PCS; 2022-02-20)
PROC: 0Y6N0ZC Detachment at Left Foot, Partial 3rd Ray, Open Approach (ICD-10-PCS; 2022-02-20)
PROC: 0Y6N0ZD Detachment at Left Foot, Partial 4th Ray, Open Approach (ICD-10-PCS; 2022-02-20)
PROC: 0Y6N0ZF Detachment at Left Foot, Partial 5th Ray, Open Approach (ICD-10-PCS; 2022-02-20)
DX: E11.51 Type 2 diabetes mellitus with diabetic peripheral angiopathy without gangrene (principal); M86.172 Other acute osteomyelitis, left ankle and foot; I42.9 Cardiomyopathy, unspecified; E11.69 Type 2 diabetes mellitus with other specified complication; Z20.822 Contact with and (suspected) exposure to COVID-19; I25.10 Atherosclerotic heart disease of native coronary artery without angina pectoris; B95.62 Methicillin resistant Staphylococcus aureus infection as the cause of diseases classified elsewhere; F17.200 Nicotine dependence, unspecified, uncomplicated; E11.40 Type 2 diabetes mellitus with diabetic neuropathy, unspecified; F32.A Depression, unspecified; I50.9 Heart failure, unspecified; I11.0 Hypertensive heart disease with heart failure; D53.9 Nutritional anemia, unspecified; E78.5 Hyperlipidemia, unspecified; I25.2 Old myocardial infarction; Z95.0 Presence of cardiac pacemaker; Z98.890 Other specified postprocedural states; Z86.73 Personal history of transient ischemic attack (TIA), and cerebral infarction without residual deficits; Z88.8 Allergy status to other drugs, medicaments and biological substances; Z89.432 Acquired absence of left foot; Z79.4 Long term (current) use of insulin; Z79.82 Long term (current) use of aspirin; Z79.899 Other long term (current) drug therapy
CPT/HCPCS: 0241U; 36415; 37220; 37228; 37232; 75716; 75774; 76937; 78300; 80048; 80053; 80069; 80202; 82947; 83036; 83605; 83735; 83880; 85025; 85347; 85610; 85651; 85730; 86140; 87040; 88307; 88311; 94660; 94762; 96365; 96375; 97110; 97161; 97164; 97165; 97530; 97535; 99152; 99153; 99284-25; A9270; A9503; C1725; C1760; C1769; C1887; C1894; C9772; J0696; J1100; J1170; J1644; J1650; J1815; J2250; J2370; J2405; J2704; J3010; J3370; J7030; J7050; J7120; Q9967

== ENCOUNTER 2022-03-16 01:14 | Day surgery (SDC) | payer OTHER ==
[~2022-03-16 01:14] MED LIST changes: +MELO7.5 PO; +NEURONTIN300 MG; +Nicoderm Cq1 EAC1 TOP; +VICTOZA 2-0.6 MG/0.1 SC
== END 2022-03-16 22:45 | disposition home or self-care (01) ==
LOC: WOUND 01:14
DX: T87.81 Dehiscence of amputation stump (principal); E11.621 Type 2 diabetes mellitus with foot ulcer; L97.526 Non-pressure chronic ulcer of other part of left foot with bone involvement without evidence of necrosis; J44.9 Chronic obstructive pulmonary disease, unspecified; G47.30 Sleep apnea, unspecified; I11.0 Hypertensive heart disease with heart failure; I50.9 Heart failure, unspecified; I25.10 Atherosclerotic heart disease of native coronary artery without angina pectoris; E11.51 Type 2 diabetes mellitus with diabetic peripheral angiopathy without gangrene; M19.90 Unspecified osteoarthritis, unspecified site; F03.90 Unspecified dementia, unspecified severity, without behavioral disturbance, psychotic disturbance, mood disturbance, and anxiety; E11.36 Type 2 diabetes mellitus with diabetic cataract; H26.9 Unspecified cataract; F17.210 Nicotine dependence, cigarettes, uncomplicated; Z79.4 Long term (current) use of insulin; Z95.0 Presence of cardiac pacemaker
CPT/HCPCS: 99406; G0463

== ENCOUNTER 2022-05-31 17:56 | Emergency (ER) | payer OTHER ==
[~2022-05-31] VITALS: Ht 177.8 cm; Wt 117.9 kg
[2022-05-31 19:04] LABS: International Normalized Ratio 1.78
[2022-05-31 19:08] LABS: BASOPHILS ABSOLUTE AUTO 0.05 K/mm3 (0.00-0.23); BASOPHILS PERCENT AUTO 1 % (0-2); EOSINOPHILS ABSOLUTE AUTO 0.17 K/mm3 (0.00-0.68); EOSINOPHILS PERCENT AUTO 3 % (0-6); Hemoglobin 13.5 g/dL (13.5-17.5); IMMATURE GRAN ABSOLUTE AUTO 0.04 K/mm3 (0.00-0.10); IMMATURE GRAN PERCENT AUTO 1 % (0-1); LYMPHOCYTES ABSOLUTE AUTO 1.64 K/mm3 (0.84-5.20); LYMPHOCYTES PERCENT AUTO 25 % (21-46); MONOCYTES ABSOLUTE AUTO 0.43 K/mm3 (0.16-1.47); MONOCYTES PERCENT AUTO 7 % (4-13); Mean Corpuscular HGB 32.9 pg (26.0-34.0); Mean Corpuscular HGB Conc 33.8 g/dL (31.5-36.5); Mean Corpuscular Volume 98 fL (80-100); NEUTROPHILS ABSOLUTE AUTO 4.13 K/mm3 (1.96-9.15); NEUTROPHILS PERCENT AUTO 64 % (41-73); RDW Coefficient Variation 14.4 % (11.7-14.2); RDW Standard Deviation 51.2 fL (35.1-46.3); White Blood Cell Count 6.46 K/mm3 (4.00-11.30)
[2022-05-31 19:38] LABS: Albumin, Blood 3.1 g/dL (3.4-5.0); Albumin/Globulin Ratio 0.7 (0.8-1.8); Bilirubin, Total 0.4 mg/dL (0.1-1.0); Bun/Creatinine Ratio 19.9 (12.0-20.0); Calcium, Blood 8.6 mg/dL (8.5-10.1); Creatinine, Blood 0.96 mg/dL (0.60-1.20); Globulin, Blood 4.2 g/dL (2.2-4.0); Total Protein, Blood 7.3 g/dL (6.4-8.2)
[2022-05-31 19:40] LABS: Potassium, Blood 5.2 mmol/L (3.5-5.5)
[2022-05-31 19:56] LABS: Mean Platelet Volume 12.8 fL (9.1-12.4); Platelet Count 121 K/mm3 (150-400)
== END 2022-05-31 22:30 | disposition home or self-care (01) ==
LOC: ER 17:56
PROVIDERS: Emergency Medicine
DX: R07.9 Chest pain, unspecified (principal); E11.9 Type 2 diabetes mellitus without complications; F17.200 Nicotine dependence, unspecified, uncomplicated; Z86.73 Personal history of transient ischemic attack (TIA), and cerebral infarction without residual deficits; Z95.0 Presence of cardiac pacemaker
CPT/HCPCS: 71046; 80053; 83880; 84484; 85025; 85610; 93005; 93010; 99285-25

== ENCOUNTER → 2022-07-30 | Outpatient (CLI) | payer OTHER ==
[2022-07-30 15:04] LABS: BASOPHILS ABSOLUTE AUTO 0.04 K/mm3 (0.00-0.23); BASOPHILS PERCENT AUTO 1 % (0-2); EOSINOPHILS ABSOLUTE AUTO 0.08 K/mm3 (0.00-0.68); EOSINOPHILS PERCENT AUTO 1 % (0-6); Hemoglobin 14.1 g/dL (13.5-17.5); IMMATURE GRAN ABSOLUTE AUTO 0.08 K/mm3 (0.00-0.10); IMMATURE GRAN PERCENT AUTO 1 % (0-1); LYMPHOCYTES ABSOLUTE AUTO 1.81 K/mm3 (0.84-5.20); LYMPHOCYTES PERCENT AUTO 23 % (21-46); MONOCYTES ABSOLUTE AUTO 0.61 K/mm3 (0.16-1.47); MONOCYTES PERCENT AUTO 8 % (4-13); Mean Corpuscular HGB 32.7 pg (26.0-34.0); Mean Corpuscular HGB Conc 34.4 g/dL (31.5-36.5); Mean Corpuscular Volume 95 fL (80-100); Mean Platelet Volume 11.7 fL (9.1-12.4); NEUTROPHILS PERCENT AUTO 67 % (41-73); Platelet Count 141 K/mm3 (150-400); RDW Coefficient Variation 14.8 % (11.7-14.2); RDW Standard Deviation 52.4 fL (35.1-46.3); Red Blood Cell Count 4.31 M/mm3 (4.30-5.90); White Blood Cell Count 8.02 K/mm3 (4.00-11.30)
[2022-07-30 15:08] LABS: Albumin, Blood 2.8 g/dL (3.4-5.0); Albumin/Globulin Ratio 0.6 (0.8-1.8); Bilirubin, Total 0.4 mg/dL (0.1-1.0); Bun/Creatinine Ratio 11.7 (12.0-20.0); Calcium, Blood 8.7 mg/dL (8.5-10.1); Creatinine, Blood 1.11 mg/dL (0.60-1.20); Globulin, Blood 4.6 g/dL (2.2-4.0); Potassium, Blood 4.4 mmol/L (3.5-5.5); Total Protein, Blood 7.4 g/dL (6.4-8.2); Uric Acid, Blood 3.4 mg/dL (3.5-7.2)
== END | disposition home or self-care (01) ==
LOC: LAB SHORT 14:53
PROVIDERS: Physician Assistant Medical
DX: M25.531 Pain in right wrist (principal)
CPT/HCPCS: 80053; 84550; 85025; 85651; 86140

== ENCOUNTER 2022-09-05 16:43 | Emergency (ER) | payer OTHER ==
[~2022-09-05] VITALS: Ht 177.8 cm; Wt 113.4 kg
[2022-09-05 17:33] LABS: BASOPHILS ABSOLUTE AUTO 0.03 K/mm3 (0.00-0.23); BASOPHILS PERCENT AUTO 0 % (0-2); EOSINOPHILS ABSOLUTE AUTO 0.06 K/mm3 (0.00-0.68); EOSINOPHILS PERCENT AUTO 1 % (0-6); Hematocrit 39.6 % (37.0-53.0); Hemoglobin 13.8 g/dL (13.5-17.5); IMMATURE GRAN ABSOLUTE AUTO 0.06 K/mm3 (0.00-0.10); IMMATURE GRAN PERCENT AUTO 1 % (0-1); LYMPHOCYTES ABSOLUTE AUTO 1.15 K/mm3 (0.84-5.20); LYMPHOCYTES PERCENT AUTO 17 % (21-46); MONOCYTES ABSOLUTE AUTO 0.58 K/mm3 (0.16-1.47); MONOCYTES PERCENT AUTO 9 % (4-13); Mean Corpuscular HGB 33.8 pg (26.0-34.0); Mean Corpuscular HGB Conc 34.8 g/dL (31.5-36.5); Mean Corpuscular Volume 97 fL (80-100); Mean Platelet Volume 12.4 fL (9.1-12.4); NEUTROPHILS ABSOLUTE AUTO 4.83 K/mm3 (1.96-9.15); NEUTROPHILS PERCENT AUTO 72 % (41-73); Platelet Count 128 K/mm3 (150-400); RDW Coefficient Variation 13.8 % (11.7-14.2); RDW Standard Deviation 49.1 fL (35.1-46.3); Red Blood Cell Count 4.08 M/mm3 (4.30-5.90); White Blood Cell Count 6.71 K/mm3 (4.00-11.30)
[2022-09-05 17:42] LABS: Albumin, Blood 2.6 g/dL (3.4-5.0); Albumin/Globulin Ratio 0.6 (0.8-1.8); Bilirubin, Total 0.3 mg/dL (0.1-1.0); Bun/Creatinine Ratio 21.4 (12.0-20.0); Calcium, Blood 8.8 mg/dL (8.5-10.1); Creatinine, Blood 0.75 mg/dL (0.60-1.20); Globulin, Blood 4.3 g/dL (2.2-4.0); Total Protein, Blood 6.9 g/dL (6.4-8.2)
[2022-09-05 17:43] LABS: Source, Urine Clean Catch
[2022-09-05 17:46] LABS: Base Excess Venous -1.7 mmol/L; PCO2 Venous 38.2 mmHg (38-42); pH Blood Venous 7.39 (7.34-7.37)
[2022-09-05 18:03] LABS: Appearance, Urine Clear (Clear); Bilirubin, Urine Neg (Neg); Blood, Urine Neg (Neg); Glucose Qualitative, Urine 4+ (Neg); Ketones, Urine Neg (Neg); Leukocyte Esterase, Urine Neg (Neg); Nitrite, Urine Neg (Neg); Protein, Urine Neg (Neg); Urobilinogen, Urine NORM (Normal)
[2022-09-05 18:28] LABS: Color, Urine Pale Yellow (P-Yellow)
== END 2022-09-05 21:46 | disposition home or self-care (01) ==
LOC: ER 16:43
PROVIDERS: Emergency Medicine
DX: E11.65 Type 2 diabetes mellitus with hyperglycemia (principal); F17.200 Nicotine dependence, unspecified, uncomplicated; Z86.73 Personal history of transient ischemic attack (TIA), and cerebral infarction without residual deficits; Z95.0 Presence of cardiac pacemaker
CPT/HCPCS: 71045; 80053; 81003; 82010; 82803; 82947; 85025; 93005; 93010; J1815; J7030

== ENCOUNTER → 2022-09-13 | Outpatient (CLI) | payer OTHER | END | disposition home or self-care (01) | LOC: LAB 14:10 → LAB SHORT 14:10 | DX: E11.621 Type 2 diabetes mellitus with foot ulcer (principal); L97.519 Non-pressure chronic ulcer of other part of right foot with unspecified severity | CPT/HCPCS: 87070; 87077; 87186; 87205 ==

== ENCOUNTER → 2022-10-15 | Outpatient (CLI) | payer OTHER ==
[2022-10-15 19:19] LABS: BASOPHILS ABSOLUTE AUTO 0.05 K/mm3 (0.00-0.23); BASOPHILS PERCENT AUTO 1 % (0-2); EOSINOPHILS ABSOLUTE AUTO 0.07 K/mm3 (0.00-0.68); EOSINOPHILS PERCENT AUTO 1 % (0-6); Hematocrit 46.1 % (37.0-53.0); Hemoglobin 15.2 g/dL (13.5-17.5); IMMATURE GRAN ABSOLUTE AUTO 0.07 K/mm3 (0.00-0.10); IMMATURE GRAN PERCENT AUTO 1 % (0-1); LYMPHOCYTES ABSOLUTE AUTO 1.95 K/mm3 (0.84-5.20); LYMPHOCYTES PERCENT AUTO 22 % (21-46); MONOCYTES PERCENT AUTO 6 % (4-13); Mean Corpuscular HGB 33.6 pg (26.0-34.0); Mean Corpuscular Volume 102 fL (80-100); Mean Platelet Volume 11.1 fL (9.1-12.4); NEUTROPHILS ABSOLUTE AUTO 6.31 K/mm3 (1.96-9.15); NEUTROPHILS PERCENT AUTO 70 % (41-73); Platelet Count 176 K/mm3 (150-400); RDW Coefficient Variation 14.6 % (11.7-14.2); RDW Standard Deviation 54.4 fL (35.1-46.3); Red Blood Cell Count 4.52 M/mm3 (4.30-5.90); White Blood Cell Count 8.95 K/mm3 (4.00-11.30)
== END | disposition home or self-care (01) ==
LOC: LAB 14:05 → LAB SHORT 14:05
PROVIDERS: Nurse Practitioner Family
DX: E11.621 Type 2 diabetes mellitus with foot ulcer (principal); I10 Essential (primary) hypertension
CPT/HCPCS: 83036; 85025

== ENCOUNTER → 2022-10-18 | Outpatient (CLI) | payer OTHER ==
[2022-10-18 19:08] LABS: Very Low Density Lipoprot Chol 48 mg/dL (6-32)
[2022-10-18 19:19] LABS: Alanine Aminotransfer (ALT/SGP 20 U/L (12-78); Albumin, Blood 2.9 g/dL (3.4-5.0); Albumin/Globulin Ratio 0.7 (0.8-1.8); Alk Phos 81 U/L (50-136); Anion Gap 6 mmol/L (6-16); Aspartate Aminotrans (AST/SGOT 13 U/L (12-37); Bilirubin, Total 0.2 mg/dL (0.1-1.0); Blood Urea Nitrogen 18 mg/dL (8-24); Bun/Creatinine Ratio 19.5 (12.0-20.0); CO2, Blood 26 mmol/L (21-32); Calcium, Blood 8.9 mg/dL (8.5-10.1); Chloride, Blood 106 mmol/L (98-108); Cholesterol 112 mg/dL (50-200); Creatinine, Blood 0.92 mg/dL (0.60-1.20); Globulin, Blood 4.2 g/dL (2.2-4.0); Glomerular Filtration Rate 87 (60-); Glucose, Blood 155 mg/dL (70-99); HDL Cholesterol 37 mg/dL (>39); LDL/HDL RATIO 0.7; Low Density Lipoprotein Chol 27 mg/dL (0-110); Potassium, Blood 4.1 mmol/L (3.5-5.5); Sodium, Blood 138 mmol/L (136-145); Total Protein, Blood 7.1 g/dL (6.4-8.2); Triglycerides 242 mg/dL (30-160)
== END | disposition home or self-care (01) ==
LOC: LAB 13:25 → LAB SHORT 13:25
PROVIDERS: Nurse Practitioner Family
DX: E11.42 Type 2 diabetes mellitus with diabetic polyneuropathy (principal); E11.621 Type 2 diabetes mellitus with foot ulcer; E11.21 Type 2 diabetes mellitus with diabetic nephropathy; E78.2 Mixed hyperlipidemia
CPT/HCPCS: 80053; 80061

== ENCOUNTER → 2022-10-19 | Outpatient (CLI) | payer OTHER | LOC: LAB 11:07 → LAB SHORT 11:07 | DX: L97.509 Non-pressure chronic ulcer of other part of unspecified foot with unspecified severity (principal) | CPT/HCPCS: 87070; 87075; 87077; 87186; 87205 ==

== ENCOUNTER → 2022-10-22 | Outpatient (CLI) | payer OTHER ==
[2022-10-22 19:52] LABS: Microalb/Creat Ratio UR, Rand 7.742 mg/g (0.000-30.000); Microalbumin, Random Urine 7.51 mg/L (0.000-20.000)
== END | disposition home or self-care (01) ==
LOC: LAB SHORT 14:30 → LAB 14:30
PROVIDERS: Nurse Practitioner Family
DX: E11.21 Type 2 diabetes mellitus with diabetic nephropathy (principal)
CPT/HCPCS: 82043; 82570

== ENCOUNTER 2022-11-07 09:01 | Day surgery (SDC) | payer OTHER ==
[~2022-11-07] VITALS: Ht 177.8 cm; Wt 113.7 kg
[2022-11-07] MEDS ORDERED: ELIQUIS2.5 MG PO (10:20)
== END 2022-11-07 13:31 | disposition home or self-care (01) ==
LOC: ORSCSDS 09:01
PROVIDERS: Internal Medicine Gastroenterology
PROC: 0DBM8ZX Excision of Descending Colon, Via Natural or Artificial Opening Endoscopic, Diagnostic (ICD-10-PCS; principal; 2022-11-07 10:45)
PROC: 0DB68ZX Excision of Stomach, Via Natural or Artificial Opening Endoscopic, Diagnostic (ICD-10-PCS; principal; 2022-11-07 10:45)
PROC: 0D757ZZ Dilation of Esophagus, Via Natural or Artificial Opening (ICD-10-PCS; principal; 2022-11-07 10:45)
PROC: 0DBL8ZX Excision of Transverse Colon, Via Natural or Artificial Opening Endoscopic, Diagnostic (ICD-10-PCS; principal; 2022-11-07 10:45)
PROC: 0DBK8ZX Excision of Ascending Colon, Via Natural or Artificial Opening Endoscopic, Diagnostic (ICD-10-PCS; principal; 2022-11-07 10:45)
PROC: 0DBN8ZX Excision of Sigmoid Colon, Via Natural or Artificial Opening Endoscopic, Diagnostic (ICD-10-PCS; principal; 2022-11-07 10:45)
DX: R13.10 Dysphagia, unspecified (principal); Z12.11 Encounter for screening for malignant neoplasm of colon; Z86.010 Personal history of colon polyps; D12.5 Benign neoplasm of sigmoid colon; D12.4 Benign neoplasm of descending colon; D12.3 Benign neoplasm of transverse colon; D12.2 Benign neoplasm of ascending colon; K29.70 Gastritis, unspecified, without bleeding; K57.30 Diverticulosis of large intestine without perforation or abscess without bleeding; K22.2 Esophageal obstruction; J44.9 Chronic obstructive pulmonary disease, unspecified; E11.9 Type 2 diabetes mellitus without complications; G47.30 Sleep apnea, unspecified; E66.9 Obesity, unspecified; Z68.35 Body mass index [BMI] 35.0-35.9, adult; Z79.4 Long term (current) use of insulin; I25.2 Old myocardial infarction; Z79.01 Long term (current) use of anticoagulants; Z79.899 Other long term (current) drug therapy
CPT/HCPCS: 82947; 88305; 88313; 88342; A9270; J2250; J2370; J2704; J3010; J7120

== ENCOUNTER 2022-11-22 04:03 | Day surgery (SDC) | payer OTHER ==
[~2022-11-22 04:03] MED LIST changes: +ELIQUIS2.5 MG PO
== END 2022-11-22 22:43 | disposition home or self-care (01) ==
LOC: WOUND 04:03
DX: E11.621 Type 2 diabetes mellitus with foot ulcer (principal); L97.512 Non-pressure chronic ulcer of other part of right foot with fat layer exposed; I87.2 Venous insufficiency (chronic) (peripheral); F17.210 Nicotine dependence, cigarettes, uncomplicated; I70.203 Unspecified atherosclerosis of native arteries of extremities, bilateral legs; E11.51 Type 2 diabetes mellitus with diabetic peripheral angiopathy without gangrene
CPT/HCPCS: 87070; 87075; 87205; 99406; A9270; G0463

== ENCOUNTER 2022-11-29 02:04 | Day surgery (SDC) | payer OTHER | END 2022-11-29 22:38 | disposition home or self-care (01) | LOC: WOUND 02:04 | DX: E11.621 Type 2 diabetes mellitus with foot ulcer (principal); L97.512 Non-pressure chronic ulcer of other part of right foot with fat layer exposed; S91.104A Unspecified open wound of right lesser toe(s) without damage to nail, initial encounter; L03.115 Cellulitis of right lower limb; I70.203 Unspecified atherosclerosis of native arteries of extremities, bilateral legs; R77.0 Abnormality of albumin; F17.209 Nicotine dependence, unspecified, with unspecified nicotine-induced disorders | CPT/HCPCS: 99406; A9270; G0463 ==

== ENCOUNTER 2022-12-05 10:59 | Day surgery (SDC) | payer OTHER ==
[~2022-12-05 10:59] MED LIST changes: +KAPSPARGO SPRI100 MG PO; -METO50ER PO
[2022-12-05] MEDS ORDERED: TRAZ100 PO (12:24)
[2022-12-05] MEDS ORDERED: OZEMPIC0.25 MG/0. SQ (12:25)
--- NOTE | 2022-12-05 18:08 | NUR ---
1615 PATIENT RETURNED FROM THE CATHLAB VIA BED TO THE RECOVERY ROOM WITH LEFT GROIN ANGIOSEAL AFTER PVI INTERVENTION TO THE RIGHT LOWER EXTREMITY. NO HEMATOMA, NO BLEEDING TO THE LEFT GROIN NOTED.
--- NOTE | 2022-12-05 18:11 | NUR ---
1700 DINNER TRAY SERVED. PATIENT ASSISTED WITH SITTING UP IN THE BED AND EATING MEAL.
--- NOTE | 2022-12-05 18:11 | NUR ---
1755 PIV REMOVED. PATIENT ASSISTED TO SITTING UP ON HTE SIDE OF THE BED AND DRESSING SELF. SON ARRIVED AND PATIENT VOIDED. LEFT GROIN SITE CHECKED BY RNA DN PATIENT DRESSED AND TRANSFERED TO THE WHEELCHAIR AND REVIEWED DISCHARGE INSTRUCTIONS WITH THE PATIENT AND SON.
--- NOTE | 2022-12-05 18:21 | NUR ---
1821PATEINT DISCHARGED HOME IN HIS OWN WHEELCHAIR WITH ALL BELONGINGS AND DISCHARGE INSTRUCTIONS.
== END 2022-12-05 23:01 | disposition home or self-care (01) ==
LOC: MHTC 10:59
DX: E11.51 Type 2 diabetes mellitus with diabetic peripheral angiopathy without gangrene (principal); I70.221 Atherosclerosis of native arteries of extremities with rest pain, right leg; I25.10 Atherosclerotic heart disease of native coronary artery without angina pectoris; I25.2 Old myocardial infarction; E78.5 Hyperlipidemia, unspecified; Z89.512 Acquired absence of left leg below knee; Z86.73 Personal history of transient ischemic attack (TIA), and cerebral infarction without residual deficits; F17.210 Nicotine dependence, cigarettes, uncomplicated; Z79.4 Long term (current) use of insulin
CPT/HCPCS: 37228; 75625; 75716; 75774; 76937; 99152; 99153; C1725; C1760; C1769; C1887; C1894; C9772; J1644; J2250; J3010; J7030; J7050; Q9967

== ENCOUNTER → 2022-12-11 | Outpatient (CLI) | payer OTHER ==
[~2022-12-11] MED LIST changes: +OZEMPIC0.25 MG/0. SQ; +TRAZ100 PO
== END ==
LOC: LAB SHORT 14:42 → LAB 14:42
DX: E11.621 Type 2 diabetes mellitus with foot ulcer (principal)
CPT/HCPCS: 87070; 87075; 87077; 87186; 87205

== ENCOUNTER 2023-04-03 10:15 | Day surgery (SDC) | payer OTHER ==
--- NOTE | 2023-04-03 11:17 | NUR ---
04/03/23 Cassandra Allen PROCEDURE CANCELLED BY DR DOMONIQUE URIBE, DUE TO PT DRINKING PROTEIN DRINK AT 0830.
== END 2023-04-03 11:15 | disposition home or self-care (01) ==
LOC: ORSCSDS 10:15
DX: I96 Gangrene, not elsewhere classified (principal); E11.42 Type 2 diabetes mellitus with diabetic polyneuropathy; Z79.4 Long term (current) use of insulin; Z53.8 Procedure and treatment not carried out for other reasons
CPT/HCPCS: J0690; J2001; J2795; J7120

== ENCOUNTER 2023-06-06 03:08 | Day surgery (SDC) | payer OTHER | END 2023-06-06 22:39 | disposition home or self-care (01) | LOC: WOUND 03:08 | DX: E11.621 Type 2 diabetes mellitus with foot ulcer (principal); L97.512 Non-pressure chronic ulcer of other part of right foot with fat layer exposed; Z89.421 Acquired absence of other right toe(s); E11.40 Type 2 diabetes mellitus with diabetic neuropathy, unspecified; L03.115 Cellulitis of right lower limb; E11.51 Type 2 diabetes mellitus with diabetic peripheral angiopathy without gangrene; I70.203 Unspecified atherosclerosis of native arteries of extremities, bilateral legs; R77.0 Abnormality of albumin; F17.209 Nicotine dependence, unspecified, with unspecified nicotine-induced disorders | CPT/HCPCS: 99406; G0463 ==

== ENCOUNTER 2023-06-13 04:29 | Day surgery (SDC) | payer OTHER | END 2023-06-13 22:56 | disposition home or self-care (01) | LOC: WOUND | DX: T87.89 Other complications of amputation stump (principal); E11.51 Type 2 diabetes mellitus with diabetic peripheral angiopathy without gangrene; I70.25 Atherosclerosis of native arteries of other extremities with ulceration; L97.519 Non-pressure chronic ulcer of other part of right foot with unspecified severity; E11.40 Type 2 diabetes mellitus with diabetic neuropathy, unspecified; L03.115 Cellulitis of right lower limb; F17.200 Nicotine dependence, unspecified, uncomplicated; R77.0 Abnormality of albumin; Z89.422 Acquired absence of other left toe(s); Y83.5 Amputation of limb(s) as the cause of abnormal reaction of the patient, or of later complication, without mention of misadventure at the time of the procedure | CPT/HCPCS: 99406; A9270 ==

== ENCOUNTER 2023-06-21 01:13 | Day surgery (SDC) | payer OTHER | END 2023-06-21 23:05 | disposition home or self-care (01) | LOC: WOUND 01:13 | DX: E11.621 Type 2 diabetes mellitus with foot ulcer (principal); L97.519 Non-pressure chronic ulcer of other part of right foot with unspecified severity; Z89.421 Acquired absence of other right toe(s); E11.40 Type 2 diabetes mellitus with diabetic neuropathy, unspecified; L03.115 Cellulitis of right lower limb; E11.51 Type 2 diabetes mellitus with diabetic peripheral angiopathy without gangrene; I70.203 Unspecified atherosclerosis of native arteries of extremities, bilateral legs; R77.0 Abnormality of albumin; F17.209 Nicotine dependence, unspecified, with unspecified nicotine-induced disorders | CPT/HCPCS: G0463 ==

== ENCOUNTER 2023-07-04 04:01 | Day surgery (SDC) | payer OTHER | END 2023-07-04 23:18 | disposition home or self-care (01) | LOC: WOUND 04:01 | DX: E11.621 Type 2 diabetes mellitus with foot ulcer (principal); L97.509 Non-pressure chronic ulcer of other part of unspecified foot with unspecified severity; E11.40 Type 2 diabetes mellitus with diabetic neuropathy, unspecified; L03.115 Cellulitis of right lower limb; E11.51 Type 2 diabetes mellitus with diabetic peripheral angiopathy without gangrene; I70.203 Unspecified atherosclerosis of native arteries of extremities, bilateral legs; R77.0 Abnormality of albumin; F17.209 Nicotine dependence, unspecified, with unspecified nicotine-induced disorders; Z89.421 Acquired absence of other right toe(s) | CPT/HCPCS: G0463 ==

== ENCOUNTER 2023-08-01 01:39 | Day surgery (SDC) | payer OTHER | END 2023-08-01 22:49 | disposition home or self-care (01) | LOC: WOUND 01:39 | DX: E11.621 Type 2 diabetes mellitus with foot ulcer (principal); L97.512 Non-pressure chronic ulcer of other part of right foot with fat layer exposed; Z89.421 Acquired absence of other right toe(s); E11.40 Type 2 diabetes mellitus with diabetic neuropathy, unspecified; L03.115 Cellulitis of right lower limb; E11.51 Type 2 diabetes mellitus with diabetic peripheral angiopathy without gangrene; I70.203 Unspecified atherosclerosis of native arteries of extremities, bilateral legs; R77.0 Abnormality of albumin; F17.209 Nicotine dependence, unspecified, with unspecified nicotine-induced disorders | CPT/HCPCS: G0463 ==

== ENCOUNTER 2023-08-08 02:09 | Day surgery (SDC) | payer OTHER | END 2023-08-08 22:37 | disposition home or self-care (01) | LOC: WOUND 02:09 | DX: E11.621 Type 2 diabetes mellitus with foot ulcer (principal); L97.512 Non-pressure chronic ulcer of other part of right foot with fat layer exposed; Z89.421 Acquired absence of other right toe(s); E11.40 Type 2 diabetes mellitus with diabetic neuropathy, unspecified; L03.115 Cellulitis of right lower limb; E11.51 Type 2 diabetes mellitus with diabetic peripheral angiopathy without gangrene; I70.203 Unspecified atherosclerosis of native arteries of extremities, bilateral legs; F17.209 Nicotine dependence, unspecified, with unspecified nicotine-induced disorders | CPT/HCPCS: G0463 ==

== ENCOUNTER 2023-08-22 08:00 | Day surgery (SDC) | payer OTHER | END 2023-08-22 23:59 | disposition home or self-care (01) | LOC: WOUND 08:00 | DX: Z09 Encounter for follow-up examination after completed treatment for conditions other than malignant neoplasm (principal); Z89.421 Acquired absence of other right toe(s); E11.40 Type 2 diabetes mellitus with diabetic neuropathy, unspecified; F17.209 Nicotine dependence, unspecified, with unspecified nicotine-induced disorders | CPT/HCPCS: G0463 ==

== ENCOUNTER 2023-10-15 11:49 | Emergency (ER) | payer OTHER ==
[~2023-10-15] VITALS: Ht 177.8 cm; Wt 113.4 kg
[2023-10-15 12:27] LABS: BASOPHILS ABSOLUTE AUTO 0.04 K/mm3 (0.00-0.23); BASOPHILS PERCENT AUTO 1 % (0-2); EOSINOPHILS PERCENT AUTO 2 % (0-6); Hematocrit 41.7 % (37.0-53.0); Hemoglobin 14.2 g/dL (13.5-17.5); IMMATURE GRAN ABSOLUTE AUTO 0.05 K/mm3 (0.00-0.10); IMMATURE GRAN PERCENT AUTO 1 % (0-1); LYMPHOCYTES ABSOLUTE AUTO 1.56 K/mm3 (0.84-5.20); LYMPHOCYTES PERCENT AUTO 25 % (21-46); MONOCYTES ABSOLUTE AUTO 0.42 K/mm3 (0.16-1.47); MONOCYTES PERCENT AUTO 7 % (4-13); Mean Corpuscular HGB 35.3 pg (26.0-34.0); Mean Corpuscular HGB Conc 34.1 g/dL (31.5-36.5); Mean Corpuscular Volume 104 fL (80-100); Mean Platelet Volume 11.5 fL (9.1-12.4); NEUTROPHILS ABSOLUTE AUTO 4.01 K/mm3 (1.96-9.15); NEUTROPHILS PERCENT AUTO 65 % (41-73); Platelet Count 145 K/mm3 (150-400); RDW Coefficient Variation 12.6 % (11.7-14.2); RDW Standard Deviation 47.4 fL (35.1-46.3); Red Blood Cell Count 4.02 M/mm3 (4.30-5.90); White Blood Cell Count 6.18 K/mm3 (4.00-11.30)
[2023-10-15 12:39] LABS: Albumin, Blood 3.1 g/dL (3.4-5.0); Albumin/Globulin Ratio 0.7 (0.8-1.8); Bilirubin, Total 0.3 mg/dL (0.1-1.0); Bun/Creatinine Ratio 23.1 (12.0-20.0); Calcium, Blood 8.7 mg/dL (8.5-10.1); Creatinine, Blood 0.87 mg/dL (0.60-1.20); Globulin, Blood 4.2 g/dL (2.2-4.0); Magnesium, Blood 1.8 mg/dL (1.6-2.4); Potassium, Blood 4.6 mmol/L (3.5-5.5); Total Protein, Blood 7.3 g/dL (6.4-8.2)
[2023-10-15 13:01] LABS: Source, Urine Straight Cath
[2023-10-15 13:13] LABS: Appearance, Urine Clear (Clear); Bilirubin, Urine Neg (Neg); Blood, Urine Neg (Neg); Color, Urine Yellow (P-Yellow); Glucose Qualitative, Urine 3+ (Neg); Ketones, Urine Neg (Neg); Leukocyte Esterase, Urine Neg (Neg); Nitrite, Urine Neg (Neg); Protein, Urine Neg (Neg); Specific Gravity, Urine 1.015 (1.003-1.022); Urobilinogen, Urine NORM (Normal); pH, Urine 6.5 (5.0-8.0)
[2023-10-15] MEDS ORDERED: Aspir 8181 MG PO (13:55)
[2023-10-15 17:30] VITALS: BP 159/75
== END 2023-10-15 17:44 | disposition home or self-care (01) ==
LOC: ER 11:49
PROVIDERS: Student in an Organized Health Care Education/Training Program
DX: R53.1 Weakness (principal); R47.1 Dysarthria and anarthria; I69.351 Hemiplegia and hemiparesis following cerebral infarction affecting right dominant side; E11.9 Type 2 diabetes mellitus without complications; Z79.4 Long term (current) use of insulin; Z79.01 Long term (current) use of anticoagulants; Z79.899 Other long term (current) drug therapy
CPT/HCPCS: 70450; 71045; 80053; 81003; 83735; 85025; 93005; 93010; 99285-25; A9270

== ENCOUNTER 2025-02-13 09:10 | Emergency (ER) | payer OTHER ==
[~2025-02-13] VITALS: Ht 177.8 cm; Wt 158.8 kg
[~2025-02-13 09:10] MED LIST changes: +Aspir 8181 MG PO
[2025-02-13] MEDS ORDERED: Aspirin 325 MG Tab PO ONE (09:30)
[2025-02-13 10:00] LABS: BASOPHILS ABSOLUTE AUTO 0.05 K/mm3 (0.00-0.23); BASOPHILS PERCENT AUTO 1 % (0-2); EOSINOPHILS PERCENT AUTO 2 % (0-6); Hematocrit 41.3 % (37.0-53.0); Hemoglobin 14.1 g/dL (13.5-17.5); IMMATURE GRAN ABSOLUTE AUTO 0.06 K/mm3 (0.00-0.10); IMMATURE GRAN PERCENT AUTO 1 % (0-1); LYMPHOCYTES ABSOLUTE AUTO 1.99 K/mm3 (0.84-5.20); LYMPHOCYTES PERCENT AUTO 30 % (21-46); MONOCYTES ABSOLUTE AUTO 0.48 K/mm3 (0.16-1.47); MONOCYTES PERCENT AUTO 7 % (4-13); Mean Corpuscular HGB 36.1 pg (26.0-34.0); Mean Corpuscular HGB Conc 34.1 g/dL (31.5-36.5); Mean Corpuscular Volume 106 fL (80-100); Mean Platelet Volume 12.1 fL (9.1-12.4); NEUTROPHILS ABSOLUTE AUTO 4.01 K/mm3 (1.96-9.15); NEUTROPHILS PERCENT AUTO 60 % (41-73); Platelet Count 122 K/mm3 (150-400); RDW Standard Deviation 49.8 fL (35.1-46.3); Red Blood Cell Count 3.91 M/mm3 (4.30-5.90); White Blood Cell Count 6.69 K/mm3 (4.00-11.30)
[2025-02-13 10:15] LABS: Bun/Creatinine Ratio 18.3 (12.0-20.0); Calcium, Blood 8.3 mg/dL (8.5-10.1); Creatinine, Blood 1.04 mg/dL (0.60-1.20); Magnesium, Blood 1.8 mg/dL (1.6-2.4); Potassium, Blood 4.5 mmol/L (3.5-5.5)
[2025-02-13] MEDS ORDERED: Furosemide 10 MG/ML 4ML Vial IV ONE (11:55)
[2025-02-13] MEDS ORDERED: FURO20 PO (12:08)
[2025-02-13] MEDS ORDERED: ACET500 PO (12:08)
[2025-02-13 13:17] VITALS: BP 106/85
== END 2025-02-13 13:18 | disposition home or self-care (01) ==
LOC: ER 09:10
PROVIDERS: Emergency Medicine
DX: R07.2 Precordial pain (principal); R09.89 Other specified symptoms and signs involving the circulatory and respiratory systems; E11.9 Type 2 diabetes mellitus without complications; F17.200 Nicotine dependence, unspecified, uncomplicated; Z88.8 Allergy status to other drugs, medicaments and biological substances; Z79.899 Other long term (current) drug therapy; Z79.4 Long term (current) use of insulin; Z79.01 Long term (current) use of anticoagulants; Z79.82 Long term (current) use of aspirin
CPT/HCPCS: 71045; 80048; 83735; 83880; 84484; 85025; 93005; 93010; 96374; 99285-25; J1940

== ENCOUNTER 2025-02-19 08:32 | Inpatient (IN) | payer OTHER ==
[~2025-02-19] VITALS: Ht 177.8 cm; Wt 124.7 kg
[~2025-02-19 08:32] MED LIST changes: +ACET500 PO
[2025-02-19 09:25] LABS: BASOPHILS ABSOLUTE AUTO 0.04 K/mm3 (0.00-0.23); BASOPHILS PERCENT AUTO 1 % (0-2); EOSINOPHILS PERCENT AUTO 2 % (0-6); Hematocrit 40.4 % (37.0-53.0); IMMATURE GRAN ABSOLUTE AUTO 0.03 K/mm3 (0.00-0.10); IMMATURE GRAN PERCENT AUTO 1 % (0-1); LYMPHOCYTES ABSOLUTE AUTO 2.01 K/mm3 (0.84-5.20); LYMPHOCYTES PERCENT AUTO 32 % (21-46); MONOCYTES ABSOLUTE AUTO 0.62 K/mm3 (0.16-1.47); MONOCYTES PERCENT AUTO 10 % (4-13); Mean Corpuscular HGB 36.1 pg (26.0-34.0); Mean Corpuscular HGB Conc 34.7 g/dL (31.5-36.5); Mean Corpuscular Volume 104 fL (80-100); Mean Platelet Volume 11.6 fL (9.1-12.4); NEUTROPHILS ABSOLUTE AUTO 3.46 K/mm3 (1.96-9.15); NEUTROPHILS PERCENT AUTO 55 % (41-73); Platelet Count 111 K/mm3 (150-400); RDW Coefficient Variation 12.8 % (11.7-14.2); RDW Standard Deviation 48.3 fL (35.1-46.3); Red Blood Cell Count 3.88 M/mm3 (4.30-5.90); White Blood Cell Count 6.26 K/mm3 (4.00-11.30)
[2025-02-19 10:02] LABS: Albumin/Globulin Ratio 0.8 (0.8-1.8); Bilirubin, Total 0.5 mg/dL (0.1-1.0); Bun/Creatinine Ratio 20.8 (12.0-20.0); Calcium, Blood 7.9 mg/dL (8.5-10.1); Creatinine, Blood 1.06 mg/dL (0.60-1.20); Globulin, Blood 3.8 g/dL (2.2-4.0); Magnesium, Blood 1.8 mg/dL (1.6-2.4); Potassium, Blood 3.8 mmol/L (3.5-5.5); Total Protein, Blood 6.8 g/dL (6.4-8.2)
[2025-02-19] MEDS ORDERED: Furosemide 10 MG/ML 4ML Vial IV ONE (10:15)
[2025-02-19] MEDS ORDERED: OxyCODONE HCL 5 MG TAB PO PRN (11:45)
[2025-02-19 13:59] VITALS: BP 99/44
[2025-02-19] MEDS ORDERED: METO25ER PO (14:15)
[2025-02-19] MEDS ORDERED: OXYC15ER PO (14:16)
[2025-02-19] MEDS ORDERED: METF500C PO (14:18)
[2025-02-19] MEDS ORDERED: INSULANPEN SC (14:19)
[2025-02-19] MEDS ORDERED: TRAZ50 PO (14:19)
[2025-02-19] MEDS ORDERED: NOVOLOG100 UNIT/2 SC (14:22)
--- NOTE | 2025-02-19 14:28 | NUR ---
ADMISSION NOTE: PATIENT ARRIVED TO THE UNIT VIA GURNEY AT 1400; WAS TRANSFERRED ON TO THE BED. PATIENT SETTLED IN ROOM, CALL LIGHT PROVIDED, SET UP ON TELE, VITALS OBTAINED. PATIENT IN BED, CALL IGHT WITHIN REACH, NO SIGNS OR SYMPTOMS OF DISTRESS, PLAN OF CARE ONGOING.
[2025-02-19 14:38] LABS: Influenza A, PCR NEGATIVE (NEGATIVE); Influenza B, PCR NEGATIVE (NEGATIVE); Resp Syncytial Virus, PCR NEGATIVE (NEGATIVE); SARS-Cov-2 (COVID-19) PCR, MMC NEGATIVE (NEGATIVE)
[2025-02-19 14:49] VITALS: BP 117/62
[2025-02-19 15:38] VITALS: BP 111/52
--- NOTE | 2025-02-19 15:53 | NUR ---
TELE CALLED AND REPORTED THAT THE THEY WERE GETTING AN ASYSTOLE ALARM. WENT AND CHECKED ON PATIENT; HE WAS ALERT, LYING ON HIS LEFT SIDE; REPORTED HE FELT FINE, VITALS OBTAINED AND STABLE. DR. DRAKE NOTIFIED.
[2025-02-19] MEDS ORDERED: Insulin Human Lispro 100 Units/ML 3ML Syringe SC SCH (16:30)
--- NOTE | 2025-02-19 17:16 | NUR ---
TELE CALLED 1701 TO REPORT THAT PATIENT HAD ANOTHER ASYSTOLE ALARM; PATIENT ASSESSED WAS SITTING UP ALERT WATCHING TV; LOOKING AT THIS RN; PATIENT STATUS UNCHANGED. CALLED DR. DRAKE; PER DR. DRAKE TO ORDER A STAT PACER INTERGATION STUDY.
--- NOTE | 2025-02-19 17:27 | NUR ---
SHIFT SUMMARY: PATIENT IN BED, CALL LIGHT WITHIN REACH, PLEASANT AND COOPERATIVE WITH CARE, STATES THAT HE DOESN'T FEEL WELL SINCE YESTERDAY MORNING. SEE NURSE NOTES ON TELE EVENTS. PATIENT ALERT, SITTING UP IN BED, NO SIGNS OR SYMPTOMS OF DISTRESS, PLAN OF CARE ONGOING.
--- NOTE | 2025-02-19 18:28 | NUR ---
REYNA FROM [employer] CALLED THE THE PACER MAKER INTERROGATION RESULTS. PACERMAKER WAS PLACED 09/28/2010. ON 02/09/25 REPLACEMENT INDICATOR CAME ON-PACER IS FIRING AT BOTTOM OF CHAMBERS AT 65 BEATS PER MINUTE AND ONLY HAVING PACED BEATS 0.8% OF THE TIME PER PROGRAMING. SINCE 02/09/25 WHEN THE REPLACEMENT INDICATOR CAME ON THE PATIENT HAS A 3 MONTH SAFETY REGULATOR. NOTIFIED REYNA THAT THE PATIENT IS HAVING ASYSTOLE EVENTS. PER REYNA SHE WOULD LIKE TO SEE WHAT TELEMETRY IS SEEING. CALL MADE TO DEUCE SHORT RN IN PCU AND RELAYED THIS INFORMATION.
[2025-02-19 19:59] VITALS: BP 119/63
--- NOTE | 2025-02-19 20:19 | NUR ---
DURING SHIFT CHANGE/BEDSIDE REPORT WITH THE DAY SHIFT NURSE, PT REPORTS SQUISHING CHEST PAIN THAT HE DESCRIBES 6/10 IN PAIN SCALE. PT REPORTS THAT IT STARTED ABOUT AN HOUR PRIOR, AND HE DID NOT REPORT THIS TO THE DAY SHIFT NURSE. THIS DISPLAY FABRICATION SUPERVISOR CALLED N[facility]/ON-CALL HOSPITALIST DURING SHIFT CHANGE. VS:119/63, P.65, O2 CONTINUOUS MONITORIN-95% ON RA. PT DENIES SOB. TELE: V-PACED @65. NEW T-ORDER: EKG NOW. THIS DISPLAY FABRICATION SUPERVISOR CALLED [facility]/ON-CALL HOSPITALIST WITH RESULTS @2019: NEW T-ORDERS: TROPONIN LAB NOW AND TROPONIN REPEAT LAB @2229. SUBSTATION OPERATOR TRANSFORMING ANMOL BY THE BEDSIDE WITH THIS DISPLAY FABRICATION SUPERVISOR. CHARGE NURSE ORTEGA NOTIFIED @2024. @2025 PT REPORTS PAIN IN THE CHEST IS DECREASING. PT HAS A PACEMAKER AND TELE MONITOR. PER PAYER SPECIALIST REPORT V-PACED @65 @2014.
[2025-02-19] MEDS ORDERED: Prazosin HCL 5 MG Cap PO SCH (21:00)
[2025-02-19] MEDS ORDERED: Apixaban 5 MG Tab PO SCH (21:00)
[2025-02-19] MEDS ORDERED: Insulin Glargine-Yfgn 100 Unit/mL 3 ML SYR SC SCH (21:00)
[2025-02-20 00:23] VITALS: BP 100/48
[2025-02-20 02:51] VITALS: BP 112/91
--- NOTE | 2025-02-20 04:23 | NUR ---
SHIFT SUMMARY @THE BEGINNING OF THIS SHIFT, DURING THE BEDSIDE REPORT WITH THE DAY SHIFT NURSE, PT C/O CHEST PAIN (SEE PREVIOUS NOTE). ON-CALL HOSPITALIST WAS CONTACTED AND ORDER FOR EKG STAT RECEIVED. RESULTS WERE CALLED BACK TO THE ON-CALL HOSPITALIST. TROPONIN STAT AND REPEAT THREE HRS LATER WERE ORDERED. RESULTS 12&11. PT C/O CHRONIC BACK PAIN, MEDICATED PER EMAR WITH GOOD EFFECTIVNESS. APPROXIMATELY 0200, PT C/O SOB. CONTINUOUS PULSE OXIMETER IN PLACE, PT'S O2 SAT'S>95% ON RA. PT WAS PUT ON 3L VIA NC, AND MEDICATED FOR BACK PAIN. SOME ANXIETY NOTED, PT DENIED A NEED FOR ANTI-ANXIETY MEDICATION. HS B, 40 UNITS OF GLARGINE WAS ADMINISTERED WITH A SNACK. (PT REPORTS TAKES 45U OF GLARGINE @HOME SETTING). TELE: V-PACED @65. @0430 PT RESTING W/O ACUTE DISTRESS. CUTTER OPERATOR WAS NOTIFIED OF THE EVENTS DURING THIS SHIFT. BED AT THE LOWEST POSITION, CALL LIGHT W/I REACH. PT IS A/O X4, PLEASANT AND COOPERATIVE WITH CARE. PT IS ABLE TO MAKE HIS NEEDS KNOWN.
[2025-02-20] MEDS ORDERED: Omeprazole 20 MG CapCR PO SCH (06:00)
[2025-02-20 08:05] VITALS: BP 112/56
[2025-02-20] MEDS ORDERED: Aspirin 81 MG Chew PO SCH (09:00)
[2025-02-20] MEDS ORDERED: Metoprolol Succinate 25 MG TABCR PO SCH (09:00)
[2025-02-20] MEDS ORDERED: Furosemide 10 MG/ML 4ML Vial IV SCH (09:00)
[2025-02-20] MEDS ORDERED: Citalopram Hydrobromide 20 MG Tab PO SCH (09:00)
[2025-02-20] MEDS ORDERED: Amiodarone HCl 200 MG Tab PO SCH (09:00)
[2025-02-20] MEDS ORDERED: Atorvastatin 40 MG Tab PO SCH (09:00)
[2025-02-20 09:35] LABS: BASOPHILS ABSOLUTE AUTO 0.05 K/mm3 (0.00-0.23); BASOPHILS PERCENT AUTO 1 % (0-2); EOSINOPHILS ABSOLUTE AUTO 0.09 K/mm3 (0.00-0.68); EOSINOPHILS PERCENT AUTO 1 % (0-6); Hematocrit 42.5 % (37.0-53.0); Hemoglobin 14.5 g/dL (13.5-17.5); IMMATURE GRAN ABSOLUTE AUTO 0.05 K/mm3 (0.00-0.10); IMMATURE GRAN PERCENT AUTO 1 % (0-1); LYMPHOCYTES ABSOLUTE AUTO 2.31 K/mm3 (0.84-5.20); LYMPHOCYTES PERCENT AUTO 33 % (21-46); MONOCYTES ABSOLUTE AUTO 0.59 K/mm3 (0.16-1.47); MONOCYTES PERCENT AUTO 9 % (4-13); Mean Corpuscular HGB 35.9 pg (26.0-34.0); Mean Corpuscular HGB Conc 34.1 g/dL (31.5-36.5); Mean Corpuscular Volume 105 fL (80-100); Mean Platelet Volume 11.7 fL (9.1-12.4); NEUTROPHILS ABSOLUTE AUTO 3.86 K/mm3 (1.96-9.15); NEUTROPHILS PERCENT AUTO 56 % (41-73); Platelet Count 125 K/mm3 (150-400); RDW Coefficient Variation 12.7 % (11.7-14.2); RDW Standard Deviation 48.8 fL (35.1-46.3); Red Blood Cell Count 4.04 M/mm3 (4.30-5.90); White Blood Cell Count 6.95 K/mm3 (4.00-11.30)
[2025-02-20 10:10] LABS: Bun/Creatinine Ratio 21.5 (12.0-20.0); Calcium, Blood 8.5 mg/dL (8.5-10.1); Creatinine, Blood 1.07 mg/dL (0.60-1.20); Potassium, Blood 3.9 mmol/L (3.5-5.5)
--- NOTE | 2025-02-20 16:01 | NUR ---
SHIFT SUMMARY PATIENT IN BED THIS SHIFT. ABLE TO TURN ADEQUATELY. XLG BM THIS SHIFT USING BEDPAN. USING URINAL IN BED. TELE LEADS ADJUSTED, SIGNIFICANTLY LESS ALARMS THAN PREVIOUS SHIFT REPORTED. PATIENT ON ROOM AIR MOST OF SHIFT, SATING 92-94% ON CONTINUOUS PULSE OX. STATING THAT HE "FEELS BETTER" AND FEELS LIKE HE CAN BREATHE EASIER. EATING AND DRINKING WELL. ABLE TO MAKE NEEDS KNOWN. CALL LIGHT IN REACH, CARES ONGOING.
[2025-02-20 16:29] VITALS: BP 132/82
[2025-02-20 20:38] VITALS: BP 129/66
[2025-02-21 00:30] VITALS: BP 100/75
[2025-02-21 03:47] VITALS: BP 107/68
--- NOTE | 2025-02-21 06:16 | NUR ---
SHIFT SUMMARY PT HAS BEEN RESTING IN BED COMFORTABLY OVERNIGHT. PT HAS BEEN AOX4, CALM AND COOPERATIVE. 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 PT HAS BEEN ON RA TO 3LNC, NEEDED. HE HAS ALSO BEEN ON BIPAP FOR MOST OF THE NIGHT. WITHOUT O2, PT HAS COMPLAINED OF SHORTNESS OF BREATH, BUT DOES NOT DESATURATE. PT HAS ALSO COMPLAINED OF CHRONIC BACK PAIN. OTHERWISE, NO COMPLAINTS FROM PT. NO ACUTE EVENTS OVERNIGHT.
[2025-02-21 07:05] LABS: BASOPHILS ABSOLUTE AUTO 0.03 K/mm3 (0.00-0.23); BASOPHILS PERCENT AUTO 0 % (0-2); EOSINOPHILS ABSOLUTE AUTO 0.08 K/mm3 (0.00-0.68); EOSINOPHILS PERCENT AUTO 1 % (0-6); Hematocrit 41.3 % (37.0-53.0); Hemoglobin 14.2 g/dL (13.5-17.5); IMMATURE GRAN ABSOLUTE AUTO 0.06 K/mm3 (0.00-0.10); IMMATURE GRAN PERCENT AUTO 1 % (0-1); LYMPHOCYTES ABSOLUTE AUTO 2.16 K/mm3 (0.84-5.20); LYMPHOCYTES PERCENT AUTO 28 % (21-46); MONOCYTES ABSOLUTE AUTO 0.71 K/mm3 (0.16-1.47); MONOCYTES PERCENT AUTO 9 % (4-13); Mean Corpuscular HGB 36.2 pg (26.0-34.0); Mean Corpuscular HGB Conc 34.4 g/dL (31.5-36.5); Mean Corpuscular Volume 105 fL (80-100); Mean Platelet Volume 11.7 fL (9.1-12.4); NEUTROPHILS ABSOLUTE AUTO 4.81 K/mm3 (1.96-9.15); NEUTROPHILS PERCENT AUTO 61 % (41-73); Platelet Count 129 K/mm3 (150-400); RDW Coefficient Variation 12.6 % (11.7-14.2); RDW Standard Deviation 48.2 fL (35.1-46.3); Red Blood Cell Count 3.92 M/mm3 (4.30-5.90); White Blood Cell Count 7.85 K/mm3 (4.00-11.30)
[2025-02-21 07:24] LABS: Calcium, Blood 8.7 mg/dL (8.5-10.1); Creatinine, Blood 1.22 mg/dL (0.60-1.20); Potassium, Blood 3.9 mmol/L (3.5-5.5)
[2025-02-21 08:52] VITALS: BP 129/61
--- NOTE | 2025-02-21 14:38 | NUR ---
SHIFT SUMMARY PATIENT IN BED THIS SHIFT, DIURESING WELL. NO BM THIS SHIFT. PARTIAL BED BATH PROVIDED. C/O BACK PAIN IN AM, GIVEN OXY WITH GOOD RELIEF. A/O X4. ON ROOM AIR SATING 93-94%, USING CPAP WHEN SLEEPING. PATIENT'S WORK OF BREATH APPEARS LESS LABORED COMPARED TO YESTERDAY'S SHIFT. ABLE TO MAKE NEEDS KNOWN, CALL LIGHT IN REACH, CARES ONGOING.
[2025-02-21 15:36] VITALS: BP 122/66
[2025-02-21 21:00] VITALS: BP 135/72
[2025-02-22 00:30] VITALS: BP 105/58
[2025-02-22 05:36] VITALS: BP 133/62
--- NOTE | 2025-02-22 06:07 | NUR ---
SHIFT SUMMARY PT HAS BEEN RESTING COMFORTABLY OVERNIGHT. HE HAS BEEN ON BIPAP FOR MOST OF NIGHT, TOLERATING FINE. HE HAS HAD NO COMPLAINTS OF SOB. HE HAS BEEN ON TELEMETRY WELL. PT HAS BEEN BEDREST, ONLY NEEDING HELP W/ TOILETING. PT EXCELLENT WITH TURNS. PT HAS HAD NO COMPLAINTS OVERNIGHT. NO ACUTE EVENTS.
[2025-02-22 06:33] LABS: BASOPHILS ABSOLUTE AUTO 0.04 K/mm3 (0.00-0.23); BASOPHILS PERCENT AUTO 1 % (0-2); EOSINOPHILS ABSOLUTE AUTO 0.09 K/mm3 (0.00-0.68); EOSINOPHILS PERCENT AUTO 1 % (0-6); Hematocrit 43.4 % (37.0-53.0); Hemoglobin 15.2 g/dL (13.5-17.5); IMMATURE GRAN ABSOLUTE AUTO 0.05 K/mm3 (0.00-0.10); IMMATURE GRAN PERCENT AUTO 1 % (0-1); LYMPHOCYTES ABSOLUTE AUTO 2.19 K/mm3 (0.84-5.20); LYMPHOCYTES PERCENT AUTO 34 % (21-46); MONOCYTES ABSOLUTE AUTO 0.57 K/mm3 (0.16-1.47); MONOCYTES PERCENT AUTO 9 % (4-13); Mean Corpuscular HGB 36.1 pg (26.0-34.0); Mean Corpuscular Volume 103 fL (80-100); Mean Platelet Volume 11.4 fL (9.1-12.4); NEUTROPHILS ABSOLUTE AUTO 3.54 K/mm3 (1.96-9.15); NEUTROPHILS PERCENT AUTO 55 % (41-73); Platelet Count 126 K/mm3 (150-400); RDW Coefficient Variation 12.5 % (11.7-14.2); RDW Standard Deviation 46.7 fL (35.1-46.3); Red Blood Cell Count 4.21 M/mm3 (4.30-5.90); White Blood Cell Count 6.48 K/mm3 (4.00-11.30)
[2025-02-22 06:47] LABS: Bun/Creatinine Ratio 19.5 (12.0-20.0); Calcium, Blood 8.7 mg/dL (8.5-10.1); Creatinine, Blood 0.98 mg/dL (0.60-1.20); Potassium, Blood 3.6 mmol/L (3.5-5.5)
[2025-02-22 07:39] VITALS: BP 98/43
[2025-02-22 07:40] VITALS: BP 136/70
[2025-02-22 09:13] VITALS: BP 112/63
[2025-02-22] MEDS ORDERED: FURO20 PO (15:31)
--- NOTE | 2025-02-22 16:31 | NUR ---
DISCHARGE SUMMARY PT DISCHARGED HOME TO [facility] - PT SKILLED NURSING RESIDENT. DISCHARGE PACKET PROVIDED TO [facility] AMBULANCE TRANSPORTER. RN ATTEMPTED TO CONTACT [facility] TO PROVIDER REPORT, NO ANSWER - LEFT VOICEMAIL REQUESTING CALLBACK, NO CALLBACK OF THIS TIME. NO NEW RX. PT REPORTS HAVING ALL BELONGINGS. PT ABLE TO SLIDE TO WC WITH MINIMAL ASSISTANCE. IV REMOVED BY CNA2, SITE APPEARS WNL. PT HAS FOLLOW UP APPT ON 03/01/25 WITH PCP.
== END 2025-02-22 16:30 | DRG 291 ==
LOC: ER 08:32 → MEDS 11:39
PROVIDERS: Emergency Medicine; ADMIT Internal Medicine
PROC: 5A09457 Assistance with Respiratory Ventilation, 24-96 Consecutive Hours, Continuous Positive Airway Pressure (ICD-10-PCS; principal; 2025-02-19)
DX: I11.0 Hypertensive heart disease with heart failure (principal); I50.33 Acute on chronic diastolic (congestive) heart failure; J96.21 Acute and chronic respiratory failure with hypoxia; N40.0 Benign prostatic hyperplasia without lower urinary tract symptoms; J44.9 Chronic obstructive pulmonary disease, unspecified; I25.10 Atherosclerotic heart disease of native coronary artery without angina pectoris; F32.A Depression, unspecified; K21.9 Gastro-esophageal reflux disease without esophagitis; F41.9 Anxiety disorder, unspecified; Z85.46 Personal history of malignant neoplasm of prostate; E78.5 Hyperlipidemia, unspecified; I48.0 Paroxysmal atrial fibrillation; E11.51 Type 2 diabetes mellitus with diabetic peripheral angiopathy without gangrene; I71.40 Abdominal aortic aneurysm, without rupture, unspecified; E83.119 Hemochromatosis, unspecified; I71.43 Infrarenal abdominal aortic aneurysm, without rupture; F17.210 Nicotine dependence, cigarettes, uncomplicated; I34.0 Nonrheumatic mitral (valve) insufficiency; Z95.0 Presence of cardiac pacemaker; Z89.512 Acquired absence of left leg below knee; Z86.73 Personal history of transient ischemic attack (TIA), and cerebral infarction without residual deficits; Z90.49 Acquired absence of other specified parts of digestive tract; Z98.890 Other specified postprocedural states; Z79.01 Long term (current) use of anticoagulants; Z79.82 Long term (current) use of aspirin; Z79.4 Long term (current) use of insulin; Z79.84 Long term (current) use of oral hypoglycemic drugs; Z79.899 Other long term (current) drug therapy; Z88.8 Allergy status to other drugs, medicaments and biological substances
CPT/HCPCS: 0241U; 36415; 71045; 80048; 80053; 82947; 83735; 83880; 84484; 85025; 93005; 93010; 93306; 93978; 94660; 94762; 96374; 99285-25; A9270; J1815; J1940

== ENCOUNTER 2025-03-31 18:51 | Inpatient (IN) | payer OTHER ==
[~2025-03-31] VITALS: Ht 177.8 cm; Wt 135.5 kg
[2025-04-05 07:31] VITALS: BP 128/73
== END 2025-04-05 15:22 | DRG 291 ==
LOC: ER 18:51 → MEDS 22:49
PROVIDERS: ADMIT Internal Medicine
PROC: 5A09457 Assistance with Respiratory Ventilation, 24-96 Consecutive Hours, Continuous Positive Airway Pressure (ICD-10-PCS; principal; 2025-04-01)
DX: I11.0 Hypertensive heart disease with heart failure (principal); I50.33 Acute on chronic diastolic (congestive) heart failure; J96.21 Acute and chronic respiratory failure with hypoxia; J44.1 Chronic obstructive pulmonary disease with (acute) exacerbation; I25.10 Atherosclerotic heart disease of native coronary artery without angina pectoris; E11.40 Type 2 diabetes mellitus with diabetic neuropathy, unspecified; E11.65 Type 2 diabetes mellitus with hyperglycemia; F41.9 Anxiety disorder, unspecified; Z86.73 Personal history of transient ischemic attack (TIA), and cerebral infarction without residual deficits; N40.0 Benign prostatic hyperplasia without lower urinary tract symptoms; E78.5 Hyperlipidemia, unspecified; I48.0 Paroxysmal atrial fibrillation; E11.51 Type 2 diabetes mellitus with diabetic peripheral angiopathy without gangrene; G47.30 Sleep apnea, unspecified; Z85.46 Personal history of malignant neoplasm of prostate; I34.0 Nonrheumatic mitral (valve) insufficiency; Z89.512 Acquired absence of left leg below knee; I25.2 Old myocardial infarction; Z79.899 Other long term (current) drug therapy; Z79.4 Long term (current) use of insulin; Z79.82 Long term (current) use of aspirin; Z79.01 Long term (current) use of anticoagulants; Z88.8 Allergy status to other drugs, medicaments and biological substances; F17.210 Nicotine dependence, cigarettes, uncomplicated; E66.9 Obesity, unspecified; Z95.0 Presence of cardiac pacemaker; Z90.49 Acquired absence of other specified parts of digestive tract; Z98.890 Other specified postprocedural states; Z89.421 Acquired absence of other right toe(s)

== ENCOUNTER 2025-06-14 08:36 | Inpatient (IN) | payer OTHER ==
[~2025-06-14] VITALS: Ht 177.8 cm; Wt 129.0 kg
[~2025-06-14 08:36] MED LIST changes: +CITALOPRAM HBR20 M9 PO; +Celexa20 MG PO; +DOCU100 PO; +DULCOLAX400 MG/5 M PO; -ELIQUIS2.5 MG PO; +ELIQUIS5 M2 PO; +ESCI20 PO; +GABA400 PO; +INSULANPEN SC; +METF500C PO; +METO25ER PO; +NOVOLOG100 UNIT/2 SC; +ROXICODONE15 MG PO; +SENN187 PO; +TRAZ50 PO; +TRULICITY3 MG/0.5 M SC
[2025-06-14 09:24] LABS: BASOPHILS ABSOLUTE AUTO 0.04 K/mm3 (0.00-0.23); BASOPHILS PERCENT AUTO 1 % (0-2); EOSINOPHILS ABSOLUTE AUTO 0.06 K/mm3 (0.00-0.68); EOSINOPHILS PERCENT AUTO 1 % (0-6); Hematocrit 43.3 % (37.0-53.0); Hemoglobin 14.6 g/dL (13.5-17.5); IMMATURE GRAN ABSOLUTE AUTO 0.05 K/mm3 (0.00-0.10); IMMATURE GRAN PERCENT AUTO 1 % (0-1); LYMPHOCYTES ABSOLUTE AUTO 1.74 K/mm3 (0.84-5.20); LYMPHOCYTES PERCENT AUTO 28 % (21-46); MONOCYTES ABSOLUTE AUTO 0.41 K/mm3 (0.16-1.47); MONOCYTES PERCENT AUTO 7 % (4-13); Mean Corpuscular HGB Conc 33.7 g/dL (31.5-36.5); Mean Corpuscular Volume 105 fL (80-100); NEUTROPHILS ABSOLUTE AUTO 3.94 K/mm3 (1.96-9.15); NEUTROPHILS PERCENT AUTO 63 % (41-73); NRBC ABSOLUTE 0.00 K/mm3 (0.00-0.02); NRBC Auto 0.0 /100 WBC (0.0-0.2); Platelet Count 122 K/mm3 (150-400); RDW Coefficient Variation 13.4 % (11.7-14.2); RDW Standard Deviation 51.1 fL (35.1-46.3)
[2025-06-14 09:39] LABS: Alanine Aminotransfer (ALT/SGP 25.0 U/L (12-78); Albumin, Blood 2.9 g/dL (3.4-5.0); Albumin/Globulin Ratio 0.7 (0.8-1.8); Anion Gap 11.0 mmol/L (3-11); Aspartate Aminotrans (AST/SGOT 24.0 U/L (12-37); Bilirubin, Total 0.5 mg/dL (0.1-1.0); Blood Urea Nitrogen 20.0 mg/dL (8-24); CO2, Blood 23.0 mmol/L (21-32); Calcium, Blood 8.4 mg/dL (8.5-10.1); Chloride, Blood 106.0 mmol/L (98-108); Creatinine, Blood 0.89 mg/dL (0.60-1.20); Globulin, Blood 4.0 g/dL (2.2-4.0); Glucose, Blood 252.0 mg/dL (70-99); Potassium, Blood 4.1 mmol/L (3.5-5.5); Sodium, Blood 136.0 mmol/L (136-145); Total Protein, Blood 6.9 g/dL (6.4-8.2)
[2025-06-14 09:49] LABS: Magnesium, Blood 1.5 mg/dL (1.6-2.4); Phosphorus, Blood 3.1 mg/dL (2.5-4.9)
[2025-06-14] MEDS ORDERED: Magnesium Sulf 2 GM/Water 50ML 50 ML IV ONE (10:10)
[2025-06-14 16:23] VITALS: BP 112/59
[2025-06-14] MEDS ORDERED: TRULICITY4.5 MG/0.5 SC (18:15)
[2025-06-14] MEDS ORDERED: MIRALAX17 GM PO (18:20)
[2025-06-14] MEDS ORDERED: BISA5EC PO (18:21)
[2025-06-14] MEDS ORDERED: DULCOLAX400 MG/51 PO (18:22)
--- NOTE | 2025-06-14 19:07 | NUR ---
SHIFT SUMMARY- PT ADMITTED THROUGH THE ED. PT ARRIVED ON MEDICAL FLOOR LATE IN THE DAY, TELE PLACED. CALLED DR TO NOTIFY OF PT ARRIVAL, NO ORDERS FOR PT MEDS OR BIPAP, BG CHECKS ETC. PT WAS AT [facility] PRIOR TO ADMIT. CALLED [facility] TO GET MED LIST FAXED. MED LIST RECONCILLED AND MARKED COMPLETE. 2 RN SKIN CHECK COMPLETED, PT HAS A RED AREA THAT IS MOIST AND MALODOROUS ON THE LEFT SIDE OF HIS CHEST IN THE FOLD OF SKIN THERE. CLEANED AND DRIED AND APPLIED BABY POWDER. ADMIT ASSESSMENT COMPLETED, ADMISSION Hx NOT YET COMPLETED, PASSED ON TO NIGHT RN IN BEDSIDE REPORT. PT IS A SLIDE BOARD TRANSFER AT BASELINE R/T L BKA.
[2025-06-14 19:17] VITALS: BP 135/72
[2025-06-14] MEDS ORDERED: Insulin Glargine-Yfgn 100 Unit/mL 3 ML SYR SC SCH (21:00)
[2025-06-14] MEDS ORDERED: Heparin Sodium,Porcine 5,000 UNIT/0.5 ML SDV SC SCH (21:00)
[2025-06-14] MEDS ORDERED: Insulin Human Lispro 100 Units/ML 3ML Syringe SC SCH (21:00)
[2025-06-14 23:45] VITALS: BP 128/75
[2025-06-15] VITALS (15 sets, daily range): BP systolic 105–135; BP diastolic 56–103
--- NOTE | 2025-06-15 04:47 | NUR ---
PT A&O X4, VS WNL, CBG AT HS 259 PT RECIEVED LONG ACTING AND SSI. PT WITH O2 @ 2L/NC WHEN AWAKE AND THEN BIPAP WITH O2 AT NIGHT. OUPUT ABOVE AVERAGE AFTER IVP LASIX. TELE IS VPACED AT 65. NO EDEMA NOTED, PT STATES HE FEELS BETTER. PO INTAKE IS WNL. USES CALL SYSTEM APPROPRIATELY. PLAN TO RETURN TO [facility] AT D/C.
[2025-06-15 05:55] LABS: BASOPHILS ABSOLUTE AUTO 0.04 K/mm3 (0.00-0.23); BASOPHILS PERCENT AUTO 1 % (0-2); EOSINOPHILS ABSOLUTE AUTO 0.04 K/mm3 (0.00-0.68); EOSINOPHILS PERCENT AUTO 1 % (0-6); Hematocrit 40.0 % (37.0-53.0); Hemoglobin 13.9 g/dL (13.5-17.5); IMMATURE GRAN ABSOLUTE AUTO 0.03 K/mm3 (0.00-0.10); IMMATURE GRAN PERCENT AUTO 1 % (0-1); LYMPHOCYTES ABSOLUTE AUTO 2.21 K/mm3 (0.84-5.20); LYMPHOCYTES PERCENT AUTO 34 % (21-46); MONOCYTES ABSOLUTE AUTO 0.43 K/mm3 (0.16-1.47); MONOCYTES PERCENT AUTO 7 % (4-13); Mean Corpuscular HGB Conc 34.8 g/dL (31.5-36.5); Mean Corpuscular Volume 102 fL (80-100); NEUTROPHILS ABSOLUTE AUTO 3.78 K/mm3 (1.96-9.15); NEUTROPHILS PERCENT AUTO 58 % (41-73); NRBC ABSOLUTE 0.00 K/mm3 (0.00-0.02); NRBC Auto 0.0 /100 WBC (0.0-0.2); Platelet Count 129 K/mm3 (150-400); RDW Coefficient Variation 13.2 % (11.7-14.2); RDW Standard Deviation 49.1 fL (35.1-46.3)
[2025-06-15 06:51] LABS: Anion Gap 10.0 mmol/L (3-11); Blood Urea Nitrogen 18.0 mg/dL (8-24); CO2, Blood 28.0 mmol/L (21-32); Calcium, Blood 8.5 mg/dL (8.5-10.1); Chloride, Blood 102.0 mmol/L (98-108); Creatinine, Blood 0.93 mg/dL (0.60-1.20); Glucose, Blood 143.0 mg/dL (70-99); Potassium, Blood 3.1 mmol/L (3.5-5.5); Sodium, Blood 137.0 mmol/L (136-145)
[2025-06-15 13:09] LABS: pH Blood Venous 7.46 (7.34-7.37)
--- NOTE | 2025-06-15 13:22 | NUR ---
SAND DIGGER- PT ALERT AND ORIENTED. UPON ENTERING THE ROOM TO ADMINISTER THE PT INSULIN, THE PT WAS ALERT ANND TALKING TO THIS RN. MED WAS GIVEN, PT HAD CONSUMED LUNCH. HE WAS LAYING ON HIS RIGHT SIDE, WHEN ASKED HOW HE WAS FEELING (HE LOOKED A LITTLE OFF) HE STATED "I DON'T KNOW. I JUST DON'T FEEL TOO GOOD." AT THAT TIME THIS RN RECIEVED A CALL FROM TELE STATING THE PT HAD A RYTHM CHANGE, AND THEY ARE NOT SEEING PACER SPIKES THEY WERE BEFORE. PT STATED HIS PACE MAKER WAS ABOUT 15 YEARS OLD AND HE WAS TOLD ABOUT A MONTH AGO IT NEEDED A NEW BATTERY. CALLED DR DRAKE, LEFT A MESSAGE, REQUESTED EKG, CARDIOLOGY CONSULT AND DR TO COME TO THE BEDSIDE. THIS RN GATHERED THE EKG, VITALS MACHINE AMD PERFORMED A FOCUSED ASSESSMENT. PT STATED HE WAS HAVING SOME CHEST PAIN THAT WAS "LIKE A PRESSURE" INDICATING MID STERNAL. RT DIEGO WAS NEXT DOOR. PT STATED HE WAS HAVING TROUBLE BREATHING RESP RATE WAS 40. ASKED DIEGO TO ASSIST. BP WAS 120'S/60'S PT WAS CONNECTED TO THE EKG AND STARTED TO HAVE LARGE TREMMORS. HE STATED HE WAS A BIT COLD, HE WAS A LITTLE SWEATY, STATED CP 6/10 AND THOUGHT HIS LEFT ARM WAS TINGLING. CALLED DR DRAKE AND EXPLAINED THE SITUATION. ORDERS RECIEVED AND PLACED. SAND DIGGER WAS CALLED AT THIS TIME. THE PT EKG MACHINE SHOWED HR IN THE 30'S AND THE PT STATED HE WAS NOT "FEELING WELL AT ALL." NOTIFIED SAND DIGGER WAS CALLED, DEVICE WAS INTERROGATED, EKG COMPLETED, PT ON BIPAP, TRANSFERED TO ICU 20. CALLED HIS SON ENDY, HE IS AWARE OF THE TRANSFER TO ICU.
[2025-06-15 13:56] LABS: Anion Gap 8.0 mmol/L (3-11); Blood Urea Nitrogen 16.0 mg/dL (8-24); CO2, Blood 30.0 mmol/L (21-32); Calcium, Blood 8.8 mg/dL (8.5-10.1); Chloride, Blood 102.0 mmol/L (98-108); Creatinine, Blood 0.99 mg/dL (0.60-1.20); Glucose, Blood 251.0 mg/dL (70-99); Magnesium, Blood 2.2 mg/dL (1.6-2.4); Phosphorus, Blood 2.7 mg/dL (2.5-4.9); Potassium, Blood 3.7 mmol/L (3.5-5.5); Sodium, Blood 136.0 mmol/L (136-145)
--- NOTE | 2025-06-15 14:00 | NUR ---
ARRIVAL TO ICU: PT ARRIVED TO ICU-11 FOLLOWING DEWAXER ON MEDICAL FLOOR. PT C/O 6/10 CHEST PAIN TO MID-STERNUM W/ NUMBNESS DOWN LEFT ARM. RHYTHM CHANGES NOTED ON MONITOR W/ LOSS OF PACING. PT PLACED ON ZOLL MONITOR. NEW TREMORS PRESENT. C/O SOB, PLACED ON BIPAP BY RT; SPO2 >90%. SBP 120-130'S. HR 60'S. EKG COMPLETED, LABS DRAWN. DR. DRAKE TO BEDSIDE, PLANS TO TRANSFER PT TO FACILITY W/ ABILITY TO REPLACE EXISTING PACER. ACCEPTING PHYSICIAN DR. IRENE AT [facility]. THIS RN PLACED CALL TO PT'S SON, ENDY, W/ UPDATE. PT TO BE TRANSFERRED THIS AFTERNOON.
--- NOTE | 2025-06-15 15:40 | NUR ---
TRANSFER: PT TRANSFERRED TO [facility] AT 1530 BY [facility]. VSS AT TIME OF TRANSFER. PT DENIES CHEST PAIN & SHORTNESS OF BREATH. ALL BELONGINGS & CELL PHONE TRANSFERRED W/ PT. THIS RN CALLED REPORT TO REY OLIVARES. UPDATE PROVIDED TO HEALTH, PT'S SON.
== END 2025-06-15 15:40 | disposition short-term general hospital (02) | DRG 291 ==
LOC: ER 08:36 → MEDS 14:05 → EDBEDREQ 15:58 → MEDS 16:16 → ICUE 06-15 13:16
PROVIDERS: Student in an Organized Health Care Education/Training Program; ADMIT Internal Medicine
PROC: 4B02XSZ Measurement of Cardiac Pacemaker, External Approach (ICD-10-PCS; principal; 2025-06-15)
DX: I13.0 Hypertensive heart and chronic kidney disease with heart failure and stage 1 through stage 4 chronic kidney disease, or unspecified chronic kidney disease (principal); I50.33 Acute on chronic diastolic (congestive) heart failure; J96.21 Acute and chronic respiratory failure with hypoxia; N18.9 Chronic kidney disease, unspecified; I48.0 Paroxysmal atrial fibrillation; N40.0 Benign prostatic hyperplasia without lower urinary tract symptoms; J44.9 Chronic obstructive pulmonary disease, unspecified; E78.5 Hyperlipidemia, unspecified; I25.10 Atherosclerotic heart disease of native coronary artery without angina pectoris; K21.9 Gastro-esophageal reflux disease without esophagitis; F41.9 Anxiety disorder, unspecified; F32.A Depression, unspecified; E11.51 Type 2 diabetes mellitus with diabetic peripheral angiopathy without gangrene; E83.119 Hemochromatosis, unspecified; G47.33 Obstructive sleep apnea (adult) (pediatric); F17.200 Nicotine dependence, unspecified, uncomplicated; E11.65 Type 2 diabetes mellitus with hyperglycemia; E11.22 Type 2 diabetes mellitus with diabetic chronic kidney disease; E83.42 Hypomagnesemia; I25.2 Old myocardial infarction; Z86.73 Personal history of transient ischemic attack (TIA), and cerebral infarction without residual deficits; Z95.0 Presence of cardiac pacemaker; Z88.8 Allergy status to other drugs, medicaments and biological substances; Z79.01 Long term (current) use of anticoagulants; Z79.84 Long term (current) use of oral hypoglycemic drugs; Z79.85 Long-term (current) use of injectable non-insulin antidiabetic drugs; Z79.4 Long term (current) use of insulin; Z79.82 Long term (current) use of aspirin; Z89.512 Acquired absence of left leg below knee; Z89.421 Acquired absence of other right toe(s); Z85.46 Personal history of malignant neoplasm of prostate; Z45.018 Encounter for adjustment and management of other part of cardiac pacemaker
CPT/HCPCS: 36415; 71045; 80048; 80053; 82803; 82947; 83690; 83735; 83880; 84100; 84484; 85025; 93005; 93010; 94660; 96365; 96366; 96375; 96376; 99285-25; A9270; G0378; J1815; J1938; J3475

== ENCOUNTER 2025-07-12 13:47 | Emergency (ER) | payer OTHER ==
[~2025-07-12] VITALS: Ht 177.8 cm; Wt 122.5 kg
[~2025-07-12 13:47] MED LIST changes: +BISA5EC PO; +DULCOLAX400 MG/51 PO; +MIRALAX17 GM PO; +TRULICITY4.5 MG/0.5 SC
[2025-07-12 14:24] LABS: BASOPHILS ABSOLUTE AUTO 0.03 K/mm3 (0.00-0.23); BASOPHILS PERCENT AUTO 1 % (0-2); EOSINOPHILS ABSOLUTE AUTO 0.06 K/mm3 (0.00-0.68); EOSINOPHILS PERCENT AUTO 1 % (0-6); Hematocrit 39.4 % (37.0-53.0); Hemoglobin 13.5 g/dL (13.5-17.5); IMMATURE GRAN ABSOLUTE AUTO 0.04 K/mm3 (0.00-0.10); IMMATURE GRAN PERCENT AUTO 1 % (0-1); LYMPHOCYTES ABSOLUTE AUTO 1.93 K/mm3 (0.84-5.20); LYMPHOCYTES PERCENT AUTO 32 % (21-46); MONOCYTES ABSOLUTE AUTO 0.38 K/mm3 (0.16-1.47); MONOCYTES PERCENT AUTO 6 % (4-13); Mean Corpuscular HGB Conc 34.3 g/dL (31.5-36.5); Mean Corpuscular Volume 102 fL (80-100); NEUTROPHILS ABSOLUTE AUTO 3.62 K/mm3 (1.96-9.15); NEUTROPHILS PERCENT AUTO 60 % (41-73); NRBC ABSOLUTE 0.00 K/mm3 (0.00-0.02); NRBC Auto 0.0 /100 WBC (0.0-0.2); Platelet Count 132 K/mm3 (150-400); RDW Coefficient Variation 13.5 % (11.7-14.2); RDW Standard Deviation 50.7 fL (35.1-46.3)
[2025-07-12 14:50] LABS: Prothrombin Time Results 13.2 Sec (9.7-11.5)
[2025-07-12 14:51] LABS: Alanine Aminotransfer (ALT/SGP 27.0 U/L (12-78); Albumin, Blood 3.0 g/dL (3.4-5.0); Albumin/Globulin Ratio 0.8 (0.8-1.8); Anion Gap 8.0 mmol/L (3-11); Aspartate Aminotrans (AST/SGOT 32.0 U/L (12-37); Bilirubin, Total 0.4 mg/dL (0.1-1.0); Blood Urea Nitrogen 14.0 mg/dL (8-24); CO2, Blood 28.0 mmol/L (21-32); Calcium, Blood 8.2 mg/dL (8.5-10.1); Chloride, Blood 106.0 mmol/L (98-108); Creatinine, Blood 0.92 mg/dL (0.60-1.20); Globulin, Blood 3.6 g/dL (2.2-4.0); Glucose, Blood 174.0 mg/dL (70-99); Potassium, Blood 4.0 mmol/L (3.5-5.5); Sodium, Blood 138.0 mmol/L (136-145); Total Protein, Blood 6.6 g/dL (6.4-8.2)
[2025-07-12 16:45] VITALS: BP 102/53
== END 2025-07-12 16:54 | disposition home or self-care (01) ==
LOC: ER 13:47
PROVIDERS: Emergency Medicine
DX: K62.5 Hemorrhage of anus and rectum (principal); E11.51 Type 2 diabetes mellitus with diabetic peripheral angiopathy without gangrene; I25.2 Old myocardial infarction; I11.0 Hypertensive heart disease with heart failure; I50.9 Heart failure, unspecified; E78.5 Hyperlipidemia, unspecified; F17.210 Nicotine dependence, cigarettes, uncomplicated; Z88.8 Allergy status to other drugs, medicaments and biological substances; Z79.899 Other long term (current) drug therapy; Z79.84 Long term (current) use of oral hypoglycemic drugs; Z79.4 Long term (current) use of insulin; Z79.82 Long term (current) use of aspirin; I25.10 Atherosclerotic heart disease of native coronary artery without angina pectoris
CPT/HCPCS: 80053; 82272; 85025; 85610; 85730; 86850; 86900; 86901; 93005; 93010; 99285-25

== ENCOUNTER 2025-09-15 18:40 | Inpatient (IN) | payer OTHER ==
[~2025-09-15] VITALS: Ht 177.8 cm; Wt 123.6 kg
[2025-09-15] MEDS ORDERED: Aspir 8181 MG PO (19:00)
[2025-09-15] MEDS ORDERED: FOLI1 PO (19:00)
[2025-09-15] MEDS ORDERED: ATOR40TA PO (19:00)
[2025-09-15] MEDS ORDERED: ESCI20 PO (19:00)
[2025-09-15] MEDS ORDERED: METO25ER PO (19:01)
[2025-09-15] MEDS ORDERED: PRAZ5 PO (19:01)
[2025-09-15] MEDS ORDERED: SENN187 PO (19:01)
[2025-09-15] MEDS ORDERED: TRAZ50 PO (19:01)
[2025-09-15] MEDS ORDERED: HYDURE500 PO (19:01)
[2025-09-15] MEDS ORDERED: POTCHL20ER PO (19:02)
[2025-09-15] MEDS ORDERED: METF500 PO (19:02)
[2025-09-15] MEDS ORDERED: ELIQUIS5 M2 PO (19:02)
[2025-09-15] MEDS ORDERED: Amiodarone HCl200 MG PO (19:02)
[2025-09-15] MEDS ORDERED: GABA400 PO (19:02)
[2025-09-15] MEDS ORDERED: FURO40 PO (19:02)
[2025-09-15] MEDS ORDERED: ROXICODONE15 MG PO (19:03)
[2025-09-15 19:19] LABS: BASOPHILS ABSOLUTE AUTO 0.07 K/mm3 (0.00-0.23); BASOPHILS PERCENT AUTO 1 % (0-2); EOSINOPHILS ABSOLUTE AUTO 0.13 K/mm3 (0.00-0.68); EOSINOPHILS PERCENT AUTO 2 % (0-6); Hematocrit 38.8 % (37.0-53.0); Hemoglobin 13.1 g/dL (13.5-17.5); IMMATURE GRAN ABSOLUTE AUTO 0.05 K/mm3 (0.00-0.10); IMMATURE GRAN PERCENT AUTO 1 % (0-1); LYMPHOCYTES ABSOLUTE AUTO 3.46 K/mm3 (0.84-5.20); LYMPHOCYTES PERCENT AUTO 40 % (21-46); MONOCYTES ABSOLUTE AUTO 0.64 K/mm3 (0.16-1.47); MONOCYTES PERCENT AUTO 7 % (4-13); Mean Corpuscular HGB Conc 33.8 g/dL (31.5-36.5); Mean Corpuscular Volume 105 fL (80-100); NEUTROPHILS ABSOLUTE AUTO 4.37 K/mm3 (1.96-9.15); NEUTROPHILS PERCENT AUTO 50 % (41-73); NRBC ABSOLUTE 0.00 K/mm3 (0.00-0.02); NRBC Auto 0.0 /100 WBC (0.0-0.2); Platelet Count 162 K/mm3 (150-400); RDW Coefficient Variation 13.4 % (11.7-14.2); RDW Standard Deviation 51.2 fL (35.1-46.3)
[2025-09-15] MEDS ORDERED: Ipratropium/Albuterol SulF 2.5-0.5MG/3 ML Amp INH ONE (19:30)
[2025-09-15 19:45] LABS: Alanine Aminotransfer (ALT/SGP 21.0 U/L (12-78); Albumin, Blood 3.1 g/dL (3.4-5.0); Albumin/Globulin Ratio 0.8 (0.8-1.8); Anion Gap 9.0 mmol/L (3-11); Aspartate Aminotrans (AST/SGOT 15.0 U/L (12-37); Bilirubin, Total 0.5 mg/dL (0.1-1.0); Blood Urea Nitrogen 19.0 mg/dL (8-24); CO2, Blood 28.0 mmol/L (21-32); Calcium, Blood 8.8 mg/dL (8.5-10.1); Chloride, Blood 106.0 mmol/L (98-108); Creatinine, Blood 1.22 mg/dL (0.60-1.20); Globulin, Blood 3.7 g/dL (2.2-4.0); Glucose, Blood 108.0 mg/dL (70-99); Magnesium, Blood 2.4 mg/dL (1.6-2.4); Potassium, Blood 4.2 mmol/L (3.5-5.5); Sodium, Blood 139.0 mmol/L (136-145); Total Protein, Blood 6.8 g/dL (6.4-8.2)
[2025-09-15 20:20] LABS: Influenza A, PCR NEGATIVE (NEGATIVE); Influenza B, PCR NEGATIVE (NEGATIVE); Resp Syncytial Virus, PCR NEGATIVE (NEGATIVE); SARS-Cov-2 (COVID-19) PCR, MMC NEGATIVE (NEGATIVE)
[2025-09-15] MEDS ORDERED: Magnesium Sulf 2 GM/Water 50ML 50 ML IV ONE (21:05)
[2025-09-15] MEDS ORDERED: Ondansetron HCl 2 MG / ML 2ML Vial IV PRN (22:25)
[2025-09-15] MEDS ORDERED: FLU VACC TS2025(65UP)/MF59C/PF 45 MCG/0.5 ML SYRINGE IM ONE (22:25)
[2025-09-15 22:49] VITALS: BP 106/58
[2025-09-15] MEDS ORDERED: Enoxaparin 40 MG/0.4 ML SYR SC SCH (23:00)
[2025-09-16] VITALS (7 sets, daily range): BP systolic 97–116; BP diastolic 56–68
--- NOTE | 2025-09-16 02:57 | NUR ---
LATE ENTRY ASSUMPTION OF CARE REPORT RECIEVED FROM JAVIER OLIVARES. PT ARRIVED TO PCU AROUND 2243. PT SLID FROM [facility] TO PCU BED. A&O X4, CALM, COOPERATIVE TO CARE. HX OF CVA WITH RIGHT SIDED WEAKNESS. PER PT HE USES A MOTORIZED WHEELCHAIR AT BASELINE. HR IN THE 60'S, PACED RHYTHM. HE DENIES ANY CP/PRESSURE, NUMB/TINGLING, SBP STABLE. PT ON 3L VIA NC WHILE AWAKE. PT USES BIPAP FOR SLEEP. HE DENIES ANY SOB AT THIS TIMES AND REPORTS IMRPIVED BREATHING. URINAL AT BEDSIDE, PT USES INDEPENDENTLY. PT DIURESING WELL. HE IS RESTING IN BED AT THIS TIME. CALL LIGHT IN REACH. WILL MONITOR PT.
[2025-09-16 03:58] LABS: BASOPHILS ABSOLUTE AUTO 0.06 K/mm3 (0.00-0.23); BASOPHILS PERCENT AUTO 1 % (0-2); EOSINOPHILS ABSOLUTE AUTO 0.10 K/mm3 (0.00-0.68); EOSINOPHILS PERCENT AUTO 1 % (0-6); Hematocrit 38.9 % (37.0-53.0); Hemoglobin 12.9 g/dL (13.5-17.5); IMMATURE GRAN ABSOLUTE AUTO 0.04 K/mm3 (0.00-0.10); IMMATURE GRAN PERCENT AUTO 0 % (0-1); LYMPHOCYTES ABSOLUTE AUTO 2.01 K/mm3 (0.84-5.20); LYMPHOCYTES PERCENT AUTO 20 % (21-46); MONOCYTES ABSOLUTE AUTO 0.78 K/mm3 (0.16-1.47); MONOCYTES PERCENT AUTO 8 % (4-13); Mean Corpuscular HGB Conc 33.2 g/dL (31.5-36.5); Mean Corpuscular Volume 106 fL (80-100); NEUTROPHILS ABSOLUTE AUTO 7.02 K/mm3 (1.96-9.15); NEUTROPHILS PERCENT AUTO 70 % (41-73); NRBC ABSOLUTE 0.00 K/mm3 (0.00-0.02); NRBC Auto 0.0 /100 WBC (0.0-0.2); Platelet Count 154 K/mm3 (150-400); RDW Coefficient Variation 13.6 % (11.7-14.2); RDW Standard Deviation 53.0 fL (35.1-46.3)
[2025-09-16 05:03] LABS: Alanine Aminotransfer (ALT/SGP 21.0 U/L (12-78); Albumin, Blood 2.8 g/dL (3.4-5.0); Albumin/Globulin Ratio 0.8 (0.8-1.8); Anion Gap 8.0 mmol/L (3-11); Aspartate Aminotrans (AST/SGOT 14.0 U/L (12-37); Bilirubin, Total 0.4 mg/dL (0.1-1.0); Blood Urea Nitrogen 17.0 mg/dL (8-24); CO2, Blood 28.0 mmol/L (21-32); Calcium, Blood 8.8 mg/dL (8.5-10.1); Chloride, Blood 106.0 mmol/L (98-108); Creatinine, Blood 1.2 mg/dL (0.60-1.20); Globulin, Blood 3.7 g/dL (2.2-4.0); Glucose, Blood 136.0 mg/dL (70-99); Potassium, Blood 4.0 mmol/L (3.5-5.5); Sodium, Blood 138.0 mmol/L (136-145); Total Protein, Blood 6.5 g/dL (6.4-8.2)
--- NOTE | 2025-09-16 05:50 | NUR ---
SHIFT SUMMARY PT A&O X4, CALM, COOPERATIVE TO CARE. HX OF CVA WITH R SIDED WEAKNESS. HR IN THE 60'S, PACED RHYTHM, HE DENIES ANY CP/PRESSURE, NUMB/TINGLING, SBP SOFT, MAP >65. SpO2 >92%, PT DENIES ANY SOB AT THIS TIME. PT REMAINED ON BIPAP T/O NIGHT, PT UNSURE OF HOME SETTING BUT REPORTS IT FEELS THE SAME AT HOME. PT HAS URINAL AT BEDSIDE. DIURESING WELL. PT REPOSITING SELF T/O NIGHT INDEPENDENTLY. PT RESTING IN BED AT THIS TIME. CALL LIGHT IN REACH. WILL MONITOR PT AND REPORT TO ONCOMING RN.
[2025-09-16] MEDS ORDERED: Albuterol 2.5 MG/3 ML VIAL INH PRN (07:05)
[2025-09-16] MEDS ORDERED: Albuterol 2.5 MG/3 ML VIAL ONE (07:07)
--- NOTE | 2025-09-16 07:07 | NUR ---
UPDATE PT REPORTING INCREASED SOB. L/S WHEEZING IN BILAT UPPER LOBES. INCREASED O2 TO 4L. RT CALLED TO ASSESS FOR POSSIBLE BREATHING TREATMENT. PT PLACED BACK ON BIPAP. DAYSHIFT NURSE IN ROOM, REPORT GIVEN. PT SITTING UP IN BED AT THIS TIME, RT AT BEDSIDE.
--- NOTE | 2025-09-16 08:05 | NUR ---
AM NOTE ASSUMED CARE OF PATIENT AT APPROX 0700. PT ALERT, ORIENTED X4; COOPERATIVE WITH CARE. REPORTING INCREASED SOB THIS AM, PLACED ON BIPAP WITH 3.5L BLEED IN BY RT, PT REPORTING DECREASED SOB WITH BIPAP. LS DIM WITH FINE CRACKCLES TO BASES, SPO2 >90%, TACHYPNIC. DENIES PAIN, NAUSEA, DIZZINESS AND NUMB/TINGLING AT THIS TIME. TELE PACED, BP STABLE. ABD SOFT, NONTENDER, +BT. TRACE EDEMA NOTED BLE. CALL LIGHT WITHIN REACH.
[2025-09-16] MEDS ORDERED: Insulin Glargine-Yfg SC (13:18)
[2025-09-16] MEDS ORDERED: Insulin Human Lispro 100 Units/ML 3ML Syringe SC SCH (16:30)
--- NOTE | 2025-09-16 18:43 | NUR ---
SHIFT SUMMARY: ASSUMED CARE AT APPROX 1500 A/O X4, PLEASANT AND COOPERATIVE WITH CARE, ABLE TO MAKE NEEDS KNOWN, HX LEFT CVA W/RIGHT SIDED WEAKNESS, BENEFITS FROM SETTING UP MEAL TRAYS AND CUTTING UP FOOD, INDEPENDENT AFTER THAT. PT ENDORSES FEELING SOB DESPITE SAT >95% ON 3L NC, PT REQUESTED TO GO BACK ON BIPAP AND REPORTED THAT SENSATION OF SOB RESOLVED, EDUCATED PT ON IMPORTANCE OF GOOD ORAL HYGIENE WHEN USING BIPAP, PT DEMONSTRATED UNDERSTANDING AFTER DINNER BEFORE GOING FROM NC BACK TO BIPAP. PACED RHYTHM, HR 60 S DENIES CHEST PAIN AND PRESSURE. PT REPORTS FEELING ANXIOUS, DENIES WANTING ANY INTERVENTION TO MANAGE IT, I M GOING TO TAKE A NAP AND SEE IF THAT WILL HELP. LIFT FOR TRANSFERS, MOVES INDEPENDENTLY IN BED. DENIES FURTHER NEEDS AT THIS TIME, ORIENTED TO CALL LIGHT.
[2025-09-16] MEDS ORDERED: Insulin Glargine 100 Unit/ML 3 ML SYR SC SCH (21:00)
[2025-09-17 03:23] VITALS: BP 134/84
--- NOTE | 2025-09-17 06:23 | NUR ---
SHIFT SUMMARY PT A&O X4, CALM, COOPERATIVE TO CARE. HR IN THE 60'S-70'S, PACED RHYTHM. HE DENIES ANY CP/PRESSURE, NUMB/TINGLING, SBP RANGING FROM 90'S-110'S, MAP >65. SpO2 >92%, PT ON BIPAP T/O NIGHT, ON 4L NC WHEN NOT ON BIPAP. PT REPORTS SOB WHEN OFF BIPAP. HE HAS URINAL AT BEDSIDE, PT DOES HAVE EPISODES OF INCONTINENCE. PLACED MALE PUREWICK THIS AM FOR MORE ACCURATE I'S AND O'S. NO ACUTE CHANGES T/O SHIFT. PT RESTING IN BED AT THIS TIME. CALL LIGHT IN REACH. WILL MONITOR PT AND REPORT TO ONCOMING RN.
[2025-09-17 08:05] LABS: BASOPHILS ABSOLUTE AUTO 0.05 K/mm3 (0.00-0.23); BASOPHILS PERCENT AUTO 1 % (0-2); EOSINOPHILS ABSOLUTE AUTO 0.12 K/mm3 (0.00-0.68); EOSINOPHILS PERCENT AUTO 2 % (0-6); Hematocrit 39.9 % (37.0-53.0); Hemoglobin 13.6 g/dL (13.5-17.5); IMMATURE GRAN ABSOLUTE AUTO 0.05 K/mm3 (0.00-0.10); IMMATURE GRAN PERCENT AUTO 1 % (0-1); LYMPHOCYTES ABSOLUTE AUTO 2.13 K/mm3 (0.84-5.20); LYMPHOCYTES PERCENT AUTO 29 % (21-46); MONOCYTES ABSOLUTE AUTO 0.59 K/mm3 (0.16-1.47); MONOCYTES PERCENT AUTO 8 % (4-13); Mean Corpuscular HGB Conc 34.1 g/dL (31.5-36.5); Mean Corpuscular Volume 104 fL (80-100); NEUTROPHILS ABSOLUTE AUTO 4.50 K/mm3 (1.96-9.15); NEUTROPHILS PERCENT AUTO 61 % (41-73); NRBC ABSOLUTE 0.00 K/mm3 (0.00-0.02); NRBC Auto 0.0 /100 WBC (0.0-0.2); Platelet Count 162 K/mm3 (150-400); RDW Coefficient Variation 13.4 % (11.7-14.2); RDW Standard Deviation 51.1 fL (35.1-46.3)
[2025-09-17 08:32] LABS: Anion Gap 6.0 mmol/L (3-11); Blood Urea Nitrogen 20.0 mg/dL (8-24); CO2, Blood 28.0 mmol/L (21-32); Calcium, Blood 8.4 mg/dL (8.5-10.1); Chloride, Blood 105.0 mmol/L (98-108); Creatinine, Blood 1.0 mg/dL (0.60-1.20); Glucose, Blood 144.0 mg/dL (70-99); Magnesium, Blood 2.4 mg/dL (1.6-2.4); Potassium, Blood 3.4 mmol/L (3.5-5.5); Sodium, Blood 136.0 mmol/L (136-145)
[2025-09-17 08:42] VITALS: BP 120/64
[2025-09-17 11:33] VITALS: BP 125/70
[2025-09-17] MEDS ORDERED: Colace100 MG PO (13:08)
[2025-09-17 14:31] VITALS: BP 106/90
--- NOTE | 2025-09-17 14:53 | NUR ---
Assumed care of patient at approximately 1430. Patient transported via bed from PCU 4. Patient with Purewick in place and set to suction, oxygen at 3L via NC also in place. Patient oriented to room, call system. Denies needs or issues at this time. Call light within reach and bed in lowest position.
[2025-09-17 16:10] VITALS: BP 111/53
--- NOTE | 2025-09-17 17:19 | NUR ---
End of shift summary: Patient alert and oriented x3; pleasant and cooperative. Patient denies CP or pressure, SOB except with exertion, N/V/D or pain at this time. Purewick draining yellow urine without difficulty. Patient denies needs or issues. Call light within reach, bed in lowest position. BIPAP in room for patient needs. Will continue to monitor until next shift nurse arrives and report is given.
--- NOTE | 2025-09-17 19:18 | NUR ---
TRANSFER OF CARE REPORT GIVEN TO ROOM 358 RN AT APPROX 1400. PT A/O X4, ANXIOUS, PLEASANT AND COOPERATIVE WITH CARE, ABLE TO COMMUNICATE NEEDS, USES CALL LIGHT APPROPRIATELY. PACED RHYTHM, PT DENIES CHEST PAIN OR PRESSURE, DENIES NEW NUMBNESS OR TINGLING IN EXTREMITIES. SPO2 >92% ON 3L O2 NC OR 3.5L BLEED IN ON BIPAP, PT ENDORSES RELIEF FROM SOB WITH BIPAP NOT ACHIEVED ON NC, PT STATES HE FEELS SOB AT REST FREQUENTLY AT BASELINE AND IS A PACK A DAY SMOKER. PUREWICK IN PLACE FOR FREQUENT URINATION WITH DIURETIC, PT HAD LARGE BM THIS AFTERNOON ON A BEDPAN. PT LEFT THE UNIT WITH ALL BELONGINGS AND MEDICATIONS AT APPROX 1405 ON HOSPITAL BED.
[2025-09-17 20:39] VITALS: BP 114/53
[2025-09-18] VITALS (7 sets, daily range): BP systolic 103–137; BP diastolic 53–102
[2025-09-18 05:25] LABS: BASOPHILS ABSOLUTE AUTO 0.06 K/mm3 (0.00-0.23); BASOPHILS PERCENT AUTO 1 % (0-2); EOSINOPHILS ABSOLUTE AUTO 0.14 K/mm3 (0.00-0.68); EOSINOPHILS PERCENT AUTO 2 % (0-6); Hematocrit 39.2 % (37.0-53.0); Hemoglobin 13.1 g/dL (13.5-17.5); IMMATURE GRAN ABSOLUTE AUTO 0.04 K/mm3 (0.00-0.10); IMMATURE GRAN PERCENT AUTO 1 % (0-1); LYMPHOCYTES ABSOLUTE AUTO 3.35 K/mm3 (0.84-5.20); LYMPHOCYTES PERCENT AUTO 40 % (21-46); MONOCYTES ABSOLUTE AUTO 0.82 K/mm3 (0.16-1.47); MONOCYTES PERCENT AUTO 10 % (4-13); Mean Corpuscular HGB Conc 33.4 g/dL (31.5-36.5); Mean Corpuscular Volume 104 fL (80-100); NEUTROPHILS ABSOLUTE AUTO 4.00 K/mm3 (1.96-9.15); NEUTROPHILS PERCENT AUTO 48 % (41-73); NRBC ABSOLUTE 0.00 K/mm3 (0.00-0.02); NRBC Auto 0.0 /100 WBC (0.0-0.2); Platelet Count 149 K/mm3 (150-400); RDW Coefficient Variation 13.2 % (11.7-14.2); RDW Standard Deviation 50.4 fL (35.1-46.3)
[2025-09-18 05:54] LABS: Anion Gap 9.0 mmol/L (3-11); Blood Urea Nitrogen 21.0 mg/dL (8-24); CO2, Blood 26.0 mmol/L (21-32); Calcium, Blood 8.6 mg/dL (8.5-10.1); Chloride, Blood 105.0 mmol/L (98-108); Creatinine, Blood 1.1 mg/dL (0.60-1.20); Glucose, Blood 117.0 mg/dL (70-99); Magnesium, Blood 2.5 mg/dL (1.6-2.4); Potassium, Blood 3.5 mmol/L (3.5-5.5); Sodium, Blood 136.0 mmol/L (136-145)
--- NOTE | 2025-09-18 06:25 | NUR ---
SAT INSTRUCTOR SUMMARY PT A&OX4, VSS. ABLE TO MAKE NEEDS KNOWN EFFECTIVELY. PT HAS BEEN ASLEEP FOR MOST OF THE SHIFT. CHEST RISE/RESPIRATIONS NOTED. OXYCODONE ADMIN 1 X W/ GOOD EFFECT. REMAINS ON TELE. AV PACED AT 60. PUREWICK REMAINS IN PLACE FOR INCONT. DRAINING CLEAR, YELLOW URINE TO SUCTION. PT BUMPED UP TO 5L NC TO MAINTAIN >=90% ON CONT PULSE OX PER ORDERS. REMAINS ON 6L BLED IN TO BIPAP WHEN ASLEEP. BED RAILS UP X 2, BED IN LOWEST POSITION, BED WHEELS LOCKED, PERSONAL BELONGINGS AND CALL LIGHT WITHIN REACH FOR SAFETY.
--- NOTE | 2025-09-18 19:34 | NUR ---
End of shift summary: Patient is alert and oriented x3; pleasant and cooperative with care. Patient currently on RA after discussion with Dr. Trujillo and trial run of no oxygen since approximately 12; saturation remains >90%. Plan to discharge home tomorrow if he continues to do well tonight. Patient denies CP or pressure, N/V/D, pain or SOB except with exertion. All medications administered per EMAR. No acute changes this shift. Bed in lowest postion and call light within reach. Report given to night nurse.
[2025-09-19 04:58] VITALS: BP 92/68
--- NOTE | 2025-09-19 05:37 | NUR ---
TALENT DEVELOPMENT CONSULTANT SUMMARY PT A&OX4, VSS. ABLE TO VOICE NEEDS EFFECTIVELY. PT HAS BEEN ASLEEP FOR MOST OF THE NIGHT. CHEST RISE/RESPIRATIONS NOTED. PER RT, 4L BLED IN TO BIPAP WHEN ASLEEP. PT DOES STATE HE USES AN OXYGEN CONCENTRATOR AT BASELINE TO BLEED IN O2 TO BIPAP WHEN ASLEEP, BUT DOES NOT KNOW HOW MUCH OXYGEN IT DELIVERS. RA WHEN AWAKE, O2 SATS >=90% ON VS CHECKS AND SPOT CHECKS. PT DENIES SOB AT REST BUT DOES ENDORSE SOB W/ EXERTION. OXYCODONE ADMIN 1 TIME FOR BACK PAIN W/ GOOD EFFECT. REMAINS ON TELE. V-PACED AT 70. PUREWICK REMAINS IN PLACE. DRAINING CLEAR, YELLOW URINE TO SUCTION. BED RAILS UP X 2, BED IN LOWEST POSITION, BED WHEELS LOCKED, PERSONAL BELONGINGS AND CALL LIGHT WITHIN REACH FOR SAFETY.
[2025-09-19 07:19] LABS: BASOPHILS ABSOLUTE AUTO 0.05 K/mm3 (0.00-0.23); BASOPHILS PERCENT AUTO 1 % (0-2); EOSINOPHILS ABSOLUTE AUTO 0.14 K/mm3 (0.00-0.68); EOSINOPHILS PERCENT AUTO 2 % (0-6); Hematocrit 40.2 % (37.0-53.0); Hemoglobin 13.7 g/dL (13.5-17.5); IMMATURE GRAN ABSOLUTE AUTO 0.05 K/mm3 (0.00-0.10); IMMATURE GRAN PERCENT AUTO 1 % (0-1); LYMPHOCYTES ABSOLUTE AUTO 2.29 K/mm3 (0.84-5.20); LYMPHOCYTES PERCENT AUTO 30 % (21-46); MONOCYTES ABSOLUTE AUTO 0.60 K/mm3 (0.16-1.47); MONOCYTES PERCENT AUTO 8 % (4-13); Mean Corpuscular HGB Conc 34.1 g/dL (31.5-36.5); Mean Corpuscular Volume 102 fL (80-100); NEUTROPHILS ABSOLUTE AUTO 4.64 K/mm3 (1.96-9.15); NEUTROPHILS PERCENT AUTO 60 % (41-73); NRBC ABSOLUTE 0.00 K/mm3 (0.00-0.02); NRBC Auto 0.0 /100 WBC (0.0-0.2); Platelet Count 154 K/mm3 (150-400); RDW Coefficient Variation 12.9 % (11.7-14.2); RDW Standard Deviation 49.1 fL (35.1-46.3)
[2025-09-19 07:32] LABS: Anion Gap 8.0 mmol/L (3-11); Blood Urea Nitrogen 25.0 mg/dL (8-24); CO2, Blood 28.0 mmol/L (21-32); Calcium, Blood 8.8 mg/dL (8.5-10.1); Chloride, Blood 103.0 mmol/L (98-108); Creatinine, Blood 1.18 mg/dL (0.60-1.20); Glucose, Blood 133.0 mg/dL (70-99); Magnesium, Blood 2.4 mg/dL (1.6-2.4); Potassium, Blood 3.2 mmol/L (3.5-5.5); Sodium, Blood 136.0 mmol/L (136-145)
[2025-09-19 08:21] VITALS: BP 96/47
[2025-09-19 11:27] VITALS: BP 108/59
[2025-09-19] MEDS ORDERED: BASAGLAR K100 UNIT/6 SC (12:01)
[2025-09-19] MEDS ORDERED: TRULICITY4.5 MG/0.5 SC (12:01)
--- NOTE | 2025-09-19 12:44 | NUR ---
REPORT TO [facility]- SPOKE TO NURSE AT [facility] AND DISCHARGE INSTRUCTIONS PER PACKET ARE DISCUSSED. RN HAD NO QUESTIONS.
--- NOTE | 2025-09-19 13:18 | NUR ---
SHIFT/DISCHARGE SUMMARY- PT DISCHARGED BACK TO [facility]. NO CHANGES TO MEDICATIONS. REPORT CALLED TO RN AT [facility]. IV AND PUREWIK REMOVED. LIFT SLING USED TO MOVE PATIENT FROM BED TO WHEELCHAIR WITH NO ISSUE. PICKED UP BY [facility].
== END 2025-09-19 13:13 | DRG 291 ==
LOC: ER 18:40 → PCU 21:34 → MEDS 09-17 14:20
PROVIDERS: Student in an Organized Health Care Education/Training Program; ADMIT Internal Medicine
PROC: 5A09357 Assistance with Respiratory Ventilation, Less than 24 Consecutive Hours, Continuous Positive Airway Pressure (ICD-10-PCS; principal; 2025-09-16)
DX: I11.0 Hypertensive heart disease with heart failure (principal); I50.33 Acute on chronic diastolic (congestive) heart failure; J96.01 Acute respiratory failure with hypoxia; N17.9 Acute kidney failure, unspecified; E11.9 Type 2 diabetes mellitus without complications; E78.5 Hyperlipidemia, unspecified; I48.91 Unspecified atrial fibrillation; G47.33 Obstructive sleep apnea (adult) (pediatric); F17.210 Nicotine dependence, cigarettes, uncomplicated; J44.9 Chronic obstructive pulmonary disease, unspecified; N40.0 Benign prostatic hyperplasia without lower urinary tract symptoms; I25.10 Atherosclerotic heart disease of native coronary artery without angina pectoris; F32.A Depression, unspecified; E83.119 Hemochromatosis, unspecified; F41.9 Anxiety disorder, unspecified; Z90.89 Acquired absence of other organs; Z90.49 Acquired absence of other specified parts of digestive tract; Z89.512 Acquired absence of left leg below knee; Z89.421 Acquired absence of other right toe(s); Z98.890 Other specified postprocedural states; Z88.8 Allergy status to other drugs, medicaments and biological substances; I25.2 Old myocardial infarction; Z86.73 Personal history of transient ischemic attack (TIA), and cerebral infarction without residual deficits; Z79.4 Long term (current) use of insulin; Z79.01 Long term (current) use of anticoagulants; Z79.82 Long term (current) use of aspirin; Z79.84 Long term (current) use of oral hypoglycemic drugs; Z79.891 Long term (current) use of opiate analgesic; Z79.899 Other long term (current) drug therapy; Z85.46 Personal history of malignant neoplasm of prostate; Z95.810 Presence of automatic (implantable) cardiac defibrillator
CPT/HCPCS: 36415; 71046; 80048; 80053; 82947; 83735; 83880; 84484; 85025; 87637; 93005; 93010; 94640; 94660; 94664; 94762; 96374; 96375; 99285-25; A9270; J1650; J1815; J1938; J3475

== ENCOUNTER 2025-09-26 04:40 | Observation (INO) | payer OTHER ==
[~2025-09-26] VITALS: Ht 177.8 cm; Wt 114.8 kg
[~2025-09-26 04:40] MED LIST changes: +BASAGLAR K100 UNIT/6 SC; +Colace100 MG PO; +FOLI1 PO; +FURO40 PO; +Insulin Glargine-Yfg SC; +METF500 PO
[2025-09-26 05:09] LABS: BASOPHILS ABSOLUTE AUTO 0.05 K/mm3 (0.00-0.23); BASOPHILS PERCENT AUTO 1 % (0-2); EOSINOPHILS ABSOLUTE AUTO 0.13 K/mm3 (0.00-0.68); EOSINOPHILS PERCENT AUTO 2 % (0-6); Hematocrit 40.3 % (37.0-53.0); Hemoglobin 13.7 g/dL (13.5-17.5); IMMATURE GRAN ABSOLUTE AUTO 0.08 K/mm3 (0.00-0.10); IMMATURE GRAN PERCENT AUTO 1 % (0-1); LYMPHOCYTES ABSOLUTE AUTO 2.95 K/mm3 (0.84-5.20); LYMPHOCYTES PERCENT AUTO 36 % (21-46); MONOCYTES ABSOLUTE AUTO 0.64 K/mm3 (0.16-1.47); MONOCYTES PERCENT AUTO 8 % (4-13); Mean Corpuscular HGB Conc 34.0 g/dL (31.5-36.5); Mean Corpuscular Volume 103 fL (80-100); NEUTROPHILS ABSOLUTE AUTO 4.40 K/mm3 (1.96-9.15); NEUTROPHILS PERCENT AUTO 53 % (41-73); NRBC ABSOLUTE 0.00 K/mm3 (0.00-0.02); NRBC Auto 0.0 /100 WBC (0.0-0.2); Platelet Count 148 K/mm3 (150-400); RDW Coefficient Variation 13.3 % (11.7-14.2); RDW Standard Deviation 50.2 fL (35.1-46.3)
[2025-09-26 05:25] LABS: Alanine Aminotransfer (ALT/SGP 25.0 U/L (12-78); Albumin, Blood 3.1 g/dL (3.4-5.0); Albumin/Globulin Ratio 0.8 (0.8-1.8); Anion Gap 11.0 mmol/L (3-11); Aspartate Aminotrans (AST/SGOT 18.0 U/L (12-37); Bilirubin, Total 0.4 mg/dL (0.1-1.0); Blood Urea Nitrogen 25.0 mg/dL (8-24); CO2, Blood 25.0 mmol/L (21-32); Calcium, Blood 8.9 mg/dL (8.5-10.1); Chloride, Blood 104.0 mmol/L (98-108); Creatinine, Blood 1.23 mg/dL (0.60-1.20); Globulin, Blood 4.0 g/dL (2.2-4.0); Glucose, Blood 166.0 mg/dL (70-99); Magnesium, Blood 2.0 mg/dL (1.6-2.4); Phosphorus, Blood 3.0 mg/dL (2.5-4.9); Potassium, Blood 3.3 mmol/L (3.5-5.5); Sodium, Blood 137.0 mmol/L (136-145); Total Protein, Blood 7.1 g/dL (6.4-8.2)
[2025-09-26 06:31] LABS: Prothrombin Time Results 13.0 Sec (9.7-11.5)
[2025-09-26] MEDS ORDERED: Potassium Chl 20MEQ/Water100ML 200 ML IV ONE (06:50)
[2025-09-26 09:10] VITALS: BP 112/72
[2025-09-26] MEDS ORDERED: Ipratropium/Albuterol SulF 2.5-0.5MG/3 ML Amp INH PRN (10:00)
[2025-09-26 11:35] VITALS: BP 124/56
[2025-09-26 13:07] LABS: Influenza A, PCR NEGATIVE (NEGATIVE); Influenza B, PCR NEGATIVE (NEGATIVE); Resp Syncytial Virus, PCR NEGATIVE (NEGATIVE); SARS-Cov-2 (COVID-19) PCR, MMC NEGATIVE (NEGATIVE)
--- NOTE | 2025-09-26 13:46 | NUR ---
THIS RN WAS MADE AWARE BY MUSHROOM GROWTH MEDIA MIXER THAT PT WAS HAVING FAILURE TO CAPTURE. ASSESSED PT, PT WAS IN NO DISTRESS AND REPORTED NO SYMPTOMS. DR. THOMPSON MADE AWARE.
[2025-09-26 15:54] VITALS: BP 129/56
[2025-09-26] MEDS ORDERED: Insulin Human Lispro 100 Units/ML 3ML Syringe SC SCH (16:30)
--- NOTE | 2025-09-26 17:41 | NUR ---
PT WAS ADMITTED TODAY FROM THE ER. HE IS A/OX4. PLEASANT AND COOPERATIVE WITH CARE. PT HAS A MALE PUREWICK IN PLACE. ON IV LASIX FOR FLUID RETENTION. STRICT I's/O's. PT HAS BLANCHABLE REDNESS ON SACRUM. SEE PICS IN CHART. PT HAS HAD SOME EPISODES OF SOB THIS SHIFT, RT NOTIFIED AND BREATHING TREATMENTS ADMINISTERED. PT USES A WC AT BL. HE IS A LIFT ASSIST FOR TRANSFERS. HE HAS BEEN ATRIAL PACED IN THE 60S ON TELE. BED IS IN LOWEST POSITION, CALL LIGHT IS IN REACH. NO ACUTE NEEDS AT THIS TIME.
[2025-09-26 20:48] VITALS: BP 135/63
[2025-09-26] MEDS ORDERED: Insulin Glargine 100 Unit/ML 3 ML SYR SC SCH (21:00)
[2025-09-27 00:44] VITALS: BP 125/68
[2025-09-27 04:20] VITALS: BP 122/67
--- NOTE | 2025-09-27 05:01 | NUR ---
CREW TRUCK DRIVER REVIEW: MOST RECENT RHYTHM STRIP IN CHART REVIEWED AND INTERPRETED V-PACED @ 62 bpm BY THIS RN.
[2025-09-27 05:39] LABS: Anion Gap 10.0 mmol/L (3-11); Blood Urea Nitrogen 20.0 mg/dL (8-24); CO2, Blood 25.0 mmol/L (21-32); Calcium, Blood 8.8 mg/dL (8.5-10.1); Chloride, Blood 107.0 mmol/L (98-108); Creatinine, Blood 1.1 mg/dL (0.60-1.20); Glucose, Blood 123.0 mg/dL (70-99); Potassium, Blood 3.2 mmol/L (3.5-5.5); Sodium, Blood 139.0 mmol/L (136-145)
--- NOTE | 2025-09-27 05:43 | NUR ---
SHIFT SUMMARY: PATIENT REMAINS A+O X4 AND ABLE TO MAKE NEEDS KNOWN. TELE, AV PACED 60'S. S1, S2 HEARD ON ASCULTATION, LUNGS DIMINISHED WITH SUBTLE CRACKLES NOTED IN R LUNG ON ASSESSMENT. BOWEL TONES NOTED IN ALL FOUR QUADRENTS, HYPOACTIVE. PATIENT MEDICATED FOR PAIN X1 THIS SHIFT, SEE EMAR FOR DETAILS. PLAN TO CONTINUE UTILIZING IV LASIX DURING DAY. NO OTHER ACUTE CHANGES. BED IN LOWEST POSITION, CALL LIGHT WITHIN REACH. WILL REPORT TO ONCOMING RN.
[2025-09-27 07:57] VITALS: BP 133/68
[2025-09-27] MEDS ORDERED: Folic Acid 1 MG TAB PO SCH (09:00)
[2025-09-27 11:36] VITALS: BP 125/61
[2025-09-27 15:35] VITALS: BP 118/77
--- NOTE | 2025-09-27 19:58 | NUR ---
SHIFT SUMMARY PT IS A/OX4. BEDREST AT THIS TIME. PT REPORTS W/C AT BASELINE R/T L AKA. ON RA, SATS >90% ON CONT PULSE OX. ON TELE, PACED @ [address] DRAINING CLEAR, YELLOW URINE. PT REPORTS IMPROVEMENT TO SOB THROUGHOUT THIS SHIFT. PT ALSO REPORTING PAIN WITH URINATION, PHYSICAN AWARE.
[2025-09-27 20:07] VITALS: BP 127/59
[2025-09-28 01:28] VITALS: BP 92/55
[2025-09-28 05:33] LABS: BASOPHILS ABSOLUTE AUTO 0.07 K/mm3 (0.00-0.23); BASOPHILS PERCENT AUTO 1 % (0-2); EOSINOPHILS ABSOLUTE AUTO 0.12 K/mm3 (0.00-0.68); EOSINOPHILS PERCENT AUTO 1 % (0-6); Hematocrit 38.4 % (37.0-53.0); Hemoglobin 13.1 g/dL (13.5-17.5); IMMATURE GRAN ABSOLUTE AUTO 0.05 K/mm3 (0.00-0.10); IMMATURE GRAN PERCENT AUTO 1 % (0-1); LYMPHOCYTES ABSOLUTE AUTO 3.01 K/mm3 (0.84-5.20); LYMPHOCYTES PERCENT AUTO 32 % (21-46); MONOCYTES ABSOLUTE AUTO 0.71 K/mm3 (0.16-1.47); MONOCYTES PERCENT AUTO 8 % (4-13); Mean Corpuscular HGB Conc 34.1 g/dL (31.5-36.5); Mean Corpuscular Volume 102 fL (80-100); NEUTROPHILS ABSOLUTE AUTO 5.33 K/mm3 (1.96-9.15); NEUTROPHILS PERCENT AUTO 57 % (41-73); NRBC ABSOLUTE 0.00 K/mm3 (0.00-0.02); NRBC Auto 0.0 /100 WBC (0.0-0.2); Platelet Count 144 K/mm3 (150-400); RDW Coefficient Variation 13.6 % (11.7-14.2); RDW Standard Deviation 50.4 fL (35.1-46.3)
[2025-09-28 05:59] LABS: Alanine Aminotransfer (ALT/SGP 26.0 U/L (12-78); Albumin, Blood 3.1 g/dL (3.4-5.0); Albumin/Globulin Ratio 0.8 (0.8-1.8); Anion Gap 8.0 mmol/L (3-11); Aspartate Aminotrans (AST/SGOT 19.0 U/L (12-37); Bilirubin, Total 0.4 mg/dL (0.1-1.0); Blood Urea Nitrogen 24.0 mg/dL (8-24); CO2, Blood 24.0 mmol/L (21-32); Calcium, Blood 8.9 mg/dL (8.5-10.1); Chloride, Blood 109.0 mmol/L (98-108); Creatinine, Blood 1.08 mg/dL (0.60-1.20); Globulin, Blood 3.9 g/dL (2.2-4.0); Glucose, Blood 108.0 mg/dL (70-99); Potassium, Blood 3.4 mmol/L (3.5-5.5); Sodium, Blood 138.0 mmol/L (136-145); Total Protein, Blood 7.0 g/dL (6.4-8.2)
[2025-09-28 06:15] VITALS: BP 105/67
--- NOTE | 2025-09-28 06:26 | NUR ---
Shift Summary Pt on BiPap at night and cont. O2 monitor. Only brief minor desaturations into the upper 80's at times when falling asleep without BiPaP on. Pt c/o of 6/10 back and hip pain, medicated x1 per EMAR. After pain medicine pt was able to sleep well t/o the night. 1800 mL fluid restriction maintaned. Male purewick in place for voids. Pt on bedrest. Pt on tele, AV paced at 60, no events.
[2025-09-28 07:43] VITALS: BP 94/56
[2025-09-28 07:46] VITALS: BP 91/58
[2025-09-28 09:06] VITALS: BP 109/60
[2025-09-28] MEDS ORDERED: JARDIANCE25 MG PO (11:30)
[2025-09-28] MEDS ORDERED: SPIR25 PO (11:32)
[2025-09-28] MEDS ORDERED: HUMALOG JU100 UNIT/2 SC (11:43)
--- NOTE | 2025-09-28 12:15 | NUR ---
PT DISCHARGED TO [facility]. ALL VALUABLES RETURNED AND SENT WITH THE PT. ATTEMPT TO CALL REPORT TO [facility] NURSE, UNABLE TO REACH AT THIS TIME.
== END 2025-09-28 12:12 ==
LOC: ER 04:40 → MEDS 04:41
PROVIDERS: Emergency Medicine; Hospitalist; ADMIT Internal Medicine
DX: I11.0 Hypertensive heart disease with heart failure (principal); I50.33 Acute on chronic diastolic (congestive) heart failure; G47.33 Obstructive sleep apnea (adult) (pediatric); E11.9 Type 2 diabetes mellitus without complications; E83.119 Hemochromatosis, unspecified; N40.0 Benign prostatic hyperplasia without lower urinary tract symptoms; F41.8 Other specified anxiety disorders; I48.91 Unspecified atrial fibrillation; E87.6 Hypokalemia; E78.5 Hyperlipidemia, unspecified; I48.0 Paroxysmal atrial fibrillation; I34.0 Nonrheumatic mitral (valve) insufficiency; G89.4 Chronic pain syndrome; F17.210 Nicotine dependence, cigarettes, uncomplicated; Z95.810 Presence of automatic (implantable) cardiac defibrillator; Z79.01 Long term (current) use of anticoagulants; Z79.84 Long term (current) use of oral hypoglycemic drugs; Z79.899 Other long term (current) drug therapy; Z88.8 Allergy status to other drugs, medicaments and biological substances
CPT/HCPCS: 36415; 71046; 80048; 80053; 82947; 83735; 83880; 84100; 84484; 85025; 85610; 85730; 87637; 93005; 93010; 94640; 94660; 94664; 94762; 96374; 96375; 96376; 99285-25; A9270; G0378; J1815; J1938; J3480; J7050

== ENCOUNTER 2025-10-12 13:26 | Emergency (ER) | payer OTHER ==
[~2025-10-12] VITALS: Ht 182.9 cm; Wt 131.5 kg
[~2025-10-12 13:26] MED LIST changes: +HUMALOG JU100 UNIT/2 SC; +JARDIANCE25 MG PO; +SPIR25 PO
[2025-10-12 13:52] LABS: BASOPHILS ABSOLUTE AUTO 0.06 K/mm3 (0.00-0.23); BASOPHILS PERCENT AUTO 1 % (0-2); EOSINOPHILS ABSOLUTE AUTO 0.10 K/mm3 (0.00-0.68); EOSINOPHILS PERCENT AUTO 1 % (0-6); Hematocrit 38.3 % (37.0-53.0); Hemoglobin 12.9 g/dL (13.5-17.5); IMMATURE GRAN ABSOLUTE AUTO 0.07 K/mm3 (0.00-0.10); IMMATURE GRAN PERCENT AUTO 1 % (0-1); LYMPHOCYTES ABSOLUTE AUTO 2.34 K/mm3 (0.84-5.20); LYMPHOCYTES PERCENT AUTO 26 % (21-46); MONOCYTES ABSOLUTE AUTO 0.75 K/mm3 (0.16-1.47); MONOCYTES PERCENT AUTO 8 % (4-13); Mean Corpuscular HGB Conc 33.7 g/dL (31.5-36.5); Mean Corpuscular Volume 103 fL (80-100); NEUTROPHILS ABSOLUTE AUTO 5.66 K/mm3 (1.96-9.15); NEUTROPHILS PERCENT AUTO 63 % (41-73); NRBC ABSOLUTE 0.00 K/mm3 (0.00-0.02); NRBC Auto 0.0 /100 WBC (0.0-0.2); Platelet Count 188 K/mm3 (150-400); RDW Coefficient Variation 13.5 % (11.7-14.2); RDW Standard Deviation 51.0 fL (35.1-46.3)
[2025-10-12 14:05] LABS: Source, Urine Suprapubic Cath
[2025-10-12 14:31] LABS: Color, Urine Yellow (P-Yellow); Glucose Qualitative, Urine 3+ (Neg); Ketones, Urine Neg (Neg); Leukocyte Esterase, Urine 3+ (Neg); Protein, Urine 3+ (Neg); Specific Gravity, Urine 1.015 (1.003-1.022); Urobilinogen, Urine 1+ (Normal)
[2025-10-12 14:33] LABS: Alanine Aminotransfer (ALT/SGP 19.0 U/L (12-78); Albumin, Blood 2.7 g/dL (3.4-5.0); Albumin/Globulin Ratio 0.6 (0.8-1.8); Anion Gap 11.0 mmol/L (3-11); Aspartate Aminotrans (AST/SGOT 20.0 U/L (12-37); Bilirubin, Total 0.6 mg/dL (0.1-1.0); Blood Urea Nitrogen 26.0 mg/dL (8-24); CO2, Blood 25.0 mmol/L (21-32); Calcium, Blood 8.6 mg/dL (8.5-10.1); Chloride, Blood 105.0 mmol/L (98-108); Creatinine, Blood 1.44 mg/dL (0.60-1.20); Globulin, Blood 4.5 g/dL (2.2-4.0); Glucose, Blood 111.0 mg/dL (70-99); Potassium, Blood 3.5 mmol/L (3.5-5.5); Sodium, Blood 137.0 mmol/L (136-145); Total Protein, Blood 7.2 g/dL (6.4-8.2)
[2025-10-12 14:43] LABS: Bilirubin, Urine 1+ (Neg)
[2025-10-12 14:45] LABS: White Blood Cells, Urine TNTC /hpf (0-5)
[2025-10-12] MEDS ORDERED: CefTRIAXone Sodium 1,000 MG in NS 100 ML IV ONE (14:50)
[2025-10-12] MEDS ORDERED: CEFD300 PO (14:52)
[2025-10-12 15:05] VITALS: BP 108/61
== END 2025-10-12 16:10 | disposition home or self-care (01) ==
LOC: ER 13:26
PROVIDERS: Emergency Medicine
DX: N39.0 Urinary tract infection, site not specified (principal); R41.0 Disorientation, unspecified; E11.9 Type 2 diabetes mellitus without complications; I25.2 Old myocardial infarction; I11.0 Hypertensive heart disease with heart failure; I50.9 Heart failure, unspecified; I25.10 Atherosclerotic heart disease of native coronary artery without angina pectoris; E78.5 Hyperlipidemia, unspecified; I48.91 Unspecified atrial fibrillation; F17.210 Nicotine dependence, cigarettes, uncomplicated; Z79.4 Long term (current) use of insulin; Z79.84 Long term (current) use of oral hypoglycemic drugs; Z79.82 Long term (current) use of aspirin; Z79.01 Long term (current) use of anticoagulants; Z79.899 Other long term (current) drug therapy; Z95.0 Presence of cardiac pacemaker; Z88.8 Allergy status to other drugs, medicaments and biological substances; Z04.1 Encounter for examination and observation following transport accident; W17.89XA Other fall from one level to another, initial encounter
CPT/HCPCS: 51701; 70450; 71046; 72125; 80053; 81001; 84484; 85025; 87077; 87086; 87186; 93005; 93010; 96365; 99284-25; 99285-25; J0696

== ENCOUNTER 2025-10-12 16:46 | Emergency (ER) | payer OTHER ==
[~2025-10-12] VITALS: Ht 172.7 cm; Wt 102.1 kg
[~2025-10-12 16:46] MED LIST changes: +CEFD300 PO
[2025-10-12 18:53] VITALS: BP 120/56
== END 2025-10-12 19:36 | disposition home or self-care (01) ==
LOC: ER 16:46
DX: Z04.1 Encounter for examination and observation following transport accident (principal); W17.89XA Other fall from one level to another, initial encounter; Z79.01 Long term (current) use of anticoagulants; I11.0 Hypertensive heart disease with heart failure; I50.9 Heart failure, unspecified; I25.2 Old myocardial infarction; I25.10 Atherosclerotic heart disease of native coronary artery without angina pectoris; E11.9 Type 2 diabetes mellitus without complications; E78.5 Hyperlipidemia, unspecified; I48.91 Unspecified atrial fibrillation; F17.210 Nicotine dependence, cigarettes, uncomplicated; Z88.8 Allergy status to other drugs, medicaments and biological substances; Z79.82 Long term (current) use of aspirin; Z79.4 Long term (current) use of insulin; Z79.84 Long term (current) use of oral hypoglycemic drugs; Z79.899 Other long term (current) drug therapy; Z95.0 Presence of cardiac pacemaker
CPT/HCPCS: 70450; 72125; 99284-25

== ENCOUNTER 2025-10-24 19:33 | Inpatient (IN) | payer OTHER ==
[~2025-10-24] VITALS: Ht 177.8 cm; Wt 113.4 kg
[2025-10-24 20:55] LABS: BASOPHILS ABSOLUTE AUTO 0.07 K/mm3 (0.00-0.23); BASOPHILS PERCENT AUTO 1 % (0-2); EOSINOPHILS ABSOLUTE AUTO 0.09 K/mm3 (0.00-0.68); EOSINOPHILS PERCENT AUTO 1 % (0-6); Hematocrit 37.7 % (37.0-53.0); Hemoglobin 12.8 g/dL (13.5-17.5); IMMATURE GRAN ABSOLUTE AUTO 0.08 K/mm3 (0.00-0.10); IMMATURE GRAN PERCENT AUTO 1 % (0-1); LYMPHOCYTES ABSOLUTE AUTO 2.52 K/mm3 (0.84-5.20); LYMPHOCYTES PERCENT AUTO 24 % (21-46); MONOCYTES ABSOLUTE AUTO 0.66 K/mm3 (0.16-1.47); MONOCYTES PERCENT AUTO 6 % (4-13); Mean Corpuscular HGB Conc 34.0 g/dL (31.5-36.5); Mean Corpuscular Volume 103 fL (80-100); NEUTROPHILS ABSOLUTE AUTO 6.98 K/mm3 (1.96-9.15); NEUTROPHILS PERCENT AUTO 67 % (41-73); NRBC ABSOLUTE 0.00 K/mm3 (0.00-0.02); NRBC Auto 0.0 /100 WBC (0.0-0.2); Platelet Count 211 K/mm3 (150-400); RDW Coefficient Variation 14.5 % (11.7-14.2); RDW Standard Deviation 53.6 fL (35.1-46.3)
[2025-10-24 21:51] LABS: Alanine Aminotransfer (ALT/SGP 17.0 U/L (12-78); Albumin, Blood 2.9 g/dL (3.4-5.0); Albumin/Globulin Ratio 0.7 (0.8-1.8); Anion Gap 12.0 mmol/L (3-11); Aspartate Aminotrans (AST/SGOT 20.0 U/L (12-37); Bilirubin, Total 0.7 mg/dL (0.1-1.0); Blood Urea Nitrogen 26.0 mg/dL (8-24); CO2, Blood 26.0 mmol/L (21-32); Calcium, Blood 8.5 mg/dL (8.5-10.1); Chloride, Blood 100.0 mmol/L (98-108); Creatinine, Blood 1.44 mg/dL (0.60-1.20); Globulin, Blood 4.3 g/dL (2.2-4.0); Glucose, Blood 118.0 mg/dL (70-99); Potassium, Blood 3.6 mmol/L (3.5-5.5); Sodium, Blood 134.0 mmol/L (136-145); Total Protein, Blood 7.2 g/dL (6.4-8.2)
[2025-10-24] MEDS ORDERED: FLU VACC TS2025(65UP)/MF59C/PF 45 MCG/0.5 ML SYRINGE IM SCH (23:35)
[2025-10-25] VITALS (7 sets, daily range): BP systolic 105–123; BP diastolic 54–68
--- NOTE | 2025-10-25 04:16 | NUR ---
ASSUMED CARE AT 0130. PT ORIENTED TO ROOM, LUNGS ARE CRACKLY IN BASES ON AUSCULTATION PT STATES HE IS SoB WHEN LYING FLAT. PT IS VPACED @60 PER GEAR NICKER. PT IS AO4 AND PLEASANT. PLACED ON MALE PUREWICK D/T NEED FOR ACCURATE I&O WELL INCONTINENCE. PT HAS LBKA AND PRESENTS WITH A LARGE BRUISE ON HIS RIGHT FOREARM AND REDNESS ON FOOT. PT USES BIPAP AT NIGHT TO SLEEP. USES CALL LIGHT APPROPRIATELY.
[2025-10-25 04:59] LABS: BASOPHILS ABSOLUTE AUTO 0.02 K/mm3 (0.00-0.23); BASOPHILS PERCENT AUTO 0 % (0-2); EOSINOPHILS ABSOLUTE AUTO 0.00 K/mm3 (0.00-0.68); EOSINOPHILS PERCENT AUTO 0 % (0-6); Hematocrit 37.7 % (37.0-53.0); Hemoglobin 12.7 g/dL (13.5-17.5); IMMATURE GRAN ABSOLUTE AUTO 0.05 K/mm3 (0.00-0.10); IMMATURE GRAN PERCENT AUTO 1 % (0-1); LYMPHOCYTES ABSOLUTE AUTO 0.69 K/mm3 (0.84-5.20); LYMPHOCYTES PERCENT AUTO 13 % (21-46); MONOCYTES ABSOLUTE AUTO 0.09 K/mm3 (0.16-1.47); MONOCYTES PERCENT AUTO 2 % (4-13); Mean Corpuscular HGB Conc 33.7 g/dL (31.5-36.5); Mean Corpuscular Volume 104 fL (80-100); NEUTROPHILS ABSOLUTE AUTO 4.57 K/mm3 (1.96-9.15); NEUTROPHILS PERCENT AUTO 84 % (41-73); NRBC ABSOLUTE 0.00 K/mm3 (0.00-0.02); NRBC Auto 0.0 /100 WBC (0.0-0.2); Platelet Count 189 K/mm3 (150-400); RDW Coefficient Variation 14.0 % (11.7-14.2); RDW Standard Deviation 52.7 fL (35.1-46.3)
[2025-10-25 05:31] LABS: Alanine Aminotransfer (ALT/SGP 20.0 U/L (12-78); Albumin, Blood 3.1 g/dL (3.4-5.0); Albumin/Globulin Ratio 0.7 (0.8-1.8); Anion Gap 11.0 mmol/L (3-11); Aspartate Aminotrans (AST/SGOT 19.0 U/L (12-37); Bilirubin, Total 0.7 mg/dL (0.1-1.0); Blood Urea Nitrogen 27.0 mg/dL (8-24); CO2, Blood 24.0 mmol/L (21-32); Calcium, Blood 9.1 mg/dL (8.5-10.1); Chloride, Blood 101.0 mmol/L (98-108); Creatinine, Blood 1.42 mg/dL (0.60-1.20); Globulin, Blood 4.3 g/dL (2.2-4.0); Glucose, Blood 169.0 mg/dL (70-99); Magnesium, Blood 2.5 mg/dL (1.6-2.4); Potassium, Blood 3.6 mmol/L (3.5-5.5); Sodium, Blood 132.0 mmol/L (136-145); Total Protein, Blood 7.4 g/dL (6.4-8.2)
[2025-10-25] MEDS ORDERED: Insulin Human Lispro 100 Units/ML 3ML Syringe SC SCH (07:30)
--- NOTE | 2025-10-25 18:20 | NUR ---
SHIFT SUMMARY PT A&OX4, VSS, ON 3L O2 NC, Q2H REPOSITIONING, TOLERATING SOME PO, VOIDING, AND DENIED PAIN. DIURETIC GIVEN PER ORDER. FLUID RESTRICITON OF 1800 MLS. NO OTHER ACUTE CHANGES. CALL LIGHT WITHIN REACH AND PT ABLE TO MAKE NEEDS KNOWN.
[2025-10-26] VITALS (9 sets, daily range): BP systolic 109–124; BP diastolic 57–79
[2025-10-26] MEDS ORDERED: Albuterol 2.5 MG/3 ML VIAL INH PRN (02:00)
[2025-10-26 04:13] LABS: BASOPHILS ABSOLUTE AUTO 0.05 K/mm3 (0.00-0.23); BASOPHILS PERCENT AUTO 1 % (0-2); EOSINOPHILS ABSOLUTE AUTO 0.07 K/mm3 (0.00-0.68); EOSINOPHILS PERCENT AUTO 1 % (0-6); Hematocrit 38.9 % (37.0-53.0); Hemoglobin 12.9 g/dL (13.5-17.5); IMMATURE GRAN ABSOLUTE AUTO 0.09 K/mm3 (0.00-0.10); IMMATURE GRAN PERCENT AUTO 1 % (0-1); LYMPHOCYTES ABSOLUTE AUTO 2.34 K/mm3 (0.84-5.20); LYMPHOCYTES PERCENT AUTO 21 % (21-46); MONOCYTES ABSOLUTE AUTO 0.79 K/mm3 (0.16-1.47); MONOCYTES PERCENT AUTO 7 % (4-13); Mean Corpuscular HGB Conc 33.2 g/dL (31.5-36.5); Mean Corpuscular Volume 102 fL (80-100); NEUTROPHILS ABSOLUTE AUTO 7.73 K/mm3 (1.96-9.15); NEUTROPHILS PERCENT AUTO 70 % (41-73); NRBC ABSOLUTE 0.00 K/mm3 (0.00-0.02); NRBC Auto 0.0 /100 WBC (0.0-0.2); Platelet Count 224 K/mm3 (150-400); RDW Coefficient Variation 14.3 % (11.7-14.2); RDW Standard Deviation 52.6 fL (35.1-46.3)
--- NOTE | 2025-10-26 04:36 | NUR ---
SHIFT SUMMARY PATIENT IS ALERT AND ORIENTED. PATIENT HAS HAD NO ACUTE EVENTS THIS SHIFT. VITAL SIGNS REVIEWED. PATIENT REMAINS ON 3L O2. PATIENT HAS BEEN REPOSITIONING Q2. PATIENT HAS HAD PUREWICK IN PLACE WITH NO INCIDENTS. PATIENT HAS NO COMPLAINTS OF PAIN, NAUSEA, SOB OR VOMITTING THIS SHIFT. BED IN LOCKED AND LOWEST POSITION. CALL LIGHT IN PLACE.
[2025-10-26 06:23] LABS: Alanine Aminotransfer (ALT/SGP 23.0 U/L (12-78); Albumin, Blood 2.9 g/dL (3.4-5.0); Albumin/Globulin Ratio 0.7 (0.8-1.8); Anion Gap 11.0 mmol/L (3-11); Aspartate Aminotrans (AST/SGOT 22.0 U/L (12-37); Bilirubin, Total 0.8 mg/dL (0.1-1.0); Blood Urea Nitrogen 31.0 mg/dL (8-24); CO2, Blood 24.0 mmol/L (21-32); Calcium, Blood 8.9 mg/dL (8.5-10.1); Chloride, Blood 102.0 mmol/L (98-108); Creatinine, Blood 1.4 mg/dL (0.60-1.20); Globulin, Blood 4.1 g/dL (2.2-4.0); Glucose, Blood 138.0 mg/dL (70-99); Potassium, Blood 3.4 mmol/L (3.5-5.5); Sodium, Blood 134.0 mmol/L (136-145); Total Protein, Blood 7.0 g/dL (6.4-8.2)
[2025-10-26] MEDS ORDERED: Insulin Glargine-Yfgn 100 Unit/mL 3 ML SYR SC SCH (09:00)
[2025-10-26] MEDS ORDERED: Folic Acid 1 MG TAB PO SCH (09:00)
[2025-10-26] MEDS ORDERED: Potassium Chloride 10 Meq Tablet SA PO SCH (09:00)
--- NOTE | 2025-10-26 18:11 | NUR ---
SHIFT SUMMARY PT ON RA SATS 94-96%. PT K 3.4 THIS AM, ORAL K GIVEN PER ORDER. Q2H REPOSITIONING T/O SHIFT. PHYSICAL THERAPY ROUNDED ON PT, SEE THERAPY NOTE. NO OTHER ACUTE CHANGES. CALL LIGHT WITHIN REACH PT ABLE TO MAKE NEEDS KNOWN.
[2025-10-27] VITALS (9 sets, daily range): BP systolic 93–133; BP diastolic 38–69
--- NOTE | 2025-10-27 04:21 | NUR ---
SHIFT SUMMARY PATIENT IS ALERT AND ORIENTED. PATIENT HAS HAD NO ACUTE EVENTS THIS SHIFT. VITAL SIGNS REVIEWED. PATIENT HAS HAD NO COMPLAINTS OF PAIN, NAUSEA, SOB OR VOMITTING. PATIENT HAS BEEN SATTING ABOVE 94 ON RA. PATIENT HAS BEEN REPOSITIONED OFTEN. CALL LIGHT IN PLACE. BED IN LOCKED AND LOWEST POSITION.
--- NOTE | 2025-10-27 15:34 | NUR ---
ROUNDED ON PATIENT. HE REPORTED THAT HE WANTED TO GO HOME. HE EXPRESSED THAT HE IS FEELING MUCH BETTER. HE ASKED HOW MUCH FLUID HE HAD URINATED OUT. READ THE REPORT TO HIM RELATED TO HIS URINE OUTPUT.
[2025-10-27 16:50] LABS: BASOPHILS ABSOLUTE AUTO 0.05 K/mm3 (0.00-0.23); BASOPHILS PERCENT AUTO 1 % (0-2); EOSINOPHILS ABSOLUTE AUTO 0.06 K/mm3 (0.00-0.68); EOSINOPHILS PERCENT AUTO 1 % (0-6); Hematocrit 40.8 % (37.0-53.0); Hemoglobin 13.4 g/dL (13.5-17.5); IMMATURE GRAN ABSOLUTE AUTO 0.05 K/mm3 (0.00-0.10); IMMATURE GRAN PERCENT AUTO 1 % (0-1); LYMPHOCYTES ABSOLUTE AUTO 1.74 K/mm3 (0.84-5.20); LYMPHOCYTES PERCENT AUTO 19 % (21-46); MONOCYTES ABSOLUTE AUTO 0.71 K/mm3 (0.16-1.47); MONOCYTES PERCENT AUTO 8 % (4-13); Mean Corpuscular HGB Conc 32.8 g/dL (31.5-36.5); Mean Corpuscular Volume 104 fL (80-100); NEUTROPHILS ABSOLUTE AUTO 6.72 K/mm3 (1.96-9.15); NEUTROPHILS PERCENT AUTO 72 % (41-73); NRBC ABSOLUTE 0.00 K/mm3 (0.00-0.02); NRBC Auto 0.0 /100 WBC (0.0-0.2); Platelet Count 203 K/mm3 (150-400); RDW Coefficient Variation 14.7 % (11.7-14.2); RDW Standard Deviation 55.7 fL (35.1-46.3)
[2025-10-27 17:14] LABS: Alanine Aminotransfer (ALT/SGP 22.0 U/L (12-78); Albumin, Blood 3.1 g/dL (3.4-5.0); Albumin/Globulin Ratio 0.8 (0.8-1.8); Anion Gap 7.0 mmol/L (3-11); Aspartate Aminotrans (AST/SGOT 16.0 U/L (12-37); Bilirubin, Total 0.5 mg/dL (0.1-1.0); Blood Urea Nitrogen 28.0 mg/dL (8-24); CO2, Blood 27.0 mmol/L (21-32); Calcium, Blood 8.8 mg/dL (8.5-10.1); Chloride, Blood 105.0 mmol/L (98-108); Creatinine, Blood 1.41 mg/dL (0.60-1.20); Globulin, Blood 4.1 g/dL (2.2-4.0); Glucose, Blood 106.0 mg/dL (70-99); Magnesium, Blood 2.6 mg/dL (1.6-2.4); Potassium, Blood 3.7 mmol/L (3.5-5.5); Sodium, Blood 135.0 mmol/L (136-145); Total Protein, Blood 7.2 g/dL (6.4-8.2)
--- NOTE | 2025-10-27 18:22 | NUR ---
SHIFT SUMMARY PT REMAINS ON RA W/O SOB COMPLAINTS. DIURETICS GIVEN PER ORDER. NO ACUTE CHANGES. CALL LIGHT WITHIN REACH AND PT ABLE TO MAKE NEEDS KNOWN.
--- NOTE | 2025-10-28 04:00 | NUR ---
SHIFT SUMMARY: PT IS AOX4 AND ABLE TO MAKE NEEDS KNOWN. PT HAS A PRIOR TO ADMIT LEFT BKA. THE SIDE OF THE RIGHT FOOT AND RIGHT HEEL ARE RED AND HAVE A MEPALEX ON IT. PT HAS BEEN Q2 TURNED THIS SHIFT. MALE PUREWIC IS INTACT.
[2025-10-28 07:47] VITALS: BP 119/64
[2025-10-28 12:01] VITALS: BP 110/63
--- NOTE | 2025-10-28 13:30 | NUR ---
DISCAHRGE HOME PT DISCHARGE HOME VIA W/C TRANSPORT. IV REMOVED WITH [facility]NULA INTACT. PACKET SENT WITH TRANSPORT. PT USED SLIDER BOARD TO TRANSFER FROM BED TO W/C. CARE ONGOING.
== END 2025-10-28 13:25 | DRG 291 ==
LOC: ER 19:33 → MEDS 22:23 → ERHOLD 22:23 → MEDS 22:23 → ENPENDDIS 10-28 11:22 → MEDS 10-28 13:25
PROVIDERS: Emergency Medicine; Family Medicine; Internal Medicine; ADMIT Student in an Organized Health Care Education/Training Program
PROC: 5A09357 Assistance with Respiratory Ventilation, Less than 24 Consecutive Hours, Continuous Positive Airway Pressure (ICD-10-PCS; principal; 2025-10-25)
DX: I13.0 Hypertensive heart and chronic kidney disease with heart failure and stage 1 through stage 4 chronic kidney disease, or unspecified chronic kidney disease (principal); I50.33 Acute on chronic diastolic (congestive) heart failure; J96.01 Acute respiratory failure with hypoxia; G47.33 Obstructive sleep apnea (adult) (pediatric); I48.91 Unspecified atrial fibrillation; I25.10 Atherosclerotic heart disease of native coronary artery without angina pectoris; E11.51 Type 2 diabetes mellitus with diabetic peripheral angiopathy without gangrene; E78.5 Hyperlipidemia, unspecified; D64.9 Anemia, unspecified; N40.0 Benign prostatic hyperplasia without lower urinary tract symptoms; E83.119 Hemochromatosis, unspecified; N18.9 Chronic kidney disease, unspecified; E11.22 Type 2 diabetes mellitus with diabetic chronic kidney disease; I25.2 Old myocardial infarction; Z86.73 Personal history of transient ischemic attack (TIA), and cerebral infarction without residual deficits; Z95.810 Presence of automatic (implantable) cardiac defibrillator; Z88.8 Allergy status to other drugs, medicaments and biological substances; Z79.85 Long-term (current) use of injectable non-insulin antidiabetic drugs; Z79.82 Long term (current) use of aspirin; Z79.01 Long term (current) use of anticoagulants; Z79.84 Long term (current) use of oral hypoglycemic drugs; Z79.4 Long term (current) use of insulin; Z85.46 Personal history of malignant neoplasm of prostate; Z89.512 Acquired absence of left leg below knee; Z89.421 Acquired absence of other right toe(s); Z87.891 Personal history of nicotine dependence
CPT/HCPCS: 36415; 71045; 80053; 82947; 83735; 83880; 84484; 85025; 93005; 93010; 94660; 94762; 96374; 99285-25; A9270; J1815; J1938